=== PATIENT | male | born 1940 | race Caucasian/White ===

== ENCOUNTER 2019-07-13 07:56 | Day surgery (SDC) | payer MEDICARE, OTHER ==
[2019-06-30 12:25] LABS: HEMOGLOBIN 11.8 g/dL (13.5-17.0); MEAN CORPUSCULAR HEMOGLOBIN 27.1 pg (27.0-33.4); MEAN CORPUSCULAR HGB CONC 32.7 g/dL (32.0-36.0); MEAN CORPUSCULAR VOLUME 83 fl (80-97); PLATELET COUNT 240 10^3/uL (150-450); RED BLOOD COUNT 4.35 10^6/uL (4.35-5.55); RED CELL DISTRIBUTION WIDTH 14.9 % (11.5-14.0); WHITE BLOOD COUNT 9.8 10^3/uL (4.0-10.5)
[2019-06-30 12:26] LABS: INTERNATIONAL RATION (INR) 1.08
[2019-06-30 12:27] LABS: PARTIAL THROMBOPLASTIN TIME 29.7 SEC (23.5-35.8)
[2019-06-30 12:50] LABS: ANION GAP 9 (5-19); BLOOD UREA NITROGEN 25 mg/dL (7-20); CALCIUM 9.2 mg/dL (8.4-10.2); CARBON DIOXIDE 23 mmol/L (22-30); CHLORIDE 110 mmol/L (98-107); GLUCOSE 100 mg/dL (75-110); POTASSIUM 4.6 mmol/L (3.6-5.0)
--- NOTE | 2019-06-30 12:59 | EKG REPORT ---
SEVERITY:- ABNORMAL ECG - SINUS RHYTHM ATRIAL PREMATURE COMPLEX PROBABLE LEFT ATRIAL ABNORMALITY RBBB AND LAFB CONSIDER LEFT VENTRICULAR HYPERTROPHY : Confirmed by: Gigi Dyson MD 30-Jun-2019 12:58:16
[~2019-07-13 07:56] MED LIST: CEFAZOLIN SODIUM 1 GM in DEXTROSE 5%-WATER 50 ML IV PRN; LACTATED RINGERS 1000 ML IV PRN; LIDOCAINE 0.5% INJ-PF (5 MG/ML) 50 ML SDV SUBCUT PRN
[2019-07-13] MEDS ORDERED: SODIUM BICARBONATE 4.2% INJ (2.5 MEQ/5 ML) VIAL ONE (08:02)
[2019-07-13] MEDS ORDERED: LIDOCAINE 1%/EPINEPHRINE INJ 20 ML VIAL ONE (08:02)
[2019-07-13] MEDS ORDERED: POVIDONE-IODINE 5% OPH PREP SOLN 30 ML ONE (08:02)
[2019-07-13] MEDS ORDERED: MIDAZOLAM 2 MG/2 ML INJ ONE (10:08)
[2019-07-13] MEDS ORDERED: PROPOFOL INJ 200 MG/20 ML VIAL IV ONE (10:08)
[2019-07-13] MEDS ORDERED: FENTANYL CITRATE INJ/PF 100 MCG/2 ML AMPUL ONE (10:08)
[2019-07-13] MEDS ORDERED: DEXMEDETOMIDINE INJ 80 MCG/20 ML VIAL IV ONE (10:55)
[2019-07-13] MEDS ORDERED: PROMETHAZINE HCL INJ 25 MG/1 ML VIAL IV PRN ×2 (11:25)
[2019-07-13] MEDS ORDERED: MEPERIDINE HCL/PF INJ 25 MG/1 ML DISP.SYRIN IV PRN (11:25)
[2019-07-13] MEDS ORDERED: DIPHENHYDRAMINE HCL 50 MG/ML VIAL IV PRN (11:25)
[2019-07-13] MEDS ORDERED: FENTANYL CITRATE INJ/PF 100 MCG/2 ML AMPUL IV PRN ×3 (11:25)
--- NOTE | 2019-07-13 11:40 | Operative Report ---
Operative Report DATE OF SURGERY: 07/13/19 PREOPERATIVE DIAGNOSIS: Biopsy-proven basal cell carcinoma of the left ear/pret ragal with positive deep margin POSTOPERATIVE DIAGNOSIS: Same OPERATION: Excision of basal cell carcinoma from the left ear pretragal region with frozen section margin control and reconstruction with a cheek sliding advancement flap SURGEON: BONNIE LAUREANO ANESTHESIA: LMAC TISSUE REMOVED OR ALTERED: Basal cell carcinoma COMPLICATIONS: None ESTIMATED BLOOD LOSS: 2 cc PROCEDURE: Patient seen and was marked prior to being brought into the operating room. Patient was brought into the operating room and placed on the operating room table in a supine position. Patient was then prepped with a Betadine scrub and Betadine solution and draped in a sterile and aseptic manner. The area was then marked. 12 O'clock was marked towards the sideburn 3 O'clock was marked towards the helix 6:00 was marked towards the lobule 9:00 was marked towards the cheek The area was then anesthetized with 1% lidocaine with epinephrine and bicarbonate for its anesthetic and hemostatic effects. The area was then excised and marked at 12:00. The specimen was sent for frozen section. The results came back that the deep and lateral margins were free. We had considered a primary closure but this would go against the natural relaxed skin tension lines. A primary closure would be too tight and would have increased chance of dehiscence. This will leave more of a scar so we decided to use a cheek sliding advancement flap reconstruction which would camouflage the scar better and take tension off of the closure so that would be less chances of complications. By using a cheek sliding advancement flap this would allow us to use the facelift plane to develop the flap and advance this into the area of the defect. This would camouflage the scar on the ear and it would also give us the mobility of the flap to cause a tension-free closure. The patient's cheek and skin were very thick and there was no mobility and the only way to close this and get the best results with the least amount of complications was undermining this and developing the facelift flap and creating a cheek sliding advancement flap reconstruction for the defect. Then we went ahead and outlined the flap and anesthetized it. We then incised the flap and developed a flap maintaining the subdermal plexus. Then we undermined 360 to allow for plate like scarring and minimize trap door deformity. Throughout the case hemostasis was achieved with the bipolar. We then sutured the flap into its new position using 4-0 Vicryl for the subcutaneous and deep dermis. Skin was closed with a running subcuticular suture stitch using 4-0 PDS with knots being tied on the outside. And 4-0 PDS suture was used for support and placed in the central area of the incision. We then applied tincture benzoin and Steri-Strips followed by a light pressure dressing. Patient was then reversed from anesthesia and taken to the [facility] for recovery. The patient tolerated well. There were no complications. Lesion size was approximately 1.7 cm please see pathology for actual size. Portions of this note may be dictated using Rukuku voice recognition software. Occasional variations and spelling and vocabulary could be possible and are unintentional. Additionally, there is a chance that some errors may not be caught or corrected. Please notify the author of any discrepancies noted or if any statements are unclear. Subjective: No complaints Objective: Vital signs stable afebrile No bleeding Dressing intact Assessment and plan: Doing well. Elevate the operative site. Resume medications. Take antibiotics for 1 day Follow-up Full instructions were given to the patient and family and they understand Portions of this note may be dictated using Rukuku voice recognition software. Occasional variations and spelling and vocabulary could be possible and are unintentional. Additionally, there is a chance that some errors may not be caught or corrected. Please notify the offer of any discrepancies noted or if any statements are unclear.
--- NOTE | 2019-07-13 11:41 | Discharge Summary ---
Discharge Summary (SDC) - Discharge Final Diagnosis: Basal cell carcinoma of the left ear pretragal area Date of Surgery: 07/13/19 Condition: Good Treatment or Instructions: Leave the top dressing on for 2 days, then removed. Leave the steri-strip tapes on for 5 days, then removal. Then cleaning wound with peroxide and apply Neosporin/bacitracin 3 times per day. Antibiotics for 1 day, then discontinue. Elevate operative area to decrease swelling. Do not strain, or lift heavy objects. Call for excessive bleeding, increased temperature of 101, uncontrolled pain, or excessive nausea or vomiting. You may reach Dr. Pedersen through his office at [phone]. In the event of an emergency after hours, then contact Dr. Pedersen through [facility]. Return to the office for a postop check on . The time will be scheduled by the nursing staff of [facility] prior to discharge. Please give the patient a copy of their labs and EKG so they can bring this to their PMD. Thank you Portions of this note may be dictated using [employer] Dragon voice recognition software. Occasional variations and spelling and vocabulary could be possible and are unintentional. Additionally, there is a chance that some errors may not be caught or corrected. Please notify the offer of any discrepancies noted or if any statements are unclear. Referrals: KENYON ALVARENGA MD [Primary Care Provider] - Discharge Diet: As Tolerated Discharge Activity: No Lifting/Push/Pulling Report the Following to Your Physician Immediately: Unusual Bleeding - Keep head elevated. Do not sleep on the incision.
[2019-07-13 13:48] VITALS: BP 171/70
== END 2019-07-13 13:10 | disposition home or self-care (01) ==
LOC: OROUT 07:56
PROVIDERS: ATTEND Plastic Surgery
DX: C44.219 Basal cell carcinoma of skin of left ear and external auricular canal (principal); L57.0 Actinic keratosis; L57.8 Other skin changes due to chronic exposure to nonionizing radiation; Z79.01 Long term (current) use of anticoagulants; J44.9 Chronic obstructive pulmonary disease, unspecified; I10 Essential (primary) hypertension; R06.02 Shortness of breath
CPT/HCPCS: 93005; 36415 ×2; 84132; 85027; 85610; 85730; 80048; 88305 ×2; 88331 ×2; 93010; 00120; 14060; J2250; J0690; J3010; J3490 ×3; J7060; J2704; 120

== ENCOUNTER 2019-08-01 15:53 | Inpatient (IN) | payer MEDICARE, OTHER ==
[2019-08-01] MEDS ORDERED: ACETAMINOPHEN 325 MG TABLET PO ONE (16:01)
[2019-08-01] MEDS ORDERED: NORMAL SALINE 1000 ML 1,000 ML IV ONE (16:02)
--- NOTE | 2019-08-01 16:06 | ER Document Report ---
ED Medical Screen (RME) - General Chief Complaint: Altered Mental Status Stated Complaint: ALTERED Time Seen by Provider: 08/01/19 15:57 Primary Care Provider: KENYON ALVARENGA MD [Primary Care Provider] - Follow up as needed Mode of Arrival: Wheelchair Information source: Patient, Relative Notes: Patient presents with altered mental status that started sometime last evening. Patient's brother states that patient lives at home with a different brother who states that patient has had slurred speech and confusion off and on since last night. Patient with fever in triage and complains of generalized body aches. Patient speech and gait off per family member. I have greeted and performed a rapid initial assessment of this patient. A comprehensive ED assessment and evaluation of the patient, analysis of test results and completion of the medical decision making process will be conducted by additional ED providers. TRAVEL OUTSIDE OF THE [place] IN LAST 30 DAYS: No - Related Data Allergies/Adverse Reactions: No Known Allergies Allergy (Verified 08/01/19 15:58) Home Medications: list not available Past Medical History - Social History Chew tobacco use (# tins/day): No Frequency of alcohol use: None Drug Abuse: None - Past Medical History Cardiac Medical History: Reports: Hx Congestive Heart Failure, Hx Hypertension Denies: Hx Coronary Artery Disease, Hx Heart Attack Pulmonary Medical History: Reports: Hx Asthma, Hx COPD Denies: Hx Bronchitis, Hx Pneumonia Neurological Medical History: Denies: Hx Cerebrovascular Accident, Hx Seizures Renal/ Medical History: Reports: Hx Benign Prostatic Hyperplasia, Hx Kidney Stones, Hx Renal Insufficiency Musculoskeltal Medical History: Reports Hx Arthritis Psychiatric Medical History: Denies: Hx Depression Past Surgical History: Reports: Hx Cholecystectomy - Immunizations Hx Diphtheria, Pertussis, Tetanus Vaccination: Yes Physical Exam - Neurological Tyner Coma Scale Eye Opening: Spontaneous Rachel Coma Scale Verbal: Confused Rachel Coma Scale Motor: Obeys Commands Tyner Coma Scale Total: 14 Speech: Dysarthria Doctor's Discharge - Discharge Referrals: KENYON ALVARENGA MD [Primary Care Provider] - Follow up as needed
--- NOTE | 2019-08-01 16:34 | RADIOLOGY REPORT (SQ) ---
EXAM DESCRIPTION: CHEST 2 VIEWS COMPLETED DATE/TIME: 08/01/2019 4:23 pm REASON FOR STUDY: fever, AMS COMPARISON: Chest radiographs 07/30/2016 EXAM PARAMETERS: NUMBER OF VIEWS: two views TECHNIQUE: Digital Frontal and Lateral radiographic views of the chest acquired. RADIATION DOSE: NA LIMITATIONS: none FINDINGS: LUNGS AND PLEURA: Hyperexpanded lungs with flattening of the hemidiaphragms. No opacities , masses or pneumothorax. No pleural effusion. MEDIASTINUM AND HILAR STRUCTURES: No masses or contour abnormalities. HEART AND VASCULAR STRUCTURES: Unchanged cardiomediastinal contours. BONES: No acute findings. HARDWARE: None in the chest. OTHER: No other significant finding. IMPRESSION: NO ACUTE RADIOGRAPHIC FINDING IN THE CHEST. TECHNICAL DOCUMENTATION: JOB ID: [id number] [email or web address]- All Rights Reserved Reading location - IP/workstation name: [email or web address]
--- NOTE | 2019-08-01 16:37 | RADIOLOGY REPORT (SQ) ---
EXAM DESCRIPTION: CT HEAD WITHOUT COMPLETED DATE/TIME: 08/01/2019 4:23 pm REASON FOR STUDY: AMS COMPARISON: None. TECHNIQUE: Axial images acquired through the brain without intravenous contrast. Images reviewed wi th bone, brain and subdural windows. Additional sagittal and coronal reconstructions were generated. Images stored on PACS. All CT scanners at this facility use dose modulation, iterative reconstruction, and/or weight based d osing when appropriate to reduce radiation dose to as low as reasonably achievable (ALARA). [facility]: Dose Right [facility]: CareDose [facility]: Dose Right [facility]: Teradose 4D [facility]: [employer] RADIATION DOSE: CT Rad equipment meets quality standard of care and radiation dose reduction techniq ues were employed. CTDIvol: 53.2 mGy. DLP: 1097 mGy-cm. mGy. LIMITATIONS: None. FINDINGS: VENTRICLES: Prominent ventricles secondary to involutional atrophy. CEREBRUM: Diffuse brain parenchymal volume loss. No masses. No hemorrhage. No midline shift. No e vidence for acute infarction. Confluent areas of low density in the white matter most likely chronic small vessel ischemic changes. CEREBELLUM: No masses. No hemorrhage. No alteration of density. No evidence for acute infarction. EXTRAAXIAL SPACES: No fluid collections. No masses. ORBITS AND GLOBE: No intra- or extraconal masses. Normal contour of globe without masses. CALVARIUM: No fracture. PARANASAL SINUSES: No fluid or mucosal thickening. SOFT TISSUES: No mass or hematoma. OTHER: No other significant finding. IMPRESSION: MICROVASCULAR ISCHEMIA AND GENERALIZED ATROPHY. NO ACUTE IMAGING FINDINGS IN THE BRAIN EVIDENCE OF ACUTE STROKE: NO. COMMENT: Quality ID # [id number]: Final reports with documentation of one or more dose reduction techniques (e.g., Automated exposure control, adjustment of the mA and/or kV according to patient size, use of iterative reconstruction technique) TECHNICAL DOCUMENTATION: JOB ID: [id number] [employer]- All Rights Reserved Reading location - IP/workstation name: [email or web address]
[2019-08-01 16:55] LABS: HEMATOCRIT 34.1 % (37.9-51.0); HEMOGLOBIN 11.2 g/dL (13.5-17.0); MEAN CORPUSCULAR HEMOGLOBIN 26.6 pg (27.0-33.4); MEAN CORPUSCULAR HGB CONC 32.8 g/dL (32.0-36.0); MEAN CORPUSCULAR VOLUME 81 fl (80-97); PLATELET COUNT 248 10^3/uL (150-450); RED BLOOD COUNT 4.21 10^6/uL (4.35-5.55); WHITE BLOOD COUNT 23.1 10^3/uL (4.0-10.5)
[2019-08-01 17:01] LABS: VENOUS BLOOD BASE EXCESS -0.9 mmol/L; VENOUS BLOOD HCO3 22.8 mmol/L (20-32); VENOUS BLOOD PCO2 34.7 mmHg (35-63); VENOUS BLOOD PH 7.44 (7.30-7.42)
[2019-08-01 17:03] LABS: INTERNATIONAL RATION (INR) 1.14; PROTHROMBIN TIME 14.7 SEC (11.4-15.4)
[2019-08-01 17:04] LABS: PARTIAL THROMBOPLASTIN TIME 34.9 SEC (23.5-35.8)
[2019-08-01 17:16] LABS: ALBUMIN 3.5 g/dL (3.5-5.0); ALKALINE PHOSPHATASE 77 U/L (38-126); ANION GAP 10 (5-19); ASPARTATE AMINO TRANSFERASE 15 U/L (17-59); BILIRUBIN,TOTAL 1.4 mg/dL (0.2-1.3); BLOOD UREA NITROGEN 25 mg/dL (7-20); CARBON DIOXIDE 23 mmol/L (22-30); CHLORIDE 106 mmol/L (98-107); GLUCOSE 123 mg/dL (75-110); POTASSIUM 3.9 mmol/L (3.6-5.0); TOTAL PROTEIN 6.4 g/dL (6.3-8.2)
[2019-08-01 17:19] LABS: ABSOLUTE LYMPHOCYTES# (MANUAL) 0.9 10^3/uL (0.5-4.7); ABSOLUTE MONOCYTES # (MANUAL) 2.5 10^3/uL (0.1-1.4); BASOPHILS % (MANUAL) 1 % (0-2); EOSINOPHILS % (MANUAL) 0 % (0-6); LYMPHOCYTES % (MANUAL) 3 % (13-45); MONOCYTES % (MANUAL) 11 % (3-13); SEGMENTED NEUTROPHILS % (MAN) 84 % (42-78); TOTAL CELLS COUNTED 100
[2019-08-01 17:20] LABS: ANISOCYTOSIS SLIGHT; PLATELET COMMENT ADEQUATE; POLYCHROMASIA SLIGHT
--- NOTE | 2019-08-01 17:20 | ER Document Report ---
ED General - General Chief Complaint: Altered Mental Status Stated Complaint: ALTERED Time Seen by Provider: 08/01/19 15:57 Primary Care Provider: KENYON ALVARENGA MD [Primary Care Provider] - Follow up as needed Mode of Arrival: Wheelchair Notes: 78-year-old male brought in by EMS for slurred speech, disorientation, urinary incontinence, decreased oral intake and fever all of which started today. Patient was completely normal last evening. Normally walks on his own, is oriented to person place and time. Patient has acted like this in the past when he has had prior urinary tract infection. Patient currently complains of nausea this morning and dry heaving as well as left lower quadrant abdominal pain. TRAVEL OUTSIDE OF THE [place] IN LAST 30 DAYS: No - Related Data Allergies/Adverse Reactions: No Known Allergies Allergy (Verified 08/01/19 15:58) Home Medications: list not available Past Medical History - General Information source: Patient, Relative - Social History Smoking Status: Former Smoker Chew tobacco use (# tins/day): No Frequency of alcohol use: None Drug Abuse: None Family History: Reviewed & Not Pertinent Patient has suicidal ideation: No Patient has homicidal ideation: No - Past Medical History Cardiac Medical History: Reports: Hx Congestive Heart Failure, Hx Hypertension Denies: Hx Coronary Artery Disease, Hx Heart Attack Pulmonary Medical History: Reports: Hx Asthma, Hx COPD Denies: Hx Bronchitis, Hx Pneumonia Neurological Medical History: Denies: Hx Cerebrovascular Accident, Hx Seizures Renal/ Medical History: Reports: Hx Benign Prostatic Hyperplasia, Hx Kidney Stones, Hx Renal Insufficiency Musculoskeletal Medical History: Reports Hx Arthritis Psychiatric Medical History: Denies: Hx Depression Past Surgical History: Reports: Hx Cholecystectomy - Immunizations Hx Diphtheria, Pertussis, Tetanus Vaccination: Yes Hx Pneumococcal Vaccination: 06/01/13 Review of Systems - Review of Systems Constitutional: See HPI, Fever EENT: No symptoms reported Gastrointestinal: See HPI Genitourinary: See HPI, Incontinence Neurological/Psychological: See HPI, Confusion. denies: Dementia -: Yes All other systems reviewed and negative Physical Exam - Vital signs Vitals: Temp Pulse Resp BP Pulse Ox 101.1 F H 95 16 187/75 H 94 08/01/19 16:04 08/01/19 16:04 08/01/19 16:04 08/01/19 16:04 08/01/19 16:04 Interpretation: Hypertensive, Febrile - Notes Notes: GENERAL: Surprisingly alert considering the report received from family and EMS, wheeled back from CT scan sitting straight up in the wheelchair, able to stand and pivot to the bed with minimal assistance, No acute distress. HEAD: Normocephalic, atraumatic EYES: Pupils equal, round and reactive to light, extraocular movements intact. ENT: Oral mucosa moist, tongue midline. NECK: Full range of motion, supple, trachea midline. LUNGS: Clear to auscultation bilaterally, no wheezes, rales or rhonchi, no respiratory distress. HEART: Regular rate and rhythm, no murmurs, gallops, rubs. ABDOMEN: Soft, left lower quadrant abdominal tenderness to palpation, nondistended, bowel sounds present in all 4 quadrants. EXTREMITIES: Moves all 4 extremities spontaneously, no edema, radial and dorsalis pedis pulses 2/4 bilaterally. No cyanosis. NEUROLOGICAL: Alert and oriented x3, able to tell me who the president is and his age, unable to name the exact day of the week,, normal speech, no facial droop, biceps and patellar DTRs 2+ bilaterally. PSYCH: Normal mood, normal affect. SKIN: Warm, Dry, normal turgor, no rashes or lesions noted. Course - Re-evaluation Re-evalutation: 08/01/19 20:00 CBC shows leukocytosis of 23.1, mild anemia with hemoglobin 11.2, platelets normal, INR slightly prolonged, venous blood gas shows slightly elevated pH at 7.44, CMP shows stable renal failure with a BUN of 25 and creatinine 1.66, lactic acid is normal at 1.4, troponin is elevated at 0.138, suspect this is due to a supply and demand mismatch induced by sepsis. proBNP elevated at 7510, patient has peripheral edema but no fluid on the lungs, lungs do not have any crackles, urinalysis shows small blood and large leukocyte esterase with greater than 182 WBCs. This was sent for culture and blood cultures were sent as well. CT scan of head shows no acute process, chest x-ray shows no acute process, CT scan of the abdomen pelvis was ordered given his left lower quadrant abdominal pain, fever and nausea and it also showed no acute process, did show diverticulosis but no evidence of diverticulitis. Patient is being treated with Rocephin. Discussed with this patient who has a history of diastolic CHF and Peripheral edema and noncompliance with his Lasix as well as the elevated proBNP that sepsis guidelines call for a 30 ml/kg fluid bolus, but I am concerned this could put him into pulmonary edema from fluid overload. Discussed with patient that there are guidelines from the surrounding sepsis campaign that state he should receive a 30 mL/kg fluid bolus but we have to balance that with the risk of pulmonary edema. Patient states that he already feels like he has too much fluid, does not want to risk being intubated, refuses the 30 mL/kg fluid bolus. 08/01/19 20:[address] Cha, accepts patient for admission. - Vital Signs Vital signs: Temp Pulse Resp BP Pulse Ox 100.9 F H 72 18 148/55 H 95 08/01/19 19:10 08/01/19 17:20 08/01/19 19:14 08/01/19 19:14 08/01/19 19:14 - Laboratory Result Diagrams: 08/01/19 16:33 08/01/19 16:33 Laboratory results interpreted by me: 08/01/19 08/01/19 08/01/19 16:33 16:33 16:33 WBC 23.1 H RBC 4.21 L Hgb 11.2 L Hct 34.1 L MCH 26.6 L RDW 15.0 H Seg Neuts % (Manual) 84 H Lymphocytes % (Manual) 3 L Abs Neuts (Manual) 19.4 H Abs Monocytes (Manual) 2.5 H VBG pH 7.44 H VBG pCO2 34.7 L BUN 25 H Creatinine 1.66 H Est GFR ( Amer) 49 L Est GFR (MDRD) Non-Af 40 L Glucose 123 H Total Bilirubin 1.4 H AST 15 L NT-Pro-B Natriuret Pep Urine Protein Urine Glucose (UA) Urine Blood Leukocyte Esterase Rfl 08/01/19 08/01/19 16:33 17:31 WBC RBC Hgb Hct MCH RDW Seg Neuts % (Manual) Lymphocytes % (Manual) Abs Neuts (Manual) Abs Monocytes (Manual) VBG pH VBG pCO2 BUN Creatinine Est GFR ( Amer) Est GFR (MDRD) Non-Af Glucose Total Bilirubin AST NT-Pro-B Natriuret Pep 7510 H Urine Protein >=500 H Urine Glucose (UA) 50 H Urine Blood SMALL H Leukocyte Esterase Rfl LARGE H - EKG Interpretation by Me Additional EKG results interpreted by me: 08/01/19 17:18 EKG shows sinus rhythm at a rate of 94, left anterior hemiblock, right bundle branch block, no STEMI, poor R wave progression per my interpretation. Discharge - Discharge Clinical Impression: CKD (chronic kidney disease) stage 3, GFR 30-59 ml/min UTI (urinary tract infection) Qualifiers: Urinary tract infection type: acute cystitis Hematuria presence: with hematuria Qualified Code(s): N30.01 - Acute cystitis with hematuria Diastolic CHF Qualifiers: Heart failure chronicity: chronic Qualified Code(s): I50.32 - Chronic diastolic (congestive) heart failure Sepsis Qualifiers: Sepsis type: sepsis due to unspecified organism Sepsis acute organ dysfunction status: with acute organ dysfunction Severe sepsis acute organ dysfunction type: critical illness myopathy Condition: Fair Disposition: HOME, SELF-CARE Referrals: KENYON ALVARENGA MD [Primary Care Provider] - Follow up as needed
[2019-08-01 17:46] LABS: APPEARANCE,URINE CLOUDY; BILIRUBIN,URINE NEGATIVE (NEGATIVE); COLOR,URINE YELLOW; GLUCOSE, URINE 50 mg/dL (NEGATIVE); KETONES,URINE NEGATIVE (NEGATIVE); PROTEIN,URINE >=500 mg/dL (NEGATIVE); URINE SPECIFIC GRAVITY 1.017; UROBILINOGEN,URINE NEGATIVE mg/dL (<2.0)
--- NOTE | 2019-08-01 19:05 | RADIOLOGY REPORT (SQ) ---
EXAM DESCRIPTION: CT ABD/PELVIS WITH IV ONLY COMPLETED DATE/TIME: 08/01/2019 6:27 pm REASON FOR STUDY: fver, LLQ abd pain COMPARISON: CT abdomen pelvis 05/30/2015 TECHNIQUE: CT scan of the abdomen and pelvis performed using helical scanning technique with dynamic intravenous contrast injection. No oral contrast. Images reviewed with lung, soft tissue, and bone windows. Reconstructed coronal and sagittal MPR images reviewed. Delayed images for evaluation of the urinary system also acquired. All images stored on PACS. All CT scanners at this facility use dose modulation, iterative reconstruction, and/or weight based d osing when appropriate to reduce radiation dose to as low as reasonably achievable (ALARA). [facility]: Dose Right [facility]: CareDose [facility]: Dose Right [facility]: Teradose 4D [facility]: [employer] CONTRAST TYPE AND DOSE: contrast/concentration: Isovue 300.00 mg/ml; Total Contrast Delivered: 100.0 ml; Total Saline Delivered: 71.0 ml 100 mL Isovue 300- low osmolar. RENAL FUNCTION: BUN 25, creatinine 1.66 RADIATION DOSE: CT Rad equipment meets quality standard of care and radiation dose reduction techniq ues were employed. CTDIvol: 20.0 - 20.5 mGy. DLP: 2454 mGy-cm.. LIMITATIONS: None. FINDINGS: LOWER CHEST: No significant findings. Mild bibasilar atelectasis and/or scarring. Conway ry and aortic valvular calcifications. LIVER: Normal size. Stable ill-defined 1.5 cm hypoattenuating lesion within the hepatic tip. No dil ated ducts. SPLEEN: Normal size. No focal lesions. PANCREAS: No masses. No significant calcifications. No adjacent inflammation or peripancreatic fluid collections. Pancreatic duct not dilated. GALLBLADDER: Surgically absent. ADRENAL GLANDS: No significant masses or asymmetry. RIGHT KIDNEY AND URETER: Numerous renal cysts. No significant calcifications. No hydronephrosis o r hydroureter. LEFT KIDNEY AND URETER: Numerous renal cysts. No significant calcifications. No hydronephrosis or hydroureter. AORTA AND VESSELS: No aneurysm. No dissection. Renal arteries, SMA, celiac without stenosis. RETROPERITONEUM: No retroperitoneal adenopathy, hemorrhage or masses. BOWEL AND PERITONEAL CAVITY: Mild descending and sigmoid colon diverticular disease. No masses or in flammatory changes. No free fluid or peritoneal masses. APPENDIX: Normal. PELVIS: Prostatic enlargement. No free fluid. Normal bladder. ABDOMINAL WALL: No masses. No hernias. BONES: No significant or acute findings. OTHER: No other significant finding. IMPRESSION: Descending/sigmoid colon diverticulosis without evidence of acute diverticulitis. No ac tena intra-abdominal findings. TECHNICAL DOCUMENTATION: JOB ID: [id number] Quality ID # [id number]: Final reports with documentation of one or more dose reduction techniques (e.g., Au tomated exposure control, adjustment of the mA and/or kV according to patient size, use of iterative reconstruction technique) 2010 [employer]- All Rights Reserved Reading location - IP/workstation name: [email or web address]
[2019-08-01] MEDS ORDERED: CEFTRIAXONE 1 GM/D5W RTU 1 GM/50 ML RTUPB IV ONE (19:58)
[2019-08-01] MEDS ORDERED: LEVALBUTEROL HCL NEB 0.63 MG/3 ML AMPUL NEB PRN (20:52)
[2019-08-01] MEDS ORDERED: HYDRALAZINE HCL INJ/PF 20 MG/1 ML SDV IV PRN (20:52)
[2019-08-01] MEDS ORDERED: MAGNESIUM HYDROXIDE SUSP 30 ML UDCUP PO PRN (20:52)
[2019-08-01] MEDS ORDERED: MORPHINE SULFATE 10 MG/ML INJ IV PRN ×3 (20:52)
[2019-08-01] MEDS ORDERED: ACETAMINOPHEN 325 MG TABLET PO PRN (20:52)
[2019-08-01] MEDS ORDERED: MAG HYDROX/AL HYDROX/SIMETH SUSP 30 ML UDCUP PO PRN (20:52)
[2019-08-01] MEDS ORDERED: TEMAZEPAM 15 MG CAPSULE PO PRN (21:01)
[2019-08-01] MEDS ORDERED: ONDANSETRON HCL INJ/PF 4 MG/2 ML SDV IV PRN (21:01)
[2019-08-01] MEDS ORDERED: BUMETANIDE INJ/PF 1 MG/4 ML SDV IV ONE (21:30)
[2019-08-01] MEDS: HEPARIN SOD (PORCINE) 5,000 UNIT/ML 1 ML VIAL SUBCUT SCH (23:08)
[2019-08-01] MEDS: MONTELUKAST SODIUM 10 MG TABLET PO SCH (23:08)
[2019-08-01] MEDS ORDERED: INFLUENZA QUAD (6MOS+) 2019-20 VAC 0.5 ML SYR IM ONE (23:20)
--- NOTE | 2019-08-01 23:37 | EKG REPORT ---
SEVERITY:- ABNORMAL ECG - SINUS RHYTHM PROBABLE LEFT ATRIAL ABNORMALITY RBBB AND LAFB LEFT VENTRICULAR HYPERTROPHY : Confirmed by: Maria Luz Cortez 01-Aug-2019 23:34:49
[2019-08-02] MEDS: IPRATROPIUM BROMIDE 0.02% NEB 0.5 MG/2.5 ML AMPUL NEB SCH ×3 (00:08→16:54)
[2019-08-02] MEDS: LEVALBUTEROL HCL NEB 1.25 MG/3 ML AMPUL NEB SCH ×3 (00:08→16:54)
--- NOTE | 2019-08-02 00:28 | PDOC H&P ---
History of Present Illness Admission Date/PCP: 08/01/2019 20:19 KENYON ALVARENGA MD Patient complains of: Altered mental status History of Present Illness: JANEY ORTEGA is a 78 year old male who presented to the emergency room via EMS with a 1 day history of altered mental status. Patient was noted by his family to demonstrate mental confusion with slurring of his speech and an off-balance gait beginning on the evening of 07/31/2019. The patient states that he developed a subjective fever and malaise accompanied by decreased oral intake and urinary incontinence. He also developed the associated symptoms of nausea, dry heaves and moderate constant pressure discomfort in his left lower abdomen. He denies other associated or accompanying signs and symptoms. He admits similar prior episodes when he has experienced urinary tract infections. His altered mental status rapidly resolved when he was given Tylenol for his fever and IV fluids were initiated by EMS. He has not identified any additional aggravating or ameliorating factors for his altered mental status. In the emergency room he was found to have an elevated temperature at 101.1 F with a white blood count of 23,100 and a normal serum lactic acid. A urine specimen revealed marked pyuria. Patient was subsequently treated with IV Rocephin in the emergency room and admitted to the hospital for further evaluation and treatment. Past Medical History Cardiac Medical History: Reports: Congestive Heart Failure, Hypertension Denies: Coronary Artery Disease, Myocardial Infarction Pulmonary Medical History: Reports: Chronic Obstructive Pulmonary Disease (COPD) Denies: Asthma, Bronchitis, Pneumonia EENT Medical History: Denies: Cataracts, Ears - Hearing aids Neurological Medical History: Denies: Hemorrhagic CVA, Ischemic CVA, Seizures Endocrine Medical History: Reports: Obesity Denies: Diabetes Mellitus Type 1, Diabetes Mellitus Type 2, Hyperthyroidism, Hypothyroidism Renal/ Medical History: Reports: Chronic Kidney Disease, Nephrolithiasis, Other - Benign prostatic hyperplasia Malignancy Medical History: Reports: None GI Medical History: Reports: Gastroesophageal Reflux Disease Denies: Cirrhosis, Crohn's Disease, Hepatitis, Peptic Ulcer Disease, Ulcerative Colitis Musculoskeltal Medical History: Reports: Arthritis Denies: Gout Skin Medical History: Denies: Eczema, Psoriasis Psychiatric Medical History: Denies: Alcohol Dependency, Depression, Substance Abuse, Tobacco Dependency Traumatic Medical History: Reports: None Hematology: Denies: Anemia, Bleeding Tendencies Infectious Medical History: Reports: None Past Surgical History Past Surgical History: Reports: Cholecystectomy Social History Information Source: Patient Lives with: Family Smoking Status: Former Smoker Electronic Cigarette use?: No Frequency of Alcohol Use: None Hx Recreational Drug Use: No Drugs: None Hx Prescription Drug Abuse: No - Advance Directive Resuscitation Status: Full Code Surrogate healthcare decision maker:: Aidan Ortega Family History Family History: DM, Hypertension. denies: CAD, Malignancy Parental Family History Reviewed: Yes Children Family History Reviewed: No Sibling(s) Family History Reviewed.: Yes Medication/Allergy Home Medications: Potassium Chloride [Klor-Con 10] 10 meq PO BID #60 tablet.sa 05/11/14 Lisinopril [Prinivil 10 mg Tablet] 40 mg PO DAILY 05/30/15 Albuterol Sulfate [Albuterol Sulfate 2.5mg/3 mL] 1 vial IH Q4 PRN #30 vial Nebulizer [Nebulizer Machine] 1 each MC ASDIR PRN #1 kit 07/30/16 Albuterol Sulfate [Ventolin Hfa 8 gm Mdi (1 Mdi/ER Disp)] 2 puff PO QID PRN 06/30/19 Budesonide/Formoterol Fumarate [Symbicort HFA 160-4.5 mcg Inhaler 6 gm] 1 puff PO DAILY PRN 06/30/19 Furosemide 40 mg PO DAILY 06/30/19 Amlodipine Besylate [Norvasc 5 mg Tablet] 5 mg PO DAILY 07/13/19 Hydralazine HCl [Apresoline 50 mg Tablet] 50 mg PO BID 07/13/19 Montelukast Sodium [Singulair 10 mg Tablet] 10 mg PO QHS 07/13/19 Allergies/Adverse Reactions: No Known Allergies Allergy (Verified 08/01/19 15:58) Review of Systems Constitutional: PRESENT: fever(s), other - Malaise. ABSENT: chills Eyes: ABSENT: visual disturbances, other - Eye pain Ears: ABSENT: hearing changes, other - Ear pain Nose, Mouth, and Throat: ABSENT: headache(s), mouth pain, sore throat Cardiovascular: PRESENT: edema - Chronic edema of the bilateral lower extremities. ABSENT: chest pain, palpitations Respiratory: ABSENT: cough, dyspnea Gastrointestinal: PRESENT: as per HPI, abdominal pain - Left lower abdomen, nausea - With retching. ABSENT: constipation, diarrhea, vomiting Genitourinary: ABSENT: dysuria, hematuria Musculoskeletal: ABSENT: back pain, joint swelling, muscle weakness Integumentary: ABSENT: pruritus, rash Neurological: PRESENT: as per HPI, abnormal gait, abnormal speech, confusion. ABSENT: convulsions, focal weakness, memory loss, syncope Psychiatric: ABSENT: anxiety, depression Endocrine: ABSENT: cold intolerance, heat intolerance Hematologic/Lymphatic: ABSENT: easy bleeding, easy bruising Allergic/Immunologic: ABSENT: seasonal rhinorrhea Physical Exam Vital Signs: Temp Pulse Resp BP Pulse Ox 100.9 F H 72 18 148/55 H 95 08/01/19 19:10 08/01/19 17:20 08/01/19 19:14 08/01/19 19:14 08/01/19 19:14 Intake & Output 07/30/19 07/31/19 08/01/19 23:59 23:59 23:59 Weight 123.7 kg General appearance: PRESENT: no acute distress, cooperative, obese Head exam: PRESENT: atraumatic, normocephalic Eye exam: PRESENT: conjunctiva pink. ABSENT: conjunctival injection, scleral icterus Ear exam: PRESENT: normal external ear exam. ABSENT: bleeding, drainage Mouth exam: PRESENT: dry mucosa, neck supple Neck exam: ABSENT: thyromegaly, tracheal deviation Respiratory exam: PRESENT: decreased breath sounds - Mildly decreased breath sounds throughout all mejia, prolonged expiratory phas - Mildly prolonged expiratory phase noted in all mejia, rales - Fine bibasilar rales noted, symmetrical, unlabored, wheezes - Minimal expiratory wheezing noted in all mejia Cardiovascular exam: PRESENT: RRR. ABSENT: clicks, gallop, rubs Pulses: PRESENT: normal carotid pulses, normal radial pulses Vascular exam: PRESENT: normal capillary refill. ABSENT: pallor GI/Abdominal exam: PRESENT: normal bowel sounds, soft, tenderness - Mild s uprapubic and left lower abdominal tenderness without localization Rectal exam: PRESENT: deferred Extremities exam: PRESENT: pedal edema, +2 edema - 2+ pitting bilateral pretibial edema. ABSENT: joint swelling Musculoskeletal exam: ABSENT: deformity, dislocation Neurological exam: PRESENT: alert, oriented to person, oriented to place, oriented to time, oriented to situation, CN II-XII grossly intact. ABSENT: motor sensory deficit Psychiatric exam: PRESENT: appropriate affect, normal mood Skin exam: PRESENT: dry, intact, warm. ABSENT: jaundice, rash, urticaria Results Laboratory Results: 12/01/19 16:33 08/01/19 16:33 08/01/19 08/01/19 08/01/19 16:33 16:33 16:33 WBC 23.1 H RBC 4.21 L Hgb 11.2 L Hct 34.1 L MCV 81 MCH 26.6 L MCHC 32.8 RDW 15.0 H Plt Count 248 Seg Neutrophils % Not Reportable VBG pH 7.44 H VBG pCO2 34.7 L VBG HCO3 22.8 VBG Base Excess -0.9 Sodium 138.5 Potassium 3.9 Chloride 106 Carbon Dioxide 23 Anion Gap 10 BUN 25 H Creatinine 1.66 H Est GFR ( Amer) 49 L Glucose 123 H Calcium 9.0 Total Bilirubin 1.4 H AST 15 L Alkaline Phosphatase 77 Total Protein 6.4 Albumin 3.5 Urine Color Urine Appearance Urine pH Ur Specific [place] Urine Protein Urine Glucose (UA) Urine Ketones Urine Blood Urine RBC (Auto) 08/01/19 17:31 WBC RBC Hgb Hct MCV MCH MCHC RDW Plt Count Seg Neutrophils % VBG pH VBG pCO2 VBG HCO3 VBG Base Excess Sodium Potassium Chloride Carbon Dioxide Anion Gap BUN Creatinine Est GFR ( Amer) Glucose Calcium Total Bilirubin AST Alkaline Phosphatase Total Protein Albumin Urine Color YELLOW Urine Appearance CLOUDY Urine pH 5.0 Ur Specific [place] 1.017 Urine Protein >=500 H Urine Glucose (UA) 50 H Urine Ketones NEGATIVE Urine Blood SMALL H Urine RBC (Auto) 10 08/01/19 08/01/19 16:33 16:33 Troponin I 0.138 NT-Pro-B Natriuret Pep 7510 H Impressions: Chest X-Ray 08/01/19 16:02 IMPRESSION: NO ACUTE RADIOGRAPHIC FINDING IN THE CHEST. Head CT 08/01/19 16:02 IMPRESSION: MICROVASCULAR ISCHEMIA AND GENERALIZED ATROPHY. NO ACUTE IMAGING FINDINGS IN THE BRAIN EVIDENCE OF ACUTE STROKE: NO. Abdomen/Pelvis CT 08/01/19 16:29 IMPRESSION: Descending/sigmoid colon diverticulosis without evidence of acute diverticulitis. No acute intra-abdominal findings. Assessment and Plan - Diagnosis (1) UTI (urinary tract infection) Qualifiers: Urinary tract infection type: site unspecified Hematuria presence: without hematuria Qualified Code(s): N39.0 - Urinary tract infection, site not specified Is this a current diagnosis for this admission?: Yes (2) Encephalopathy Is this a current diagnosis for this admission?: Yes (3) SIRS (systemic inflammatory response syndrome) Is this a current diagnosis for this admission?: Yes (4) Chronic diastolic congestive heart failure Is this a current diagnosis for this admission?: Yes (5) BPH (benign prostatic hyperplasia) Qualifiers: Lower urinary tract symptom presence: unspecified whether lower urinary tract symptoms present Qualified Code(s): N40.0 - Benign prostatic hyperplasia without lower urinary tract symptoms Is this a current diagnosis for this admission?: Yes (6) CKD (chronic kidney disease) stage 3, GFR 30-59 ml/min Is this a current diagnosis for this admission?: Yes (7) Hypertension Qualifiers: Hypertension type: essential hypertension Qualified Code(s): I10 - Essential (primary) hypertension Is this a current diagnosis for this admission?: Yes (8) Chronic obstructive pulmonary disease Qualifiers: COPD type: unspecified COPD Qualified Code(s): J44.9 - Chronic obstructive pulmonary disease, unspecified Is this a current diagnosis for this admission?: Yes (9) Obesity (BMI 30-39.9) Is this a current diagnosis for this admission?: Yes - Plan Summary Summary: Patient is admitted to the medical service where he will receive the usual supportive and traumatic cares. He will be treated with IV antibiotics utilizing Rocephin initially pending urine and blood culture results. His serum lactic acid will be followed serially and his vital signs will be observed closely as well his mental status as part of the evaluation of possible sepsis. His antihypertensive and congestive heart failure medications will be adjusted to try to improve compliance as he will not take Lasix because it makes him pee too much. He will receive morphine sulfate 2 to 4 mg IV every 2 hours on an as- needed basis for pain utilizing a sliding scale. He will receive Tylenol 650 mg orally every 4 hours as needed for control of fever. He will be continued on his other usual medications as appropriate once his medication list has been victoria ified. Dietary consultation will be obtained for weight loss and appropriate treatment of congestive heart failure. An echocardiogram will be obtained. A CBC, metabolic profile and magnesium level will be followed as part of his ongoing management. - Time Time Spent with patient: 25-34 minutes Medications reviewed and adjusted accordingly: Yes Anticipated discharge: Home with Homehealth - Inpatient Certification Based on my medical assessment, after consideration of the patient's comorbidities, presenting symptoms, or acuity I expect that the services needed warrant INPATIENT care.: Yes I certify that my determination is in accordance with my understanding of Medicare's requirements for reasonable and necessary INPATIENT services [42 CFR 412.3e].: Yes Medical Necessity: Significant Comorbidiites Make Outpatient Treatment Too Risky, Need for Neurological Checks, Need for IV Antibiotics, Risk of Complication if Not Cared For in Hospital, Risk of Diagnosis Which Will Require Inpatient Eval/Care/Monitoring
[2019-08-02] MEDS ORDERED: DOXAZOSIN MESYLATE 1 MG TABLET PO ONE ×2 (00:29→01:00)
[2019-08-02] MEDS ORDERED: DOXAZOSIN MESYLATE 1 MG TABLET ONE (01:40)
[2019-08-02 05:09] LABS: HEMATOCRIT 32.6 % (37.9-51.0); HEMOGLOBIN 10.7 g/dL (13.5-17.0); MEAN CORPUSCULAR HEMOGLOBIN 26.4 pg (27.0-33.4); MEAN CORPUSCULAR HGB CONC 32.7 g/dL (32.0-36.0); MEAN CORPUSCULAR VOLUME 81 fl (80-97); PLATELET COUNT 222 10^3/uL (150-450); RED BLOOD COUNT 4.05 10^6/uL (4.35-5.55); RED CELL DISTRIBUTION WIDTH 14.7 % (11.5-14.0); WHITE BLOOD COUNT 21.3 10^3/uL (4.0-10.5)
[2019-08-02 05:24] LABS: ANION GAP 9 (5-19); BLOOD UREA NITROGEN 30 mg/dL (7-20); CALCIUM 8.6 mg/dL (8.4-10.2); CARBON DIOXIDE 25 mmol/L (22-30); CHLORIDE 103 mmol/L (98-107); CHOLESTEROL 143.74 mg/dL (0-200); GLUCOSE 116 mg/dL (75-110); POTASSIUM 3.6 mmol/L (3.6-5.0); TRIGLYCERIDES 106 mg/dL (<150)
[2019-08-02 05:35] LABS: DIRECT LDL 95 mg/dL (<100)
[2019-08-02] MEDS: HEPARIN SOD (PORCINE) 5,000 UNIT/ML 1 ML VIAL SUBCUT SCH ×4 (05:45→23:38)
[2019-08-02] MEDS: PANTOPRAZOLE SODIUM 40 MG TABLET.DR PO SCH ×2 (05:45→17:21)
[2019-08-02] MEDS: BUDESONIDE NEB 0.5 MG/2 ML AMPUL NEB SCH ×2 (07:55→21:20)
--- NOTE | 2019-08-02 08:53 | PDOC PROGRESS REPORT ---
Subjective Progress Note for:: 08/02/19 Subjective:: 08/02/2019-no complaints Reason For Visit: SIRS, URINARY TRACT INFECTION, CHRONIC KIDNEY Physical Exam Vital Signs: Temp Pulse Resp BP Pulse Ox 98.7 F 80 16 134/56 H 97 08/02/19 07:15 08/02/19 07:55 08/02/19 07:55 08/02/19 07:15 08/02/19 07:55 Intake & Output 08/01/19 08/02/19 08/03/19 06:59 06:59 06:59 Intake Total 50 Balance 50 Weight 120.9 kg General appearance: PRESENT: no acute distress, well-developed, well-nourished Head exam: PRESENT: atraumatic, normocephalic Eye exam: PRESENT: conjunctiva pink, EOMI, PERRLA. ABSENT: scleral icterus Ear exam: PRESENT: normal external ear exam Mouth exam: PRESENT: moist, tongue midline Neck exam: ABSENT: carotid bruit, JVD, lymphadenopathy, thyromegaly Respiratory exam: PRESENT: clear to auscultation eddi. ABSENT: rales, rhonchi, wheezes Cardiovascular exam: PRESENT: RRR. ABSENT: diastolic murmur, rubs, systolic murmur Pulses: PRESENT: normal dorsalis pedis pul Vascular exam: PRESENT: normal capillary refill GI/Abdominal exam: PRESENT: normal bowel sounds, soft. ABSENT: distended, guarding, mass, organolmegaly, rebound, tenderness Rectal exam: PRESENT: deferred Extremities exam: PRESENT: full ROM. ABSENT: calf tenderness, clubbing, pedal e corine Neurological exam: PRESENT: alert, awake, oriented to person, oriented to place, oriented to time, oriented to situation, CN II-XII grossly intact. ABSENT: motor sensory deficit Psychiatric exam: PRESENT: appropriate affect, normal mood. ABSENT: homicidal ideation, suicidal ideation Skin exam: PRESENT: dry, intact, warm. ABSENT: cyanosis, rash Results Laboratory Results: 08/02/19 04:39 08/02/19 04:39 08/01/19 08/01/19 08/01/19 16:33 16:33 16:33 WBC 23.1 H RBC 4.21 L Hgb 11.2 L Hct 34.1 L MCV 81 MCH 26.6 L MCHC 32.8 RDW 15.0 H Plt Count 248 Seg Neutrophils % Not Reportable VBG pH 7.44 H VBG pCO2 34.7 L VBG HCO3 22.8 VBG Base Excess -0.9 Sodium 138.5 Potassium 3.9 Chloride 106 Carbon Dioxide 23 Anion Gap 10 BUN 25 H Creatinine 1.66 H Est GFR ( Amer) 49 L Glucose 123 H Calcium 9.0 Magnesium Total Bilirubin 1.4 H AST 15 L Alkaline Phosphatase 77 Total Protein 6.4 Albumin 3.5 Triglycerides Cholesterol LDL Cholesterol Direct VLDL Cholesterol HDL Cholesterol TSH Urine Color Urine Appearance Urine pH Ur Specific [place] Urine Protein Urine Glucose (UA) Urine Ketones Urine Blood Urine RBC (Auto) 08/01/19 08/02/19 08/02/19 17:31 04:39 04:39 WBC 21.3 H RBC 4.05 L Hgb 10.7 L Hct 32.6 L MCV 81 MCH 26.4 L MCHC 32.7 RDW 14.7 H Plt Count 222 Seg Neutrophils % VBG pH VBG pCO2 VBG HCO3 VBG Base Excess Sodium 136.8 L Potassium 3.6 Chloride 103 Carbon Dioxide 25 Anion Gap 9 BUN 30 H Creatinine 1.78 H Est GFR ( Amer) 45 L Glucose 116 H Calcium 8.6 Magnesium 1.8 Total Bilirubin AST Alkaline Phosphatase Total Protein Albumin Triglycerides 106 Cholesterol 143.74 LDL Cholesterol Direct 95 VLDL Cholesterol 21.0 HDL Cholesterol 29 L TSH Urine Color YELLOW Urine Appearance CLOUDY Urine pH 5.0 Ur Specific [place] 1.017 Urine Protein >=500 H Urine Glucose (UA) 50 H Urine Ketones NEGATIVE Urine Blood SMALL H Urine RBC (Auto) 10 08/02/19 04:39 WBC RBC Hgb Hct MCV MCH MCHC RDW Plt Count Seg Neutrophils % VBG pH VBG pCO2 VBG HCO3 VBG Base Excess Sodium Potassium Chloride Carbon Dioxide Anion Gap BUN Creatinine Est GFR ( Amer) Glucose Calcium Magnesium Total Bilirubin AST Alkaline Phosphatase Total Protein Albumin Triglycerides Cholesterol LDL Cholesterol Direct VLDL Cholesterol HDL Cholesterol TSH 2.91 Urine Color Urine Appearance Urine pH Ur Specific [place] Urine Protein Urine Glucose (UA) Urine Ketones Urine Blood Urine RBC (Auto) 08/01/19 08/01/19 16:33 16:33 Troponin I 0.138 NT-Pro-B Natriuret Pep 7510 H Impressions: Chest X-Ray 08/01/19 16:02 IMPRESSION: NO ACUTE RADIOGRAPHIC FINDING IN THE CHEST. Head CT 08/01/19 16:02 IMPRESSION: MICROVASCULAR ISCHEMIA AND GENERALIZED ATROPHY. NO ACUTE IMAGING FINDINGS IN THE BRAIN EVIDENCE OF ACUTE STROKE: NO. Abdomen/Pelvis CT 08/01/19 16:29 IMPRESSION: Descending/sigmoid colon diverticulosis without evidence of acute diverticulitis. No acute intra-abdominal findings. Assessment and Plan - Diagnosis (1) UTI (urinary tract infection) Qualifiers: Urinary tract infection type: site unspecified Hematuria presence: without hematuria Qualified Code(s): N39.0 - Urinary tract infection, site not specified Is this a current diagnosis for this admission?: Yes Plan: 08/02/2019-continue Rocephin until cultures return. (2) BPH (benign prostatic hyperplasia) Qualifiers: Lower urinary tract symptom presence: unspecified whether lower urinary tract symptoms present Qualified Code(s): N40.0 - Benign prostatic hyperplasia without lower urinary tract symptoms Is this a current diagnosis for this admission?: Yes Plan: 08/02/2019-stable (3) CKD (chronic kidney disease) stage 3, GFR 30-59 ml/min Is this a current diagnosis for this admission?: Yes Plan: 08/02/2019-stable (4) Chronic diastolic congestive heart failure Is this a current diagnosis for this admission?: Yes Plan: 08/02/2019-not in acute exacerbation. Continue to follow (5) Chronic obstructive pulmonary disease Qualifiers: COPD type: unspecified COPD Qualified Code(s): J44.9 - Chronic obstructive pulmonary disease, unspecified Is this a current diagnosis for this admission?: Yes Plan: 08/02/2019-not in acute exacerbation continue to follow (6) Encephalopathy Is this a current diagnosis for this admission?: Yes Plan: 08/02/2019-resolved stable (7) Hypertension Qualifiers: Hypertension type: essential hypertension Qualified Code(s): I10 - Essential (primary) hypertension Is this a current diagnosis for this admission?: Yes Plan: 08/02/2019-stable (8) Obesity (BMI 30-39.9) Is this a current diagnosis for this admission?: Yes Plan: 08/02/2019-continue to educate about dietary modification (9) SIRS (systemic inflammatory response syndrome) Is this a current diagnosis for this admission?: Yes Plan: 08/02/2019-resolved stable - Plan Summary Summary: Patient is admitted to the medical service where he will receive the usual supportive and traumatic cares. He will be treated with IV antibiotics utilizing Rocephin initially pending urine and blood culture results. His serum lactic acid will be followed serially and his vital signs will be observed closely as well his mental status as part of the evaluation of possible sepsis. His antihypertensive and congestive heart failure medications will be adjusted to try to improve compliance as he will not take Lasix because it makes him pee too much. He will receive morphine sulfate 2 to 4 mg IV every 2 hours on an as- needed basis for pain utilizing a sliding scale. He will receive Tylenol 650 mg orally every 4 hours as needed for control of fever. He will be continued on his other usual medications as appropriate once his medication list has been verified. Dietary consultation will be obtained for weight loss and appropriate treatment of congestive heart failure. An echocardiogram will be obtained. A CBC, metabolic profile and magnesium level will be followed as part of his ongoing management. - Time Time Spent with patient: 15-24 minutes - Inpatient Certification Based on my medical assessment, after consideration of the patient's comorbidities, presenting symptoms, or acuity I expect that the services needed warrant INPATIENT care.: Yes I certify that my determination is in accordance with my understanding of Medicare's requirements for reasonable and necessary INPATIENT services [42 CFR 412.3e].: Yes Medical Necessity: Need for IV Antibiotics
[2019-08-02] MEDS ORDERED: LOSARTAN POTASSIUM 50 MG TABLET PO SCH (10:00)
[2019-08-02] MEDS ORDERED: TORSEMIDE 20 MG TABLET PO SCH (10:00)
[2019-08-02] MEDS ORDERED: METOPROLOL SUCCINATE 50 MG TAB.SR.24H PO SCH (10:00)
[2019-08-02] MEDS: LOSARTAN POTASSIUM 50 MG TABLET PO SCH (10:14)
[2019-08-02] MEDS: METOPROLOL SUCCINATE 50 MG TAB.SR.24H PO SCH (10:14)
[2019-08-02] MEDS: DOCUSATE SODIUM 100 MG CAPSULE PO SCH ×2 (10:15→17:22)
[2019-08-02] MEDS: SPIRONOLACTONE 25 MG TABLET PO SCH (10:15)
[2019-08-02] MEDS: TORSEMIDE 20 MG TABLET PO SCH (12:47)
[2019-08-02] MEDS: CEFTRIAXONE 1 GM/D5W RTU 1 GM/50 ML RTUPB IV SCH (12:48)
[2019-08-02 20:02] LABS: C DIFFICILE GDH NEGATIVE (NEGATIVE)
[2019-08-02] MEDS: MONTELUKAST SODIUM 10 MG TABLET PO SCH (23:29)
[2019-08-02] MEDS: DOXAZOSIN MESYLATE 1 MG TABLET PO SCH (23:37)
[2019-08-03] MEDS: IPRATROPIUM BROMIDE 0.02% NEB 0.5 MG/2.5 ML AMPUL NEB SCH ×3 (01:13→17:01)
[2019-08-03] MEDS: LEVALBUTEROL HCL NEB 1.25 MG/3 ML AMPUL NEB SCH ×3 (01:13→17:01)
[2019-08-03] MEDS: PANTOPRAZOLE SODIUM 40 MG TABLET.DR PO SCH ×2 (05:06→18:43)
[2019-08-03] MEDS: HEPARIN SOD (PORCINE) 5,000 UNIT/ML 1 ML VIAL SUBCUT SCH ×3 (05:13→21:51)
[2019-08-03 06:04] LABS: HEMATOCRIT 31.2 % (37.9-51.0); HEMOGLOBIN 10.3 g/dL (13.5-17.0); MEAN CORPUSCULAR HEMOGLOBIN 26.5 pg (27.0-33.4); MEAN CORPUSCULAR VOLUME 80 fl (80-97); PLATELET COUNT 209 10^3/uL (150-450); RED BLOOD COUNT 3.89 10^6/uL (4.35-5.55); RED CELL DISTRIBUTION WIDTH 14.8 % (11.5-14.0); WHITE BLOOD COUNT 12.8 10^3/uL (4.0-10.5)
[2019-08-03] MEDS: BUDESONIDE NEB 0.5 MG/2 ML AMPUL NEB SCH ×2 (07:55→21:39)
[2019-08-03] MEDS: SPIRONOLACTONE 25 MG TABLET PO SCH (09:28)
[2019-08-03] MEDS: METOPROLOL SUCCINATE 50 MG TAB.SR.24H PO SCH (09:29)
[2019-08-03] MEDS: LOSARTAN POTASSIUM 50 MG TABLET PO SCH (09:29)
[2019-08-03] MEDS: TORSEMIDE 20 MG TABLET PO SCH (09:30)
[2019-08-03] MEDS: DOCUSATE SODIUM 100 MG CAPSULE PO SCH ×2 (09:31→18:40)
[2019-08-03 11:27] LABS: ANION GAP 9 (5-19); BLOOD UREA NITROGEN 39 mg/dL (7-20); CALCIUM 8.5 mg/dL (8.4-10.2); CARBON DIOXIDE 24 mmol/L (22-30); CHLORIDE 105 mmol/L (98-107); GLUCOSE 94 mg/dL (75-110); POTASSIUM 3.5 mmol/L (3.6-5.0)
[2019-08-03] MEDS: NORMAL SALINE 1000 ML 1,000 ML IV PRN (12:35)
[2019-08-03] MEDS: CEFTRIAXONE 1 GM/D5W RTU 1 GM/50 ML RTUPB IV SCH (12:36)
--- NOTE | 2019-08-03 12:37 | XCELERA REPORT ---
[address] [address] Transthoracic Echocardiogram Report Name: JANEY WILSON Age: 78 yrs Gender: Male : 1940 Patient Status: Inpatient Patient Location: [address] [place], [place] [address] Study Date: 08/02/2019 05:07 PM Height: 71 in Weight: 272 lb BSA: 2.4 m2 Procedure: A two-dimensional transthoracic echocardiogram with color flow and Doppler was performed. The study was technically difficult with many images being suboptimal in quality. Study Quality: Poor. Reason For Study: CHF History: CHF. Ordering Physician: LIANE SCHWARZ Performed By: Monie Ridley Interpretation Summary The left ventricle is normal in size. There is normal left ventricular wall thickness. LV EF is 60% Left ventricular systolic function is normal. Doppler measurements suggest impaired left ventricular relaxation, which is associated with grade I/IV or mild diastolic dysfunction The left ventricular wall motion is normal. There is no thrombus. Cannot assess ASD ,VSD ,or PFO. The right ventricle is not well visualized secondary to technical limitations The right atrium is normal. The left atrium is moderately dilated. There is no vegetation seen on the mitral valve. There is no mitral valve stenosis. There is a mild amount of mitral regurgitation There is no aortic valvular vegetation. There is moderate aortic stenosis There is a peak gradient of 46 mm of Hg , and mean gradient of 28.4 mm of Hg. There is no tricuspid stenosis. Tricuspid regurgitation jet envelope not well defined to measure RV systolic pressure accurately. There is no pulmonic valvular stenosis. There is a trace amount of pulmonic regurgitation The aortic root is not well visualized but is probably normal size. The inferior vena cava appeared normal and decreased > 50% with respiration (RAP 5-10 mmHg) There is no pericardial effusion. MMode/2D Measurements & Calculations IVSd: 1.1 cm LVIDd: 6.5 cm FS: 33.6 % Ao root diam: 3.2 cm LVIDs: 4.3 cm EDV(Teich): 219.0 ml Ao root area: 8.0 cm2 LVPWd: 1.2 cm ESV(Teich): 85.1 ml EF(Teich): 61.1 % LVOT diam: 1.8 cm LVOT area: 2.4 cm2 Doppler Measurements & Calculations MV E max julian: MV dec slope: Ao V2 max: AI max julian: 92.4 cm/sec 419.3 cm/sec2 339.0 cm/sec 319.6 cm/sec MV A max julian: MV dec time: Ao max PG: AI max P.9 mmHg 122.2 cm/sec 0.22 sec 46.1 mmHg AI dec slope: MV E/A: 0.76 Ao V2 mean: 261.0 cm/sec2 251.9 cm/sec AI P1/2t: 358.6 msec Ao mean P.4 mmHg Ao V2 VTI: 69.4 cm TOMMY(V,D): 0.77 cm2 LV V1 max PG: PA V2 max: 4.6 mmHg 106.2 cm/sec LV V1 max: PA max P.5 mmHg 107.4 cm/sec Left Ventricle The left ventricle is normal in size. There is normal left ventricular wall thickness. LV EF is 60%. Left ventricular systolic function is normal. Doppler measurements suggest impaired left ventricular relaxation, which is associated with grade I/IV or mild diastolic dysfunction. The left ventricular wall motion is normal. There is no thrombus. Cannot assess ASD ,VSD ,or PFO. Right Ventricle The right ventricle is not well visualized secondary to technical limitations. Atria The right atrium is normal. Right atrium not well visualized secondary to technical limitations. The left atrium is moderately dilated. Mitral Valve There is no evidence of mitral valve prolapse. There is no vegetation seen on the mitral valve. There is no mitral valve stenosis. There is a mild amount of mitral regurgitation. Aortic Valve There is no aortic valvular vegetation. There is moderate aortic stenosis. There is a peak gradient of 46 mm of Hg , and mean gradient of 28.4 mm of Hg. There is a trace amount of aortic regurgitation. Tricuspid Valve There is no tricuspid stenosis. There is a trace amount of tricuspid regurgitation. Tricuspid regurgitation jet envelope not well defined to measure RV systolic pressure accurately. Pulmonic Valve There is no pulmonic valvular stenosis. There is a trace amount of pulmonic regurgitation. Great Vessels The aortic root is not well visualized but is probably normal size. The inferior vena cava appeared normal and decreased > 50% with respiration (RAP 5-10 mmHg). Effusions There is no pericardial effusion. : LIANE SCHWARZ Lakshmi
--- NOTE | 2019-08-03 18:49 | PDOC PROGRESS REPORT ---
Subjective Progress Note for:: 08/03/19 Subjective:: This is a 78-year-old male who was admitted for sepsis secondary to urinary tract infection. We will start an IV antibiotics. He did significantly improve. No acute event overnight. Upon encounter this morning, patient reports he feels well. Denies chest pain or shortness of breath. He says that he feels like he is at his baseline. His creatinine however has been trending up since admission. Will start him on IV fluids and repeat BMP tomorrow. Hold Aldactone and torsemide (not home meds-started on this admission) today. Reason For Visit: SIRS, URINARY TRACT INFECTION, CHRONIC KIDNEY Physical Exam Vital Signs: Temp Pulse Resp BP Pulse Ox 98.3 F 72 16 153/88 H 98 08/03/19 13:00 08/03/19 13:00 08/03/19 13:00 08/03/19 13:00 08/03/19 13:00 Intake & Output 08/02/19 08/03/19 08/04/19 06:59 06:59 06:59 Intake Total 50 1230 260 Balance 50 1230 260 Weight 266 lb 8.622 oz 263 lb 14.293 oz General appearance: PRESENT: no acute distress, well-developed, well-nourished Head exam: PRESENT: atraumatic, normocephalic Eye exam: PRESENT: conjunctiva pink, EOMI, PERRLA. ABSENT: scleral icterus Ear exam: PRESENT: normal external ear exam Mouth exam: PRESENT: moist, tongue midline Neck exam: ABSENT: carotid bruit, JVD, lymphadenopathy, thyromegaly Respiratory exam: PRESENT: clear to auscultation eddi. ABSENT: rales, rhonchi, wheezes Cardiovascular exam: PRESENT: RRR. ABSENT: diastolic murmur, rubs, systolic murmur Pulses: PRESENT: normal dorsalis pedis pul GI/Abdominal exam: PRESENT: normal bowel sounds, soft. ABSENT: distended, guarding, mass, organolmegaly, rebound, tenderness Rectal exam: PRESENT: deferred Extremities exam: PRESENT: full ROM. ABSENT: calf tenderness, clubbing, pedal edema Neurological exam: PRESENT: alert, awake, oriented to person, oriented to place, oriented to time, oriented to situation, CN II-XII grossly intact. ABSENT: motor sensory deficit Results Laboratory Results: 08/03/19 05:43 08/03/19 05:43 08/03/19 08/03/19 08/03/19 05:43 05:43 05:43 WBC 12.8 H RBC 3.89 L Hgb 10.3 L Hct 31.2 L MCV 80 MCH 26.5 L MCHC 33.0 RDW 14.8 H Plt Count 209 Sodium 137.6 Potassium 3.5 L Chloride 105 Carbon Dioxide 24 Anion Gap 9 BUN 39 H Creatinine 1.94 H Est GFR ( Amer) 41 L Glucose 94 Calcium 8.5 Magnesium 2.2 08/01/19 17:31 Clean Catch Midstream Urine Culture - Final Proteus Mirabilis 08/01/19 08/01/19 16:33 16:33 Troponin I 0.138 NT-Pro-B Natriuret Pep 7510 H Impressions: Chest X-Ray 08/01/19 16:02 IMPRESSION: NO ACUTE RADIOGRAPHIC FINDING IN THE CHEST. Head CT 08/01/19 16:02 IMPRESSION: MICROVASCULAR ISCHEMIA AND GENERALIZED ATROPHY. NO ACUTE IMAGING FINDINGS IN THE BRAIN EVIDENCE OF ACUTE STROKE: NO. Abdomen/Pelvis CT 08/01/19 16:29 IMPRESSION: Descending/sigmoid colon diverticulosis without evidence of acute diverticulitis. No acute intra-abdominal findings. Assessment and Plan - Diagnosis (1) Acute renal failure Is this a current diagnosis for this admission?: Yes Plan: Start patient on IV fluids. Repeat BMP tomorrow. (2) UTI (urinary tract infection) Qualifiers: Urinary tract infection type: site unspecified Hematuria presence: without hematuria Qualified Code(s): N39.0 - Urinary tract infection, site not spe cified Is this a current diagnosis for this admission?: Yes Plan: urine culture grew Proteus. Continue Rocephin. (3) Elevated troponin Is this a current diagnosis for this admission?: Yes - Time Time Spent with patient: 25-34 minutes
[2019-08-03] MEDS: DOXAZOSIN MESYLATE 1 MG TABLET PO SCH (21:52)
[2019-08-03] MEDS: MONTELUKAST SODIUM 10 MG TABLET PO SCH (21:52)
[2019-08-04] MEDS: IPRATROPIUM BROMIDE 0.02% NEB 0.5 MG/2.5 ML AMPUL NEB SCH ×2 (01:02→08:36)
[2019-08-04] MEDS: LEVALBUTEROL HCL NEB 1.25 MG/3 ML AMPUL NEB SCH ×2 (01:02→08:36)
[2019-08-04] MEDS: NORMAL SALINE 1000 ML 1,000 ML IV PRN (01:30)
[2019-08-04 05:33] LABS: HEMATOCRIT 31.1 % (37.9-51.0); HEMOGLOBIN 10.2 g/dL (13.5-17.0); MEAN CORPUSCULAR HEMOGLOBIN 26.7 pg (27.0-33.4); MEAN CORPUSCULAR VOLUME 81 fl (80-97); PLATELET COUNT 218 10^3/uL (150-450); RED BLOOD COUNT 3.84 10^6/uL (4.35-5.55); RED CELL DISTRIBUTION WIDTH 14.9 % (11.5-14.0); WHITE BLOOD COUNT 8.8 10^3/uL (4.0-10.5)
[2019-08-04] MEDS: HEPARIN SOD (PORCINE) 5,000 UNIT/ML 1 ML VIAL SUBCUT SCH ×2 (05:52→15:20)
[2019-08-04] MEDS: PANTOPRAZOLE SODIUM 40 MG TABLET.DR PO SCH (05:53)
[2019-08-04 05:55] LABS: ANION GAP 10 (5-19); BLOOD UREA NITROGEN 42 mg/dL (7-20); CALCIUM 8.4 mg/dL (8.4-10.2); CARBON DIOXIDE 23 mmol/L (22-30); CHLORIDE 107 mmol/L (98-107); GLUCOSE 103 mg/dL (75-110); POTASSIUM 3.7 mmol/L (3.6-5.0)
[2019-08-04] MEDS: BUDESONIDE NEB 0.5 MG/2 ML AMPUL NEB SCH (08:36)
[2019-08-04] MEDS: LOSARTAN POTASSIUM 50 MG TABLET PO SCH (09:34)
[2019-08-04] MEDS: METOPROLOL SUCCINATE 50 MG TAB.SR.24H PO SCH (09:34)
[2019-08-04] MEDS: DOCUSATE SODIUM 100 MG CAPSULE PO SCH (09:53)
[2019-08-04 13:32] VITALS: BP 145/64
[2019-08-04] MEDS: CEFTRIAXONE 1 GM/D5W RTU 1 GM/50 ML RTUPB IV SCH (15:51)
--- NOTE | 2019-08-07 17:20 | PDOC DISCHARGE SUMMARY ---
Impression - Admit/DC Date/PCP Admission Date/Primary Care Provider: 08/01/19 20:30 KENYON ALVARENGA MD Discharge Date: 08/04/19 - Discharge Diagnosis (1) Acute renal failure Is this a current diagnosis for this admission?: Yes (2) UTI (urinary tract infection) Is this a current diagnosis for this admission?: Yes (3) Elevated troponin Is this a current diagnosis for this admission?: Yes - Additional Information Resuscitation Status: Full Code Referrals: KENYON ALVARENGA MD [Primary Care Provider] - 08/10/19 2:45 pm Prescriptions: Amoxicillin/Potassium Clav [Augmentin 500-125 Tablet] 1 each PO Q12 5 Days #10 tablet Metoprolol Succinate [Toprol Xl 50 mg Tab.sr] 50 mg PO DAILY #30 tab.sr.24h Home Medications: Albuterol Sulfate [Proair HFA Inhalation Aerosol 8.5 gm MDI] 1 puff IH Q4HP PRN 08/02/19 Albuterol Sulfate [Ventolin 0.083% Neb 2.5 mg/3 mL Ampul] 2.5 mg NEB RTBID 08/02/19 Budesonide [Pulmicort Neb 0.5 mg/2 ml Ampul] 0.5 mg NEB RTQ12 08/02/19 Hydralazine HCl [Apresoline 50 mg Tablet] 50 mg PO BID 08/02/19 Lisinopril [Prinivil 40 mg Tablet] 40 mg PO DAILY 08/02/19 Montelukast Sodium [Singulair 10 mg Tablet] 10 mg PO DAILY 08/02/19 Amoxicillin/Potassium Clav [Augmentin 500-125 Tablet] 1 each PO Q12 5 Days #10 tablet 08/03/19 Metoprolol Succinate [Toprol Xl 50 mg Tab.sr] 50 mg PO DAILY #30 tab.sr.24h 08/03/19 History of Present Illiness History of Present Illness: Admitting hospitalist's H&P: JANEY WILSON is a 78 year old male who presented to the emergency room via EMS with a 1 day history of altered mental status. Patient was noted by his family to demonstrate mental confusion with slurring of his speech and an off-balance gait beginning on the evening of 07/31/2019. The patient states that he developed a subjective fever and malaise accompanied by decreased oral intake and urinary incontinence. He also developed the associated symptoms of nausea, dry heaves and moderate constant pressure discomfort in his left lower abdomen. He denies other associated or accompanying signs and symptoms. He admits similar prior episodes when he has experienced urinary tract infections. His altered mental status rapidly resolved when he was given Tylenol for his fever and IV fluids were initiated by EMS. He has not identified any additional aggravating or ameliorating factors for his altered mental status. In the emerg ency room he was found to have an elevated temperature at 101.1 F with a white blood count of 23,100 and a normal serum lactic acid. A urine specimen revealed marked pyuria. Patient was subsequently treated with IV Rocephin in the emergency room and admitted to the hospital for further evaluation and treatment. Hospital Course Hospital Course: This is a 78-year-old male who was admitted for sepsis secondary to urinary tract infection. He was started on IV antibiotics. He did significantly improve. Urine culture grew Proteus. He did also have an BO and was started on IV fluids. His creatinine did trend up and plateaued. Nephrology was consulted. However patient was not able to wait for nephrology evaluation and insisted on going home AGAINST MEDICAL ADVICE. 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 Physical Exam Vital Signs: Temp Pulse Resp BP Pulse Ox 97.5 F 68 14 145/64 H 92 08/04/19 12:00 08/04/19 12:00 08/04/19 12:00 08/04/19 12:00 08/04/19 12:00 Intake & Output 08/03/19 08/04/19 08/05/19 06:59 06:59 06:59 Intake Total 1230 2409 240 Balance 1230 2409 240 Weight 263 lb 14.293 oz 265 lb 6.985 oz General appearance: PRESENT: no acute distress, well-developed, well-nourished Head exam: PRESENT: atraumatic, normocephalic Eye exam: PRESENT: conjunctiva pink, EOMI, PERRLA. ABSENT: scleral icterus Ear exam: PRESENT: normal external ear exam Mouth exam: PRESENT: moist, tongue midline Neck exam: ABSENT: carotid bruit, JVD, lymphadenopathy, thyromegaly Respiratory exam: PRESENT: clear to auscultation eddi. ABSENT: rales, rhonchi, wheezes Cardiovascular exam: PRESENT: RRR. ABSENT: diastolic murmur, rubs, systolic murmur Pulses: PRESENT: normal dorsalis pedis pul GI/Abdominal exam: PRESENT: normal bowel sounds, soft. ABSENT: distended, guarding, mass, organolmegaly, rebound, tenderness Rectal exam: PRESENT: deferred Extremities exam: PRESENT: full ROM. ABSENT: calf tenderness, clubbing, pedal edema Neurological exam: PRESENT: alert, awake, oriented to person, oriented to place, oriented to time, oriented to situation, CN II-XII grossly intact. ABSENT: motor sensory deficit Results Laboratory Results: WBC 8.8 10^3/uL (4.0-10.5) 08/04/19 04:59 RBC 3.84 10^6/uL (4.35-5.55) L 08/04/19 04:59 Hgb 10.2 g/dL (13.5-17.0) L 08/04/19 04:59 Hct 31.1 % (37.9-51.0) L 08/04/19 04:59 MCV 81 fl (80-97) 08/04/19 04:59 MCH 26.7 pg (27.0-33.4) L 08/04/19 04:59 MCHC 33.0 g/dL (32.0-36.0) 08/04/19 04:59 RDW 14.9 % (11.5-14.0) H 08/04/19 04:59 Plt Count 218 10^3/uL (150-450) 08/04/19 04:59 Lymph % (Auto) Not Reportable 08/01/19 16:33 Metcalfe % (Auto) Not Reportable 08/01/19 16:33 Eos % (Auto) Not Reportable 08/01/19 16:33 Baso % (Auto) Not Reportable 08/01/19 16:33 Absolute Neuts (auto) Not Reportable 08/01/19 16:33 Absolute Lymphs (auto) Not Reportable 08/01/19 16:33 Absolute Monos (auto) Not Reportable 08/01/19 16:33 Absolute Eos (auto) Not Reportable 08/01/19 16:33 Absolute Basos (auto) Not Reportable 08/01/19 16:33 Total Counted 100 08/01/19 16:33 Seg Neutrophils % Not Reportable 08/01/19 16:33 Seg Neuts % (Manual) 84 % (42-78) H 08/01/19 16:33 Lymphocytes % (Manual) 3 % (13-45) L 08/01/19 16:33 Atypical Lymphs % 1 % (0) 08/01/19 16:33 Monocytes % (Manual) 11 % (3-13) 08/01/19 16:33 Eosinophils % (Manual) 0 % (0-6) 08/01/19 16:33 Basophils % (Manual) 1 % (0-2) 08/01/19 16:33 Abs Neuts (Manual) 19.4 10^3/uL (1.7-8.2) H 08/01/19 16:33 Abs Lymphs (Manual) 0.9 10^3/uL (0.5-4.7) 08/01/19 16:33 Abs Monocytes (Manual) 2.5 10^3/uL (0.1-1.4) H 08/01/19 16:33 Absolute Eos (Manual) 0.0 10^3/uL (0.0-0.6) 08/01/19 16:33 Abs Basophils (Manual) 0.2 10^3/uL (0.0-0.2) 08/01/19 16:33 Platelet Comment ADEQUATE 08/01/19 16:33 Polychromasia SLIGHT 08/01/19 16:33 Anisocytosis SLIGHT 08/01/19 16:33 PT 14.7 SEC (11.4-15.4) 08/01/19 16:33 INR 1.14 08/01/19 16:33 APTT 34.9 SEC (23.5-35.8) 08/01/19 16:33 VBG pH 7.44 (7.30-7.42) H 08/01/19 16:33 VBG pCO2 34.7 mmHg (35-63) L 08/01/19 16:33 VBG HCO3 22.8 mmol/L (20-32) 08/01/19 16:33 VBG Base Excess -0.9 mmol/L 08/01/19 16:33 Sodium 140.0 mmol/L (137-145) 08/04/19 04:59 Potassium 3.7 mmol/L (3.6-5.0) 08/04/19 04:59 Chloride 107 mmol/L (98-107) 08/04/19 04:59 Carbon Dioxide 23 mmol/L (22-30) 08/04/19 04:59 Anion Gap 10 (5-19) 08/04/19 04:59 BUN 42 mg/dL (7-20) H 08/04/19 04:59 Creatinine 2.00 mg/dL (0.52-1.25) H 08/04/19 04:59 Est GFR ( Amer) 39 (>60) L 08/04/19 04:59 Est GFR (MDRD) Non-Af 32 (>60) L 08/04/19 04:59 Glucose 103 mg/dL (75-110) 08/04/19 04:59 Lactic Acid (Sepsis) 1.4 mmol/L (0.7-2.1) 08/01/19 16:33 Calcium 8.4 mg/dL (8.4-10.2) 08/04/19 04:59 Magnesium 2.3 mg/dL (1.6-2.3) 08/04/19 04:59 Total Bilirubin 1.4 mg/dL (0.2-1.3) H 08/01/19 16:33 Direct Bilirubin 0.0 mg/dL (0.0-0.4) 08/01/19 16:33 Neonat Total Bilirubin Not Reportable 08/01/19 16:33 Neonat Direct Bilirubin Not Reportable 08/01/19 16:33 Neonat Indirect Bili Not Reportable 08/01/19 16:33 AST 15 U/L (17-59) L 08/01/19 16:33 ALT 12 U/L (<50) 08/01/19 16:33 Alkaline Phosphatase 77 U/L (38-126) 08/01/19 16:33 Troponin I 0.138 ng/mL 08/01/19 16:33 NT-Pro-B Natriuret Pep 7510 pg/mL (<450) H 08/01/19 16:33 Total Protein 6.4 g/dL (6.3-8.2) 08/01/19 16:33 Albumin 3.5 g/dL (3.5-5.0) 08/01/19 16:33 Triglycerides 106 mg/dL (<150) 08/02/19 04:39 Cholesterol 143.74 mg/dL (0-200) 08/02/19 04:39 LDL Cholesterol Direct 95 mg/dL (<100) 08/02/19 04:39 VLDL Cholesterol 21.0 mg/dL (10-31) 08/02/19 04:39 HDL Cholesterol 29 mg/dL (>40) L 08/02/19 04:39 TSH 2.91 uIU/mL (0.47-4.68) 08/02/19 04:39 Urine Color YELLOW 08/01/19 17:31 Urine Appearance CLOUDY 08/01/19 17:31 Urine pH 5.0 (5.0-9.0) 08/01/19 17:31 Ur Specific [place] 1.017 08/01/19 17:31 Urine Protein >=500 mg/dL (NEGATIVE) H 08/01/19 17:31 Urine Glucose (UA) 50 mg/dL (NEGATIVE) H 08/01/19 17:31 Urine Ketones NEGATIVE mg/dL (NEGATIVE) 08/01/19 17:31 Urine Blood SMALL (NEGATIVE) H 08/01/19 17:31 Urine Nitrite (Reflex) NEGATIVE (NEGATIVE) 08/01/19 17:31 Urine Bilirubin NEGATIVE (NEGATIVE) 08/01/19 17:31 Urine Urobilinogen NEGATIVE mg/dL (<2.0) 08/01/19 17:31 Leukocyte Esterase Rfl LARGE (NEGATIVE) H 08/01/19 17:31 Urine RBC (Auto) 10 /HPF 08/01/19 17:31 Urine WBC (Reflex) > 182 /HPF 08/01/19 17:31 Squamous Epi Cells Auto 2 /HPF 08/01/19 17:31 Urine Mucus (Auto) RARE /LPF 08/01/19 17:31 Urine Ascorbic Acid NEGATIVE (NEGATIVE) 08/01/19 17:31 Stl C. Difficile GDH Ag NEGATIVE (NEGATIVE) 08/02/19 17:50 Stl C.difficile Tox A&B NEGATIVE (NEGATIVE) 08/02/19 17:50 08/01/19 08/01/19 16:33 16:33 Troponin I 0.138 NT-Pro-B Natriuret Pep 7510 H Impressions: Chest X-Ray 08/01/19 16:02 IMPRESSION: NO ACUTE RADIOGRAPHIC FINDING IN THE CHEST. Head CT 08/01/19 16:02 IMPRESSION: MICROVASCULAR ISCHEMIA AND GENERALIZED ATROPHY. NO ACUTE IMAGING FINDINGS IN THE BRAIN EVIDENCE OF ACUTE STROKE: NO. Abdomen/Pelvis CT 08/01/19 16:29 IMPRESSION: Descending/sigmoid colon diverticulosis without evidence of acute diverticulitis. No acute intra-abdominal findings. Stroke Is this a Stroke Patient?: No Acute Heart Failure - Is this a Heart Failure Patient?: No
== END 2019-08-04 16:05 | disposition left against medical advice (07) | DRG 872 ==
LOC: ER 15:53 → EH 20:30 → 4S 21:29
PROVIDERS: ADMIT Emergency Medicine; ATTEND Emergency Medicine
DX: A41.9 Sepsis, unspecified organism (principal); N39.0 Urinary tract infection, site not specified; N17.9 Acute kidney failure, unspecified; G93.40 Encephalopathy, unspecified; I50.32 Chronic diastolic (congestive) heart failure; I13.0 Hypertensive heart and chronic kidney disease with heart failure and stage 1 through stage 4 chronic kidney disease, or unspecified chronic kidney disease; I11.0 Hypertensive heart disease with heart failure; J44.9 Chronic obstructive pulmonary disease, unspecified; E66.9 Obesity, unspecified; N18.3 Chronic kidney disease, stage 3 (moderate); K21.9 Gastro-esophageal reflux disease without esophagitis; N40.0 Benign prostatic hyperplasia without lower urinary tract symptoms; M19.90 Unspecified osteoarthritis, unspecified site; Z90.49 Acquired absence of other specified parts of digestive tract; Z83.3 Family history of diabetes mellitus; Z82.49 Family history of ischemic heart disease and other diseases of the circulatory system; Z79.899 Other long term (current) drug therapy; Z87.891 Personal history of nicotine dependence; Z68.33 Body mass index [BMI] 33.0-33.9, adult
CPT/HCPCS: 36415; 70450; 71046; 74177; 80048; 80053; 80061; 81001; 82803; 83605; 83735; 83880; 84443; 84484; 85025; 85027; 85610; 85730; 87040; 87086; 87088; 87186; 87324; 87449; 93005; 93010; 93306; 94640; 96365; 99285; J0696; J1644; J3490; J7030

== ENCOUNTER 2020-04-14 18:26 | Inpatient (IN) | payer MEDICARE, OTHER ==
[2020-04-14 19:23] LABS: VENOUS BLOOD BASE EXCESS -3.3 mmol/L; VENOUS BLOOD HCO3 21.5 mmol/L (20-32); VENOUS BLOOD PCO2 37.9 mmHg (35-63); VENOUS BLOOD PH 7.37 (7.30-7.42)
[2020-04-14 19:27] LABS: INTERNATIONAL RATION (INR) 1.21; PROTHROMBIN TIME 15.5 SEC (11.4-15.4)
[2020-04-14 19:30] LABS: ALBUMIN 3.5 g/dL (3.5-5.0); ALKALINE PHOSPHATASE 74 U/L (38-126); ANION GAP 8 (5-19); ASPARTATE AMINO TRANSFERASE 19 U/L (17-59); BILIRUBIN,DIRECT 0.1 mg/dL (0.0-0.4); BILIRUBIN,TOTAL 1.3 mg/dL (0.2-1.3); BLOOD UREA NITROGEN 27 mg/dL (7-20); CALCIUM 8.8 mg/dL (8.4-10.2); CARBON DIOXIDE 20 mmol/L (22-30); CHLORIDE 108 mmol/L (98-107); GLUCOSE 136 mg/dL (75-110); POTASSIUM 4.4 mmol/L (3.6-5.0); TOTAL PROTEIN 6.3 g/dL (6.3-8.2)
[2020-04-14 19:31] LABS: HEMATOCRIT 31.6 % (37.9-51.0); HEMOGLOBIN 10.1 g/dL (13.5-17.0); MEAN CORPUSCULAR HEMOGLOBIN 25.7 pg (27.0-33.4); MEAN CORPUSCULAR HGB CONC 32.1 g/dL (32.0-36.0); MEAN CORPUSCULAR VOLUME 80 fl (80-97); PLATELET COUNT 185 10^3/uL (150-450); RED BLOOD COUNT 3.94 10^6/uL (4.35-5.55); RED CELL DISTRIBUTION WIDTH 17.5 % (11.5-14.0); WHITE BLOOD COUNT 9.8 10^3/uL (4.0-10.5)
[2020-04-14 19:51] LABS: ABSOLUTE LYMPHOCYTES# (MANUAL) 0.3 10^3/uL (0.5-4.7); ABSOLUTE MONOCYTES # (MANUAL) 1.1 10^3/uL (0.1-1.4); BASOPHILS % (MANUAL) 0 % (0-2); EOSINOPHILS % (MANUAL) 2 % (0-6); LYMPHOCYTES % (MANUAL) 3 % (13-45); MONOCYTES % (MANUAL) 11 % (3-13); SEGMENTED NEUTROPHILS % (MAN) 84 % (42-78); TOTAL CELLS COUNTED 100; TOXIC VACUOLATION PRESENT
[2020-04-14 19:52] LABS: ANISOCYTOSIS 2+; PLATELET COMMENT ADEQUATE
[2020-04-14] MEDS ORDERED: ACETAMINOPHEN 325 MG TABLET PO ONE (20:00)
--- NOTE | 2020-04-14 20:00 | ER Document Report ---
ED General - General Chief Complaint: Altered Mental Status Stated Complaint: ALTERED MENTAL STATUS Time Seen by Provider: 04/14/20 19:57 Primary Care Provider: KENYON ALVARENGA MD [Primary Care Provider] - Follow up as needed TRAVEL OUTSIDE OF THE [place] IN LAST 30 DAYS: No - HPI Notes: 79-year-old male presents with altered mental status. Patient is limited historian. He reports he is not feeling well and has no energy. He felt that he had a fever yesterday morning. He has some shortness of breath and relates that he has a history of COPD and wears oxygen at home. He is able to tell me that he recently had stents placed in his heart. He denies abdominal pain, vomiting or diarrhea. We will touch base with son for more information. - Related Data Allergies/Adverse Reactions: No Known Allergies Allergy (Verified 08/01/19 15:58) Past Medical History - Social History Smoking Status: Unknown if Ever Smoked Family History: DM, Hypertension. denies: CAD, Malignancy - Past Medical History Cardiac Medical History: Reports: Hx Congestive Heart Failure, Hx Hypertension Denies: Hx Coronary Artery Disease, Hx Heart Attack Pulmonary Medical History: Reports: Hx COPD Denies: Hx Asthma, Hx Bronchitis, Hx Pneumonia Neurological Medical History: Denies: Hx Cerebrovascular Accident, Hx Seizures Endocrine Medical History: Denies: Hx Diabetes Mellitus Type 1, Hx Diabetes Mellitus Type 2, Hx Hyperthyroidism, Hx Hypothyroidism Renal/ Medical History: Reports: Hx Benign Prostatic Hyperplasia, Hx Kidney Stones, Hx Renal Insufficiency GI Medical History: Reports: Hx Gastroesophageal Reflux Disease. Denies: Hx Cirrhosis, Hx Crohn's Disease, Hx Hepatitis, Hx Ulcerative Colitis Musculoskeletal Medical History: Reports Hx Arthritis, Denies Hx Gout Skin Medical History: Denies Hx Eczema, Denies Hx Psoriasis Psychiatric Medical History: Denies: Hx Depression Infectious Medical History: Denies: Hx Hepatitis Past Surgical History: Reports: Hx Cholecystectomy - Immunizations Hx Diphtheria, Pertussis, Tetanus Vaccination: Yes Hx Pneumococcal Vaccination: 06/01/13 Review of Systems - Review of Systems -: Yes ROS unobtainable due to patient's medical condition Physical Exam - Vital signs Vitals: Temp BP 102.3 F H 96/54 L 04/14/20 18:39 04/14/20 18:39 Interpretation: Febrile - General General appearance: Alert In distress: Mild - HEENT Head: Normocephalic, Atraumatic Extraocular movements intact: Yes Pupils: PERRL - Respiratory Respiratory status: No respiratory distress Breath sounds: Decreased air movement, Rhonchi - Cardiovascular Rhythm: Regular Heart sounds: Normal auscultation Murmur: Yes Normal capillary refill: Yes - Abdominal Inspection: Normal, Obese Distension: No distension Bowel sounds: Normal Tenderness: Nontender - Genitourinary Notes: No erythema or discharge from penis - Back Back: Nontender - Extremities General lower extremity: Edema - Trace - Neurological Neuro grossly intact: Yes Cognition: Confused Notes: Moves all extremities and follows directions - Skin Skin Temperature: Warm Skin irregularity: negative: Rash Course - Re-evaluation Re-evalutation: 7-year-old male here with altered mental status, he is notably febrile. He has some coarse breath sounds, concern for pneumonia. Will obtain chest x-ray. COVID a possibility as well, swab to be collected. Also check urine for urinary tract infection. If no source found then would consider L PE. Will CT head to rule out bleed. 04/14/20 20:15 called son, today after lunch acting like he was "dehydrated", breathing worse when laying down, wouldn't get out of bed. hx UTI, seems similar, incoherent and not orientated. concern for not taking water pill. ankles swollen. 3 stents placed last month. valve replacement surg in may. no known covid exposure 04/14/20 20:53 Chest x-ray with right lower lobe infiltrate, will be covered with Zosyn 04/14/20 21:22 CT head without bleed 04/14/20 21:56 Fever has down trended 04/14/20 22:01 And to check on patient, he is more lucid now and his mental status has improve d. Will give small additional fluid bolus of 500 cc. Using judicious fluid. He received 1 L via EMS. 04/14/20 22:58 04/14/20 23:09 patient has been admitted to hospitalist service. updated son. pt is full code. - Vital Signs Vital signs: Temp Pulse Resp BP Pulse Ox 98.3 F 17 107/53 L 98 04/14/20 21:47 04/14/20 22:01 04/14/20 22:01 04/14/20 22:01 - Laboratory Result Diagrams: 04/14/20 18:40 04/14/20 18:40 Laboratory results interpreted by me: 04/14/20 04/14/20 04/14/20 18:40 18:40 18:40 RBC 3.94 L Hgb 10.1 L Hct 31.6 L MCH 25.7 L RDW 17.5 H Seg Neuts % (Manual) 84 H Lymphocytes % (Manual) 3 L Abs Lymphs (Manual) 0.3 L PT 15.5 H Sodium 135.5 L Chloride 108 H Carbon Dioxide 20 L BUN 27 H Creatinine 1.96 H Est GFR ( Amer) 40 L Est GFR (MDRD) Non-Af 33 L Glucose 136 H - Diagnostic Test Radiology reviewed: Image reviewed, Reports reviewed - EKG Interpretation by Me Additional EKG results interpreted by me: 04/14/20 23:02 EKG as interpreted by me. Sinus rhythm, normal rate. RBBB. Some T wave inversions lateral leads. Discharge - Discharge Clinical Impression: CAP (community acquired pneumonia) Qualifiers: Laterality: right Lung location: lower lobe of lung Qualified Code(s): J18.9 - Pneumonia, unspecified organism Condition: Fair Disposition: ADMITTED INPATIENT Admitting Provider: Fiona (Hospitalist) Unit Admitted: Telemetry Referrals: KENYON ALVARENGA MD [Primary Care Provider] - Follow up as needed
--- NOTE | 2020-04-14 20:46 | RADIOLOGY REPORT (SQ) ---
EXAM DESCRIPTION: XR CHEST 1 VIEW COMPLETED DATE/TME: 04/14/2020 19:59 CLINICAL HISTORY: 79 years, Male, fever COMPARISON: None. NUMBER OF VIEWS: TECHNIQUE: LIMITATIONS: None. FINDINGS: There may be patchy infiltrate at the right lung base, raising the possibility of pneumonia. The lungs are otherwise clear. There is possible emphysema. The heart is top normal to mildly enlarged. Pulmonary vascularity appears normal. There are atherosclerotic changes and tortuosity of the thoracic aorta. There is minimal scarring in the left mid to lower lung. IMPRESSION: Possible right basilar pneumonia. Possible emphysema. copyright 2010 [employer]- All Rights Reserved
--- NOTE | 2020-04-14 20:59 | RADIOLOGY REPORT (SQ) ---
CT HEAD WITHOUT IV CONTRAST HISTORY: Altered mental status. COMPARISON: None. TECHNIQUE: CT scan of the brain was performed without IV contrast. This exam was performed according to our departmental dose-optimization program, which includes automated exposure control, adjustment of the mA and/or kV according to patient size and/or use of iterative reconstruction technique. FINDINGS: There are scattered areas of hypoattenuation within the periventricular white matter, which likely represent chronic microvascular ischemia. No evidence of acute infarction, intracranial hemorrhage, extra-axial fluid collection, or midline shift. No air-fluid levels are seen in the paranasal sinuses to suggest acute sinusitis. No depressed skull fracture. IMPRESSION: 1. No acute intracranial findings. 2. Senescent changes with chronic microvascular ischemia.
[2020-04-14] MEDS ORDERED: PIPERACILLIN/TAZOBACTAM 3.375 GM VIAL IV ONE (21:04)
[2020-04-14] MEDS ORDERED: NORMAL SALINE 500 ML IV ONE (22:02)
[2020-04-14] MEDS ORDERED: AZITHROMYCIN INJ 500 MG VIAL IV ONE (22:44)
[2020-04-14 23:11] LABS: APPEARANCE,URINE SLIGHTLY-CLOUDY; BILIRUBIN,URINE NEGATIVE (NEGATIVE); COLOR,URINE YELLOW; GLUCOSE, URINE NEGATIVE (NEGATIVE); KETONES,URINE NEGATIVE (NEGATIVE); LEUKOCYTE ESTERASE,URINE NEGATIVE (NEGATIVE); NITRITE,URINE NEGATIVE (NEGATIVE); PROTEIN,URINE 100 mg/dL (NEGATIVE); URINE SPECIFIC GRAVITY 1.011; UROBILINOGEN,URINE NEGATIVE mg/dL (<2.0)
[2020-04-14] MEDS ORDERED: ACETAMINOPHEN 325 MG TABLET PO PRN (23:36)
[2020-04-14] MEDS ORDERED: ONDANSETRON HCL INJ/PF 4 MG/2 ML SDV IV PRN (23:36)
--- NOTE | 2020-04-14 23:58 | PDOC H&P ---
History of Present Illness Admission Date/PCP: KENYON ALVARENGA MD History of Present Illness: JANEY WILSON is a 79 year old male with a history of COPD who says he is not on oxygen at home is not a very good historian, he just tells me that he was not feeling very good at home and so his son called EMS and the next thing he knows he is in the hospital. He did have a fever here with a temperature of greater than 102 Fahrenheit. He did not have a leukocytosis but his blood pressure was a little bit low with a systolic in the 90s, but it did respond to fluid. He has chronic kidney disease which is at his baseline. He is not really been having any cough or shortness of breath, but is not very active and so he is not been trying to get up and move around a whole lot. Chest x-ray shows what looks like some baseline pulmonary fibrosis but he also appears to have a right lower lobe pulmonary edema consistent with pneumonia. Past Medical History Cardiac Medical History: Reports: Congestive Heart Failure, Hypertension Denies: Coronary Artery Disease, Myocardial Infarction Pulmonary Medical History: Reports: Chronic Obstructive Pulmonary Disease (COPD) Denies: Asthma, Bronchitis, Pneumonia Neurological Medical History: Denies: Seizures Endocrine Medical History: Denies: Diabetes Mellitus Type 1, Diabetes Mellitus Type 2, Hyperthyroidism, Hypothyroidism GI Medical History: Reports: Gastroesophageal Reflux Disease Denies: Cirrhosis, Crohn's Disease, Hepatitis, Ulcerative Colitis Musculoskeltal Medical History: Reports: Arthritis Denies: Gout Skin Medical History: Denies: Eczema, Psoriasis Psychiatric Medical History: Denies: Depression Hematology: Denies: Anemia, Bleeding Tendencies Past Surgical History Past Surgical History: Reports: Cholecystectomy Social History Smoking Status: Unknown if Ever Smoked Frequency of Alcohol Use: None Hx Recreational Drug Use: No Drugs: None Hx Prescription Drug Abuse: No Family History Family History: DM, Hypertension. denies: CAD, Malignancy Parental Family History Reviewed: Yes Children Family History Reviewed: Yes Sibling(s) Family History Reviewed.: Yes Medication/Allergy Home Medications: Albuterol Sulfate [Proair HFA Inhalation Aerosol 8.5 gm MDI] 1 puff IH Q4HP PRN 08/02/19 Albuterol Sulfate [Ventolin 0.083% Neb 2.5 mg/3 mL Ampul] 2.5 mg NEB RTBID 08/02/19 Budesonide [Pulmicort Neb 0.5 mg/2 ml Ampul] 0.5 mg NEB RTQ12 08/02/19 Hydralazine HCl [Apresoline 50 mg Tablet] 50 mg PO BID 08/02/19 Lisinopril [Prinivil 40 mg Tablet] 40 mg PO DAILY 08/02/19 Montelukast Sodium [Singulair 10 mg Tablet] 10 mg PO DAILY 08/02/19 Amoxicillin/Potassium Clav [Augmentin 500-125 Tablet] 1 each PO Q12 5 Days #10 tablet 08/03/19 Metoprolol Succinate [Toprol Xl 50 mg Tab.sr] 50 mg PO DAILY #30 tab.sr.24h 08/03/19 Allergies/Adverse Reactions: No Known Allergies Allergy (Verified 08/01/19 15:58) Review of Systems All systems: reviewed and no additional remarkable complaints except as stated - All systems were reviewed and were negative except as noted in the HPI Physical Exam Vital Signs: Temp Pulse Resp BP Pulse Ox 98.3 F 64 19 122/56 L 94 04/14/20 21:47 04/14/20 23:19 04/14/20 23:19 04/14/20 23:19 04/14/20 23:19 General appearance: PRESENT: no acute distress, cooperative, disheveled, morbidly obese Head exam: PRESENT: atraumatic, normocephalic, other - Rhinophyma Eye exam: PRESENT: EOMI, PERRLA. ABSENT: conjunctival injection, nystagmus, scleral icterus Ear exam: PRESENT: normal external ear exam Mouth exam: PRESENT: dry mucosa, neck supple Teeth exam: PRESENT: poor dentation Throat exam: ABSENT: post pharyngeal erythema Neck exam: PRESENT: full ROM. ABSENT: carotid bruit, JVD, lymphadenopathy, meningismus, tenderness, thyromegaly Respiratory exam: PRESENT: prolonged expiratory phas, symmetrical, unlabored, wheezes - Very faint bibasilar. ABSENT: accessory muscle use, chest wall tenderness, crackles, rhonchi, tachypnea Cardiovascular exam: PRESENT: RRR, +S1, +S2 Pulses: PRESENT: normal carotid pulses Vascular exam: PRESENT: normal capillary refill GI/Abdominal exam: PRESENT: normal bowel sounds, soft, other - Pendulous abdominal pannus. ABSENT: distended, guarding, rebound, tenderness Extremities exam: PRESENT: pedal edema, +1 edema. ABSENT: clubbing Musculoskeletal exam: PRESENT: normal inspection. ABSENT: deformity Neurological exam: PRESENT: awake, oriented to person, oriented to place, oriented to situation, CN II-XII grossly intact. ABSENT: motor sensory deficit Psychiatric exam: PRESENT: flat affect Skin exam: PRESENT: dry, warm Results Laboratory Results: 04/14/20 18:40 04/14/20 18:40 04/14/20 04/14/20 04/14/20 18:40 18:40 18:40 WBC 9.8 RBC 3.94 L Hgb 10.1 L Hct 31.6 L MCV 80 MCH 25.7 L MCHC 32.1 RDW 17.5 H Plt Count 185 Seg Neutrophils % Not Reportable VBG pH 7.37 VBG pCO2 37.9 VBG HCO3 21.5 VBG Base Excess -3.3 Sodium 135.5 L Potassium 4.4 Chloride 108 H Carbon Dioxide 20 L Anion Gap 8 BUN 27 H Creatinine 1.96 H Est GFR ( Amer) 40 L Glucose 136 H Lactic Acid Calcium 8.8 Total Bilirubin 1.3 AST 19 Alkaline Phosphatase 74 Total Protein 6.3 Albumin 3.5 Urine Color Urine Appearance Urine pH Ur Specific [place] Urine Protein Urine Glucose (UA) Urine Ketones Urine Blood Urine Nitrite Ur Leukocyte Esterase Urine WBC (Auto) Urine RBC (Auto) 04/14/20 04/14/20 04/14/20 18:40 18:50 21:56 WBC RBC Hgb Hct MCV MCH MCHC RDW Plt Count Seg Neutrophils % VBG pH VBG pCO2 VBG HCO3 VBG Base Excess Sodium Potassium Chloride Carbon Dioxide Anion Gap BUN Creatinine Est GFR ( Amer) Glucose Lactic Acid 1.0 0.7 Calcium Total Bilirubin AST Alkaline Phosphatase Total Protein Albumin Urine Color YELLOW Urine Appearance SLIGHTLY-CLOUDY Urine pH 5.0 Ur Specific [place] 1.011 Urine Protein 100 H Urine Glucose (UA) NEGATIVE Urine Ketones NEGATIVE Urine Blood SMALL H Urine Nitrite NEGATIVE Ur Leukocyte Esterase NEGATIVE Urine WBC (Auto) 2 Urine RBC (Auto) 0 Impressions: Chest X-Ray 04/14/20 19:59 IMPRESSION: Possible right basilar pneumonia. Possible emphysema. copyright 2011 [employer]- All Rights Reserved Head CT 04/14/20 20:13 IMPRESSION: 1. No acute intracranial findings. 2. Senescent changes with chronic microvascular ischemia. Assessment and Plan - Diagnosis (1) Sepsis Qualifiers: Sepsis type: sepsis due to unspecified organism Sepsis acute organ dysfunction status: without acute organ dysfunction Qualified Code(s): A41.9 - Sepsis, unspecified organism Is this a current diagnosis for this admission?: Yes Plan: Due to community-acquired pneumonia. He is on IV fluids and empiric antibiotics. Cultures are pending. (2) CAP (community acquired pneumonia) Qualifiers: Laterality: right Lung location: lower lobe of lung Qualified Code(s): J18.9 - Pneumonia, unspecified organism Is this a current diagnosis for this admission?: Yes Plan: empiric antibiotic coverage, cultures pending, I put him on some steroids becau se of his wheezing, they wanted to test him for COVID in the ER (3) CKD (chronic kidney disease) stage 3, GFR 30-59 ml/min Is this a current diagnosis for this admission?: Yes Plan: At baseline (4) Obesity (BMI 30-39.9) Is this a current diagnosis for this admission?: Yes - Time Time Spent with patient: 35 or more minutes Anticipated Discharge Disposition: Home with Home Health Anticipated Discharge Timeframe: within 72 hours - Inpatient Certification Based on my medical assessment, after consideration of the patient's comorbidities, presenting symptoms, or acuity I expect that the services needed warrant INPATIENT care.: Yes I certify that my determination is in accordance with my understanding of Medicare's requirements for reasonable and necessary INPATIENT services [42 CFR 412.3e].: Yes Medical Necessity: Significant Comorbidiites Make Outpatient Treatment Too Risky, Need Close Monitoring Due to Risk of Patient Decompensation, Need For IV Fluids, Need For Continuous Telemetry Monitoring, Need for IV Antibiotics, Risk of Complication if Not Cared For in Hospital
[2020-04-15] MEDS: METHYLPREDNISOLONE INJ 40 MG/1 ML SDV IV SCH ×3 (01:57→17:58)
[2020-04-15] MEDS: NORMAL SALINE 1000 ML 1,000 ML IV PRN ×2 (02:37→21:05)
[2020-04-15] MEDS ORDERED: PIPERACILLIN/TAZOBACTAM 3.375 GM VIAL IV ONE (02:48)
[2020-04-15] MEDS: PIPERACILLIN SODIUM/TAZOBACTAM 3.375 GM in NORMAL SALINE 100 ML IV SCH ×4 (03:30→21:05)
[2020-04-15] MEDS ORDERED: ALBUTEROL SULFATE HFA (90 MCG/PUFF) 8 GM MDI IH PRN (03:37)
[2020-04-15] MEDS ORDERED: ALBUTEROL SULFATE HFA (90 MCG/PUFF) 8 GM MDI IH ONE (04:07)
[2020-04-15] MEDS: HEPARIN SOD (PORCINE) 5,000 UNIT/ML 1 ML VIAL SUBCUT SCH ×4 (05:50→22:05)
[2020-04-15 06:10] LABS: HEMOGLOBIN 10.1 g/dL (13.5-17.0); MEAN CORPUSCULAR HEMOGLOBIN 26.1 pg (27.0-33.4); MEAN CORPUSCULAR HGB CONC 32.4 g/dL (32.0-36.0); MEAN CORPUSCULAR VOLUME 81 fl (80-97); PLATELET COUNT 174 10^3/uL (150-450); RED BLOOD COUNT 3.85 10^6/uL (4.35-5.55); WHITE BLOOD COUNT 10.3 10^3/uL (4.0-10.5)
[2020-04-15 06:33] LABS: ANION GAP 9 (5-19); BLOOD UREA NITROGEN 30 mg/dL (7-20); CALCIUM 8.2 mg/dL (8.4-10.2); CARBON DIOXIDE 19 mmol/L (22-30); CHLORIDE 110 mmol/L (98-107); GLUCOSE 127 mg/dL (75-110)
[2020-04-15] MEDS ORDERED: ALBUTEROL SULFATE HFA (90 MCG/PUFF) 200 PUFF/8.5 GM MDI IH PRN (07:57)
--- NOTE | 2020-04-15 08:20 | EKG REPORT ---
SEVERITY:- ABNORMAL ECG - SINUS RHYTHM PROBABLE LEFT ATRIAL ABNORMALITY RIGHT BUNDLE BRANCH BLOCK LVH WITH SECONDARY REPOLARIZATION ABNORMALITY : Confirmed by: Ramsey Serrato MD 15-Apr-2020 08:18:50
[2020-04-15] MEDS: CHOLECALCIFEROL (D3) 400 UNIT TABLET PO SCH (10:12)
[2020-04-15] MEDS: ZINC SULFATE 220 MG CAPSULE PO SCH (10:12)
[2020-04-15] MEDS: ASCORBIC ACID 500 MG TABLET PO SCH ×2 (10:12→17:59)
[2020-04-15 11:13] LABS: FERRITIN 86.8 ng/mL (17.9-464.0)
--- NOTE | 2020-04-15 18:14 | PDOC PROGRESS REPORT ---
Subjective Progress Note for:: 04/15/20 Subjective:: Patient was seen on morning rounds. He is found sitting up to the edge of the bed, comfortably, on supplemental oxygen. He reports continued dyspnea, though improved from his baseline. He denies chest pain, pleurisy, cough. He does complain of frequent, watery/loose, stools today without associated abdominal discomfort. He then tells a long, convoluted story about his son and [id number] and a grocery shopping trip. He seems to relate this to his current symptoms, but I can not follow (perhaps describing the time of onset of symptoms?). Otherwise, he is very pleasant and social this morning. He denies further fevers (TMax 102 on arrival to ED), chest pain, palpitations, orthopnea, cough, abd pain, nausea and vomiting. Reports good appetite; was pleased w/ breakfast. He has no questions or concerns at this time. No concerns per nursing; per nursing, no known loose stools today. Reason For Visit: SEPSIS,PNEUMONIA Physical Exam Vital Signs: Temp Pulse Resp BP Pulse Ox 97.6 F 71 21 H 143/55 H 98 04/15/20 12:47 04/15/20 12:47 04/15/20 12:47 04/15/20 12:47 04/15/20 12:47 Intake & Output 04/14/20 04/15/20 04/16/20 06:59 06:59 06:59 Intake Total 1023 340 Output Total 100 Balance 923 340 Weight 110.3 kg General appearance: PRESENT: no acute distress, cooperative, well-developed, well-nourished - overweight Head exam: PRESENT: atraumatic, normocephalic Eye exam: PRESENT: conjunctiva pink, EOMI, PERRLA. ABSENT: scleral icterus Mouth exam: PRESENT: moist, tongue midline Respiratory exam: PRESENT: clear to auscultation eddi, decreased breath sounds - bibasilar, symmetrical, unlabored, other - supplemental oxygen. ABSENT: rales, rhonchi, wheezes Cardiovascular exam: PRESENT: RRR. ABSENT: diastolic murmur, rubs, systolic murmur Pulses: PRESENT: normal dorsalis pedis pul Vascular exam: PRESENT: normal capillary refill Extremities exam: PRESENT: full ROM. ABSENT: calf tenderness, clubbing, pedal edema Musculoskeletal exam: PRESENT: ambulatory Neurological exam: PRESENT: alert, awake, oriented to person, oriented to place, oriented to situation, CN II-XII grossly intact, other - confabulates; repetative. ABSENT: motor sensory deficit Psychiatric exam: PRESENT: appropriate affect, normal mood. ABSENT: homicidal ideation, suicidal ideation Skin exam: PRESENT: dry, intact, warm. ABSENT: cyanosis, rash Results Laboratory Results: 04/15/20 05:40 04/15/20 05:40 04/14/20 04/14/20 04/14/20 18:40 18:40 18:40 WBC 9.8 RBC 3.94 L Hgb 10.1 L Hct 31.6 L MCV 80 MCH 25.7 L MCHC 32.1 RDW 17.5 H Plt Count 185 Seg Neutrophils % Not Reportable VBG pH 7.37 VBG pCO2 37.9 VBG HCO3 21.5 VBG Base Excess -3.3 Sodium 135.5 L Potassium 4.4 Chloride 108 H Carbon Dioxide 20 L Anion Gap 8 BUN 27 H Creatinine 1.96 H Est GFR ( Amer) 40 L Glucose 136 H Lactic Acid Calcium 8.8 Ferritin Total Bilirubin 1.3 AST 19 Alkaline Phosphatase 74 C-Reactive Protein Total Protein 6.3 Albumin 3.5 Urine Color Urine Appearance Urine pH Ur Specific [place] Urine Protein Urine Glucose (UA) Urine Ketones Urine Blood Urine Nitrite Ur Leukocyte Esterase Urine WBC (Auto) Urine RBC (Auto) 04/14/20 04/14/20 04/14/20 18:40 18:50 21:56 WBC RBC Hgb Hct MCV MCH MCHC RDW Plt Count Seg Neutrophils % VBG pH VBG pCO2 VBG HCO3 VBG Base Excess Sodium Potassium Chloride Carbon Dioxide Anion Gap BUN Creatinine Est GFR ( Amer) Glucose Lactic Acid 1.0 0.7 Calcium Ferritin Total Bilirubin AST Alkaline Phosphatase C-Reactive Protein Total Protein Albumin Urine Color YELLOW Urine Appearance SLIGHTLY-CLOUDY Urine pH 5.0 Ur Specific [place] 1.011 Urine Protein 100 H Urine Glucose (UA) NEGATIVE Urine Ketones NEGATIVE Urine Blood SMALL H Urine Nitrite NEGATIVE Ur Leukocyte Esterase NEGATIVE Urine WBC (Auto) 2 Urine RBC (Auto) 0 04/15/20 04/15/20 04/15/20 01:07 05:40 05:40 WBC 10.3 RBC 3.85 L Hgb 10.1 L Hct 31.0 L MCV 81 MCH 26.1 L MCHC 32.4 RDW 18.0 H Plt Count 174 Seg Neutrophils % VBG pH VBG pCO2 VBG HCO3 VBG Base Excess Sodium 137.6 Potassium 5.0 Chloride 110 H Carbon Dioxide 19 L Anion Gap 9 BUN 30 H Creatinine 1.89 H Est GFR ( Amer) 42 L Glucose 127 H Lactic Acid 0.9 Calcium 8.2 L Ferritin Total Bilirubin AST Alkaline Phosphatase C-Reactive Protein Total Protein Albumin Urine Color Urine Appearance Urine pH Ur Specific [place] Urine Protein Urine Glucose (UA) Urine Ketones Urine Blood Urine Nitrite Ur Leukocyte Esterase Urine WBC (Auto) Urine RBC (Auto) 04/15/20 09:35 WBC RBC Hgb Hct MCV MCH MCHC RDW Plt Count Seg Neutrophils % VBG pH VBG pCO2 VBG HCO3 VBG Base Excess Sodium Potassium Chloride Carbon Dioxide Anion Gap BUN Creatinine Est GFR ( Amer) Glucose Lactic Acid Calcium Ferritin 86.80 Total Bilirubin AST Alkaline Phosphatase C-Reactive Protein 81.0 H Total Protein Albumin Urine Color Urine Appearance Urine pH Ur Specific [place] Urine Protein Urine Glucose (UA) Urine Ketones Urine Blood Urine Nitrite Ur Leukocyte Esterase Urine WBC (Auto) Urine RBC (Auto) Impressions: Chest X-Ray 04/14/20 19:59 IMPRESSION: Possible right basilar pneumonia. Possible emphysema. copyright 2011 [employer]- All Rights Reserved Head CT 04/14/20 20:13 IMPRESSION: 1. No acute intracranial findings. 2. Senescent changes with chronic microvascular ischemia. Assessment and Plan - Diagnosis (1) CAP (community acquired pneumonia) Qualifiers: Laterality: right Lung location: lower lobe of lung Qualified Code(s): J18.9 - Pneumonia, unspecified organism Is this a current diagnosis for this admission?: Yes Plan: Blood cultures are pending. COVID 19 pending Patient is admitted to the medical floor on continuous cardiac telemetry. He is empirically placed on IV Zosyn. He is provided supplemental oxygen as needed to maintain oxygen saturations greater than 89%. He is provided scheduled and as needed nebulizer treatments. Mucinex twice daily. Pulmonary toilet is encouraged. (2) Sepsis Qualifiers: Sepsis type: sepsis due to unspecified organism Sepsis acute organ dysfunction status: without acute organ dysfunction Qualified Code(s): A41.9 - Sepsis, unspecified organism Is this a current diagnosis for this admission?: Yes Plan: Improved. Due to community-acquired pneumonia. He is on IV fluids and empiric antibiotics. Cultures are pending. (3) CKD (chronic kidney disease) stage 3, GFR 30-59 ml/min Is this a current diagnosis for this admission?: Yes Plan: At baseline Avoid nephrotoxic medications. Followup chemistry. (4) Obesity (BMI 30-39.9) Is this a current diagnosis for this admission?: Yes Plan: Lifestyle and dietary modifications encouraged. Cardiac diet. (5) Suspected COVID-19 virus infection Is this a current diagnosis for this admission?: Yes Plan: COVID pending. Continue daily vitamin C, vitamin D, zinc, melatonin. IV Solu-Medrol. - Time Time Spent with patient: 35 or more minutes Medications reviewed and adjusted accordingly: Yes Anticipated Discharge Disposition: Home with Home Health Anticipated Discharge Timeframe: >72 hrs
[2020-04-15] MEDS: ALBUTEROL SULFATE 0.083% NEB 2.5 MG/3 ML AMPUL NEB SCH (21:35)
[2020-04-15] MEDS: SERTRALINE HCL 50 MG TABLET PO SCH (22:05)
[2020-04-15] MEDS: MELATONIN 3 MG TABLET PO SCH (22:05)
[2020-04-16] MEDS: PIPERACILLIN SODIUM/TAZOBACTAM 3.375 GM in NORMAL SALINE 100 ML IV SCH ×4 (02:01→21:01)
[2020-04-16] MEDS: METHYLPREDNISOLONE INJ 40 MG/1 ML SDV IV SCH ×3 (02:01→16:59)
[2020-04-16] MEDS: HEPARIN SOD (PORCINE) 5,000 UNIT/ML 1 ML VIAL SUBCUT SCH (05:10)
[2020-04-16 05:24] LABS: HEMATOCRIT 29.8 % (37.9-51.0); HEMOGLOBIN 9.6 g/dL (13.5-17.0); MEAN CORPUSCULAR HEMOGLOBIN 25.9 pg (27.0-33.4); MEAN CORPUSCULAR HGB CONC 32.1 g/dL (32.0-36.0); MEAN CORPUSCULAR VOLUME 81 fl (80-97); PLATELET COUNT 160 10^3/uL (150-450); RED BLOOD COUNT 3.69 10^6/uL (4.35-5.55); WHITE BLOOD COUNT 5.7 10^3/uL (4.0-10.5)
[2020-04-16 05:38] LABS: ANION GAP 7 (5-19); BLOOD UREA NITROGEN 47 mg/dL (7-20); CALCIUM 8.5 mg/dL (8.4-10.2); CARBON DIOXIDE 19 mmol/L (22-30); CHLORIDE 110 mmol/L (98-107); GLUCOSE 156 mg/dL (75-110); POTASSIUM 4.5 mmol/L (3.6-5.0)
[2020-04-16] MEDS: FERROUS SULFATE 325 MG TABLET PO SCH ×3 (08:26→16:54)
[2020-04-16] MEDS: ALBUTEROL SULFATE 0.083% NEB 2.5 MG/3 ML AMPUL NEB SCH ×4 (08:31→20:15)
[2020-04-16] MEDS: ENOXAPARIN SODIUM INJ 30 MG/0.3 ML DISP.SYRIN SUBCUT SCH ×2 (10:24→11:57)
[2020-04-16] MEDS: CLOPIDOGREL BISULFATE 75 MG TABLET PO SCH ×2 (10:25→11:57)
[2020-04-16] MEDS: ZINC SULFATE 220 MG CAPSULE PO SCH (10:25)
[2020-04-16] MEDS: CHOLECALCIFEROL (D3) 400 UNIT TABLET PO SCH (10:25)
[2020-04-16] MEDS: ASCORBIC ACID 500 MG TABLET PO SCH ×2 (10:25→16:59)
[2020-04-16] MEDS: NORMAL SALINE 1000 ML 1,000 ML IV PRN ×2 (12:13→21:02)
--- NOTE | 2020-04-16 15:15 | PDOC PROGRESS REPORT ---
Subjective Progress Note for:: 04/16/20 Subjective:: Patient was seen on morning rounds. He is found sitting up to the edge of the bed, comfortably, on supplemental oxygen. He reports continued dyspnea, though improved from his baseline. He denies chest pain, pleurisy, cough. He does complain of frequent, watery/loose, stools today without associated abdominal discomfort. He then tells a long, convoluted story about his son and [id number] and a grocery shopping trip. He seems to relate this to his current symptoms, but I can not follow (perhaps describing the time of onset of symptoms?). Otherwise, he is very pleasant and social this morning. He denies further fevers (TMax 102 on arrival to ED), chest pain, palpitations, orthopnea, cough, abd pain, nausea and vomiting. Reports good appetite; was pleased w/ breakfast. He has no questions or concerns at this time. No concerns per nursing; per nursing, no known loose stools today. Reason For Visit: SEPSIS,PNEUMONIA Physical Exam Vital Signs: Temp Pulse Resp BP Pulse Ox 98.5 F 81 20 120/55 L 96 04/16/20 11:41 04/16/20 14:00 04/16/20 12:24 04/16/20 11:41 04/16/20 12:24 Intake & Output 04/15/20 04/16/20 04/17/20 06:59 06:59 06:59 Intake Total 1023 2783 340 Output Total 100 0 Balance 923 2783 340 Weight 110.3 kg 109 kg General appearance: PRESENT: no acute distress, cooperative, well-developed, well-nourished - overweight Head exam: PRESENT: atraumatic, normocephalic Eye exam: PRESENT: conjunctiva pink, EOMI, PERRLA. ABSENT: scleral icterus Mouth exam: PRESENT: moist, tongue midline Respiratory exam: PRESENT: clear to auscultation eddi, decreased breath sounds - bibasilar, symmetrical, unlabored, other - room air. ABSENT: rales, rhonchi, wheezes Cardiovascular exam: PRESENT: RRR. ABSENT: diastolic murmur, rubs, systolic murmur Pulses: PRESENT: normal dorsalis pedis pul Vascular exam: PRESENT: normal capillary refill Extremities exam: PRESENT: full ROM. ABSENT: calf tenderness, clubbing, pedal edema Musculoskeletal exam: PRESENT: ambulatory Neurological exam: PRESENT: alert, awake, oriented to person, oriented to place, CN II-XII grossly intact, other - pleasantly confused, confabulates, repetative. ABSENT: motor sensory deficit Psychiatric exam: PRESENT: appropriate affect, normal mood. ABSENT: homicidal ideation, suicidal ideation Skin exam: PRESENT: dry, intact, warm. ABSENT: cyanosis, rash Results Laboratory Results: 04/16/20 04:42 04/16/20 04:42 04/16/20 04/16/20 04:42 04:42 WBC 5.7 RBC 3.69 L Hgb 9.6 L Hct 29.8 L MCV 81 MCH 25.9 L MCHC 32.1 RDW 18.0 H Plt Count 160 Sodium 135.9 L Potassium 4.5 Chloride 110 H Carbon Dioxide 19 L Anion Gap 7 BUN 47 H Creatinine 2.11 H Est GFR ( Amer) 37 L Glucose 156 H Calcium 8.5 Impressions: Chest X-Ray 04/14/20 19:59 IMPRESSION: Possible right basilar pneumonia. Possible emphysema. copyright 2011 [employer]- All Rights Reserved Head CT 04/14/20 20:13 IMPRESSION: 1. No acute intracranial findings. 2. Senescent changes with chronic microvascular ischemia. Assessment and Plan - Diagnosis (1) CAP (community acquired pneumonia) Qualifiers: Laterality: right Lung location: lower lobe of lung Qualified Code(s): J18.9 - Pneumonia, unspecified organism Is this a current diagnosis for this admission?: Yes Plan: Blood cultures are negative at 24 hrs COVID 19 pending Patient is admitted to the medical floor on continuous cardiac telemetry. He is empirically placed on IV Zosyn. He is provided supplemental oxygen as needed to maintain oxygen saturations greater than 89%. He is provided scheduled and as needed nebulizer treatments. Mucinex twice daily. Pulmonary toilet is encouraged. (2) Sepsis Qualifiers: Sepsis type: sepsis due to unspecified organism Sepsis acute organ dysfunction status: without acute organ dysfunction Qualified Code(s): A41.9 - Sepsis, unspecified organism Is this a current diagnosis for this admission?: Yes Plan: Resolved; VSS, WBC nml, lactic acid nml Due to community-acquired pneumonia. He is on IV fluids and empiric antibiotics. Cultures as above (3) CKD (chronic kidney disease) stage 3, GFR 30-59 ml/min Is this a current diagnosis for this admission?: Yes Plan: At baseline Avoid nephrotoxic medications. Followup chemistry. (4) Obesity (BMI 30-39.9) Is this a current diagnosis for this admission?: Yes Plan: Lifestyle and dietary modifications encouraged. Cardiac diet. (5) Suspected COVID-19 virus infection Is this a current diagnosis for this admission?: Yes Plan: COVID pending. Continue daily vitamin C, vitamin D, zinc, melatonin. IV Solu-Medrol. (6) Diarrhea Qualifiers: Diarrhea type: unspecified type Qualified Code(s): R19.7 - Diarrhea, unspecified Is this a current diagnosis for this admission?: Yes Plan: Multiple episodes of loose stool. COVID pending Stool Culture and WBC pending. - Time Time Spent with patient: 35 or more minutes Medications reviewed and adjusted accordingly: Yes Anticipated Discharge Disposition: Home with Home Health Anticipated Discharge Timeframe: within 72 hours - pending culture results
[2020-04-16] MEDS: MELATONIN 3 MG TABLET PO SCH (21:29)
[2020-04-16] MEDS: SERTRALINE HCL 50 MG TABLET PO SCH (21:29)
[2020-04-17] MEDS: PIPERACILLIN SODIUM/TAZOBACTAM 3.375 GM in NORMAL SALINE 100 ML IV SCH ×2 (04:47→10:12)
[2020-04-17] MEDS: METHYLPREDNISOLONE INJ 40 MG/1 ML SDV IV SCH (04:47)
[2020-04-17] MEDS: NORMAL SALINE 1000 ML 1,000 ML IV PRN (05:58)
[2020-04-17 06:53] LABS: HEMATOCRIT 27.4 % (37.9-51.0); HEMOGLOBIN 8.8 g/dL (13.5-17.0); MEAN CORPUSCULAR HEMOGLOBIN 25.8 pg (27.0-33.4); MEAN CORPUSCULAR HGB CONC 32.1 g/dL (32.0-36.0); MEAN CORPUSCULAR VOLUME 80 fl (80-97); PLATELET COUNT 159 10^3/uL (150-450); RED BLOOD COUNT 3.41 10^6/uL (4.35-5.55); WHITE BLOOD COUNT 7.9 10^3/uL (4.0-10.5)
[2020-04-17 07:24] LABS: ANION GAP 7 (5-19); BLOOD UREA NITROGEN 51 mg/dL (7-20); CARBON DIOXIDE 18 mmol/L (22-30); CHLORIDE 111 mmol/L (98-107); GLUCOSE 155 mg/dL (75-110); POTASSIUM 4.1 mmol/L (3.6-5.0)
[2020-04-17] MEDS: ALBUTEROL SULFATE 0.083% NEB 2.5 MG/3 ML AMPUL NEB SCH ×2 (08:12→11:11)
[2020-04-17] MEDS: FERROUS SULFATE 325 MG TABLET PO SCH (10:10)
[2020-04-17] MEDS: CLOPIDOGREL BISULFATE 75 MG TABLET PO SCH (10:11)
[2020-04-17] MEDS: ASCORBIC ACID 500 MG TABLET PO SCH (10:12)
--- NOTE | 2020-04-17 11:53 | PDOC DISCHARGE SUMMARY ---
Impression - Admit/DC Date/PCP Admission Date/Primary Care Provider: 04/14/20 23:51 KENYON ALVARENGA MD Discharge Date: 04/17/20 - Discharge Diagnosis (1) CAP (community acquired pneumonia) Is this a current diagnosis for this admission?: Yes (2) Sepsis Is this a current diagnosis for this admission?: Yes (3) CKD (chronic kidney disease) stage 3, GFR 30-59 ml/min Is this a current diagnosis for this admission?: Yes (4) Obesity (BMI 30-39.9) Is this a current diagnosis for this admission?: Yes (5) Suspected COVID-19 virus infection Is this a current diagnosis for this admission?: Yes (6) Diarrhea Is this a current diagnosis for this admission?: Yes - Additional Information Discharge Diet: Cardiac Discharge Activity: Activity As Tolerated, Balance Activity w/Rest, Pelvic Rest Referrals: KENYON ALVRAENGA MD [Primary Care Provider] - Follow up as needed Prescriptions: Amoxicillin/Potassium Clav [Augmentin 875-125 Tablet] 1 tab PO BID #20 tab Prednisone [Deltasone 20 mg Tablet] 60 mg PO DAILY #12 tablet Albuterol Sulfate [Proair HFA Inhalation Aerosol 8.5 gm MDI] 1 puff IH Q4HP PRN #1 hfa.aer.ad PRN Reason: shortness of breath, wheezing Home Medications: Albuterol Sulfate [Ventolin 0.083% Neb 2.5 mg/3 mL Ampul] 2.5 mg NEB QID 04/15/20 Clopidogrel Bisulfate [Plavix 75 mg Tablet] 75 mg PO DAILY 04/15/20 Ferrous Sulfate [Ferosul] 325 mg PO TID 04/15/20 Sertraline HCl 25 mg PO QHS 04/15/20 Torsemide [Demadex 20 mg Tablet] 40 mg PO BID 04/15/20 Acetaminophen [Tylenol 325 mg Tablet] 650 mg PO Q4HP PRN tablet 04/17/20 Albuterol Sulfate [Proair HFA Inhalation Aerosol 8.5 gm MDI] 1 puff IH Q4HP PRN #1 hfa.aer.ad 04/17/20 Amoxicillin/Potassium Clav [Augmentin 875-125 Tablet] 1 tab PO BID #20 tab 04/17/20 Prednisone [Deltasone 20 mg Tablet] 60 mg PO DAILY #12 tablet 04/17/20 History of Present Illiness History of Present Illness: Per H&P by Dr. Jaimes: JANEY WILSON is a 79 year old male with a history of COPD who says he is not on oxygen at home is not a very good historian, he just tells me that he was not feeling very good at home and so his son called EMS and the next thing he knows he is in the hospital. He did have a fever here with a temperature of greater than 102 Fahrenheit. He did not have a leukocytosis but his blood pressure was a little bit low with a systolic in the 90s, but it did respond to fluid. He has chronic kidney disease which is at his baseline. He is not really been having any cough or shortness of breath, but is not very active and so he is not been trying to get up and move around a whole lot. Chest x-ray shows what looks like some baseline pulmonary fibrosis but he also appears to have a right lower lobe pulmonary edema consistent with pneumonia. Hospital Course Hospital Course: (1) CAP (community acquired pneumonia) Blood cultures are negative at 48 hrs COVID 19 negative Patient waas admitted to the medical floor on continuous cardiac telemetry. He is empirically placed on IV Zosyn; transitioned to p.o. Augementin at discharge to complete antibiotic course. He was provided supplemental oxygen, scheduled and as needed nebulizer treatments, and Mucinex twice daily. Pulmonary toilet is encouraged. He is now ambulating on room air and maintaining oxygen saturations in the mid to high 90s. (2) Sepsis Resolved; VSS, WBC nml, lactic acid nml Due to community-acquired pneumonia. Received appropriate fluid resuscitation. Cultures and antibiotics as above. (3) CKD (chronic kidney disease) stage 3, GFR 30-59 ml/min At baseline Avoid nephrotoxic medications. Routine outpatient monitoring. (4) Obesity (BMI 30-39.9) Lifestyle and dietary modifications encouraged. Cardiac diet. (5) Suspected COVID-19 virus infection Negative. Supported with daily vitamin C, vitamin D, zinc, melatonin and IV Solu-Medrol. (6) Diarrhea Resolved. Multiple episodes of loose stool. COVID negative Stool Culture and WBC pending. Physical Exam Vital Signs: Temp Pulse Resp BP Pulse Ox 97.6 F 72 15 135/49 H 97 04/17/20 08:30 04/17/20 11:11 04/17/20 11:11 04/17/20 08:30 04/17/20 11:11 Intake & Output 04/16/20 04/17/20 04/18/20 06:59 06:59 06:59 Intake Total 2783 5510 210 Output Total 0 Balance 2783 5510 210 Weight 109 kg 117.7 kg General appearance: PRESENT: no acute distress, cooperative, well-developed, well-nourished - overweight Head exam: PRESENT: atraumatic, normocephalic Eye exam: PRESENT: conjunctiva pink, EOMI, PERRLA. ABSENT: scleral icterus Ear exam: PRESENT: normal external ear exam Mouth exam: PRESENT: moist, tongue midline Respiratory exam: PRESENT: clear to auscultation eddi, symmetrical, unlabored, other - ambulatory on room air. ABSENT: rales, rhonchi, wheezes Cardiovascular exam: PRESENT: RRR. ABSENT: diastolic murmur, rubs, systolic murmur Pulses: PRESENT: normal dorsalis pedis pul Vascular exam: PRESENT: normal capillary refill Extremities exam: PRESENT: full ROM. ABSENT: calf tenderness, clubbing, pedal edema Musculoskeletal exam: PRESENT: ambulatory Neurological exam: PRESENT: alert, awake, oriented to person, oriented to place, oriented to time, oriented to situation, CN II-XII grossly intact. ABSENT: motor sensory deficit Psychiatric exam: PRESENT: appropriate affect, normal mood. ABSENT: homicidal ideation, suicidal ideation Skin exam: PRESENT: dry, intact, warm. ABSENT: cyanosis, rash Results Laboratory Results: WBC 7.9 10^3/uL (4.0-10.5) 04/17/20 06:26 RBC 3.41 10^6/uL (4.35-5.55) L 04/17/20 06:26 Hgb 8.8 g/dL (13.5-17.0) L 04/17/20 06:26 Hct 27.4 % (37.9-51.0) L 04/17/20 06:26 MCV 80 fl (80-97) 04/17/20 06:26 MCH 25.8 pg (27.0-33.4) L 04/17/20 06:26 MCHC 32.1 g/dL (32.0-36.0) 04/17/20 06:26 RDW 18.0 % (11.5-14.0) H 04/17/20 06:26 Plt Count 159 10^3/uL (150-450) 04/17/20 06:26 Lymph % (Auto) Not Reportable 04/14/20 18:40 [place] % (Auto) Not Reportable 04/14/20 18:40 Eos % (Auto) Not Reportable 04/14/20 18:40 Baso % (Auto) Not Reportable 04/14/20 18:40 Absolute Neuts (auto) Not Reportable 04/14/20 18:40 Absolute Lymphs (auto) Not Reportable 04/14/20 18:40 Absolute Monos (auto) Not Reportable 04/14/20 18:40 Absolute Eos (auto) Not Reportable 04/14/20 18:40 Absolute Basos (auto) Not Reportable 04/14/20 18:40 Total Counted 100 04/14/20 18:40 Seg Neutrophils % Not Reportable 04/14/20 18:40 Seg Neuts % (Manual) 84 % (42-78) H 04/14/20 18:40 Lymphocytes % (Manual) 3 % (13-45) L 04/14/20 18:40 Monocytes % (Manual) 11 % (3-13) 04/14/20 18:40 Eosinophils % (Manual) 2 % (0-6) 04/14/20 18:40 Basophils % (Manual) 0 % (0-2) 04/14/20 18:40 Abs Neuts (Manual) 8.2 10^3/uL (1.7-8.2) 04/14/20 18:40 Abs Lymphs (Manual) 0.3 10^3/uL (0.5-4.7) L 04/14/20 18:40 Abs Monocytes (Manual) 1.1 10^3/uL (0.1-1.4) 04/14/20 18:40 Absolute Eos (Manual) 0.2 10^3/uL (0.0-0.6) 04/14/20 18:40 Abs Basophils (Manual) 0.0 10^3/uL (0.0-0.2) 04/14/20 18:40 Toxic Vacuolation PRESENT 04/14/20 18:40 Platelet Comment ADEQUATE 08/14/20 18:40 Anisocytosis 2+ 04/14/20 18:40 PT 15.5 SEC (11.4-15.4) H 04/14/20 18:40 INR 1.21 04/14/20 18:40 D-Dimer 1.61 ug/mL (0.00-0.50) H 04/15/20 09:35 VBG pH 7.37 (7.30-7.42) 04/14/20 18:40 VBG pCO2 37.9 mmHg (35-63) 04/14/20 18:40 VBG HCO3 21.5 mmol/L (20-32) 04/14/20 18:40 VBG Base Excess -3.3 mmol/L 04/14/20 18:40 Sodium 135.7 mmol/L (137-145) L 04/17/20 06:26 Potassium 4.1 mmol/L (3.6-5.0) 04/17/20 06:26 Chloride 111 mmol/L (98-107) H 04/17/20 06:26 Carbon Dioxide 18 mmol/L (22-30) L 04/17/20 06:26 Anion Gap 7 (5-19) 04/17/20 06:26 BUN 51 mg/dL (7-20) H 04/17/20 06:26 Creatinine 2.03 mg/dL (0.52-1.25) H 04/17/20 06:26 Est GFR ( Amer) 38 (>60) L 04/17/20 06:26 Est GFR (MDRD) Non-Af 32 (>60) L 04/17/20 06:26 Glucose 155 mg/dL (75-110) H 04/17/20 06:26 Lactic Acid 0.9 mmol/L (0.7-2.1) 04/15/20 01:07 Calcium 8.0 mg/dL (8.4-10.2) L 04/17/20 06:26 Ferritin 86.80 ng/mL (17.9-464.0) 04/15/20 09:35 Total Bilirubin 1.3 mg/dL (0.2-1.3) 04/14/20 18:40 Direct Bilirubin 0.1 mg/dL (0.0-0.4) 04/14/20 18:40 Neonat Total Bilirubin Not Reportable 04/14/20 18:40 Neonat Direct Bilirubin Not Reportable 04/14/20 18:40 Neonat Indirect Bili Not Reportable 04/14/20 18:40 AST 19 U/L (17-59) 04/14/20 18:40 ALT 10 U/L (<50) 04/14/20 18:40 Alkaline Phosphatase 74 U/L (38-126) 04/14/20 18:40 Lactate Dehydrogenase 275 U/L (120-246) H 04/15/20 09:35 C-Reactive Protein 81.0 mg/L (<10.0) H 04/15/20 09:35 Total Protein 6.3 g/dL (6.3-8.2) 04/14/20 18:40 Albumin 3.5 g/dL (3.5-5.0) 04/14/20 18:40 Urine Color YELLOW 04/14/20 18:50 Urine Appearance SLIGHTLY-CLOUDY 04/14/20 18:50 Urine pH 5.0 (5.0-9.0) 04/14/20 18:50 Ur Specific [place] 1.011 04/14/20 18:50 Urine Protein 100 mg/dL (NEGATIVE) H 04/14/20 18:50 Urine Glucose (UA) NEGATIVE mg/dL (NEGATIVE) 04/14/20 18:50 Urine Ketones NEGATIVE mg/dL (NEGATIVE) 04/14/20 18:50 Urine Blood SMALL (NEGATIVE) H 04/14/20 18:50 Urine Nitrite NEGATIVE (NEGATIVE) 04/14/20 18:50 Urine Bilirubin NEGATIVE (NEGATIVE) 04/14/20 18:50 Urine Urobilinogen NEGATIVE mg/dL (<2.0) 04/14/20 18:50 Ur Leukocyte Esterase NEGATIVE (NEGATIVE) 04/14/20 18:50 Urine WBC (Auto) 2 /HPF 04/14/20 18:50 Urine RBC (Auto) 0 /HPF 04/14/20 18:50 Squamous Epi Cells Auto 1 /HPF 04/14/20 18:50 Urine Mucus (Auto) RARE /LPF 04/14/20 18:50 Urine Ascorbic Acid NEGATIVE (NEGATIVE) 04/14/20 18:50 Stool for White Cells NO WBCs SEEN 04/16/20 17:10 COVID-19 Source NASOPHARYNGEAL 04/14/20 21:05 COVID-19 (SEBAS) NOT DETECTED 08/14/20 21:05 Impressions: Chest X-Ray 04/14/20 19:59 IMPRESSION: Possible right basilar pneumonia. Possible emphysema. copyright 2010 [employer]- All Rights Reserved Head CT 04/14/20 20:13 IMPRESSION: 1. No acute intracranial findings. 2. Senescent changes with chronic microvascular ischemia. Plan Plan of Treatment: Patient is discharged home, in stable condition, into the care of family members with home health services. He is advised to follow-up with his primary care provider within 1 week. 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 Take medications as prescribed. Complete full course of antibiotic therapy. Return to the emergency department as needed for concerning symptoms. Time Spent: Greater than 30 Minutes Stroke Is this a Stroke Patient?: No Acute Heart Failure - Is this a Heart Failure Patient?: No
[2020-04-17 12:33] VITALS: BP 137/63
[2020-04-18] MEDS ORDERED: PREDNISONE 20 MG TABLET PO SCH (10:00)
== END 2020-04-17 13:21 | disposition home or self-care (01) | DRG 871 ==
LOC: ER 18:26 → EH 23:51 → 3W 04-15 03:00 → 4N 04-16 20:03
PROVIDERS: ADMIT Family Medicine; ATTEND Registered Nurse
DX: A41.9 Sepsis, unspecified organism (principal); J18.9 Pneumonia, unspecified organism; I13.0 Hypertensive heart and chronic kidney disease with heart failure and stage 1 through stage 4 chronic kidney disease, or unspecified chronic kidney disease; J44.0 Chronic obstructive pulmonary disease with (acute) lower respiratory infection; I50.9 Heart failure, unspecified; N18.3 Chronic kidney disease, stage 3 (moderate); M19.90 Unspecified osteoarthritis, unspecified site; J44.9 Chronic obstructive pulmonary disease, unspecified; Z20.828 Contact with and (suspected) exposure to other viral communicable diseases; Z90.49 Acquired absence of other specified parts of digestive tract; Z83.3 Family history of diabetes mellitus; Z82.49 Family history of ischemic heart disease and other diseases of the circulatory system; Z79.51 Long term (current) use of inhaled steroids; Z79.899 Other long term (current) drug therapy; Z68.30 Body mass index [BMI] 30.0-30.9, adult
CPT/HCPCS: 36415; 70450; 71045; 80048; 80053; 81001; 82728; 82803; 83605; 83615; 85025; 85027; 85379; 85610; 86140; 87040; 87045; 87205; 87635; 89055; 93005; 93010; 94640; 96374; 96375; 99285; C9803; J0456; J1644; J1650; J2543; J2920; J3490; J7030; J7040; J7050

== ENCOUNTER 2020-04-29 10:23 | Inpatient (IN) | payer MEDICARE, OTHER ==
[2020-04-29] MEDS ORDERED: IPRATROPIUM/ALBUTEROL 0.5-2.5 MG/3 ML AMPUL NEB ONE ×3 (10:32→11:40)
[2020-04-29] MEDS ORDERED: NITROGLYCERIN/D5W 50 MG/250 ML RTUINJ IV PRN ×2 (10:35→12:12)
[2020-04-29] MEDS ORDERED: FUROSEMIDE INJ/PF 40 MG/4 ML SDV IV ONE (10:51)
[2020-04-29 10:56] LABS: ARTERIAL BLOOD BASE EXCESS -6.3 mmol/L; ARTERIAL BLOOD HCO3 22.3 mmol/L (20-24); ARTERIAL BLOOD O2 SATURATION 99.8 % (94-98); ARTERIAL BLOOD PCO2 59.9 mmHg (35-45); ARTERIAL BLOOD PO2 458.3 mmHg (80-100); ARTERIAL BLOOD TOTAL CO2 24.2 mmol/L (23-27)
[2020-04-29 10:58] LABS: ARTERIAL BLOOD FIO2 100%
[2020-04-29 10:59] LABS: ARTERIAL BLOOD PH 7.19 (7.35-7.45)
--- NOTE | 2020-04-29 11:01 | ER Document Report ---
ED Respiratory Problem - General Chief Complaint: Breathing Difficulty Stated Complaint: DIFFICULTY BREATHING Time Seen by Provider: 04/29/20 10:34 Primary Care Provider: KENYON ALVARENGA MD [Primary Care Provider] - Follow up as needed Notes: HPI: Patient is an 79-year-old male who was called by EMS secondary to shortness of breath. Patient is on home oxygen. History including COPD and congestive heart failure. They state that the patient was satting initially in the 60s/70s. They placed the patient on CPAP. They attempted to provide magnesium but then hold rails so they switched that to nitroglycerin at 10. Patient was satting between 90 and 95% on the CPAP. Supposedly no fevers, vomiting, chest pain, or diarrhea. ROS: See HPI Unable to obtain secondary to patient's condition Reviewed vital signs and nursing note as charted by RN. PHYSICAL EXAM: CONSTITUTIONAL: Alert and oriented and responds appropriately to questions. Obvious tachypnea on the CPAP HEAD: Normocephalic; atraumatic EYES: PERRL; Conjunctivae clear, sclerae non-icteric ENT: Normal nose; no rhinorrhea; moist mucous membranes; pharynx without lesions noted NECK: Supple without meningismus; non-tender; no cervical lymphadenopathy, no masses CARD: Tachycardia and regular; no murmurs; symmetric distal pulses RESP: Patient has obvious tachypnea present with bilateral rails without rhonchi or wheezing on initial auscultation to bilateral bases ABD/GI: Normal bowel sounds; elevated BMI; soft, non-tender; no palpable organomegaly or masses BACK: The back appears normal and is non-tender to palpation EXT: Normal ROM in all joints; non-tender to palpation; extensive 3+ pitting edema to bilateral lower extremities without any obvious erythema SKIN: No acute lesions noted NEURO: CN 2-12 intact; 5/5 bilateral upper and lower extremity strength with sensation intact to light touch TRAVEL OUTSIDE OF THE [place] IN LAST 30 DAYS: No - Related Data Allergies/Adverse Reactions: No Known Allergies Allergy (Verified 08/01/19 15:58) Past Medical History - Social History Smoking Status: Unknown if Ever Smoked Family History: DM, Hypertension. denies: CAD, Malignancy - Past Medical History Cardiac Medical History: Reports: Hx Congestive Heart Failure, Hx Hypertension Denies: Hx Coronary Artery Disease, Hx Heart Attack Pulmonary Medical History: Reports: Hx COPD Denies: Hx Asthma, Hx Bronchitis, Hx Pneumonia Neurological Medical History: Denies: Hx Cerebrovascular Accident, Hx Seizures Endocrine Medical History: Denies: Hx Diabetes Mellitus Type 1, Hx Diabetes Mellitus Type 2, Hx Hyperthyroidism, Hx Hypothyroidism Renal/ Medical History: Reports: Hx Benign Prostatic Hyperplasia, Hx Kidney Stones, Hx Renal Insufficiency GI Medical History: Reports: Hx Gastroesophageal Reflux Disease. Denies: Hx Cirrhosis, Hx Crohn's Disease, Hx Hepatitis, Hx Ulcerative Colitis Musculoskeletal Medical History: Reports Hx Arthritis, Denies Hx Gout Skin Medical History: Denies Hx Eczema, Denies Hx Psoriasis Psychiatric Medical History: Denies: Hx Depression Infectious Medical History: Denies: Hx Hepatitis Past Surgical History: Reports: Hx Cholecystectomy - Immunizations Hx Diphtheria, Pertussis, Tetanus Vaccination: Yes Hx Pneumococcal Vaccination: 06/01/13 Physical Exam - Vital signs Vitals: Resp Pulse Ox 27 H 100 04/29/20 10:28 04/29/20 10:28 Course - Re-evaluation Re-evalutation: Patient was immediately switched to BiPAP. Repeat blood pressure showed 210/100. Nitroglycerin was increased to 40. We have the patient sitting in an upright position to help ease respiration. Continuous nebulizer started and portable x-ray of the chest ordered. Given the patient's constellation of symptoms with 3+ pitting edema to bilateral lower extremities with rales on auscultation, I am worried about flash pulmonary edema and possible COPD e xacerbation. Lesser pretest probability for ACS, PE, or dissection. 04/29/20 11:00 Patient's blood pressure and breathing has improved. Satting 100% currently. EKG shows a heart rate of 96, normal sinus rhythm, right bundle branch block. LVH. PVCs present. Compared to the previous EKG T waves are now upright laterally with new PVCs present. 04/29/20 11:04 I was able to review the patient's past medical chart and it appears the patient was admitted and discharged around mid April secondary to a possible community- acquired pneumonia. He had a temperature of 102 at that time. Patient is on diuretics with a past medical history as recorded on initial HPI. I have added a lactate and will provide a one-time dose of broad-spectrum antibiotics as we await full evaluation. 04/29/20 11:04 ABG as recorded with a PCO2 of around 60. PO2 greater than 400. We will attempt to turn down the oxygen concentration in the COPD patient. 04/29/20 11:19 Patient is looking extremely better. He is speaking with the CPAP on saying "thanks doc". Blood pressure was 132/75. We will titrate down the nitroglycerin drip from 40 to 10 and reassess blood pressure. - Vital Signs Vital signs: Temp Pulse Resp BP Pulse Ox 29 H 133/88 H 100 04/29/20 11:18 04/29/20 11:26 04/29/20 11:26 - Laboratory Result Diagrams: 04/29/20 10:40 04/29/20 10:40 Laboratory results interpreted by me: 04/29/20 04/29/20 04/29/20 10:40 10:40 10:40 WBC 17.7 H RBC 4.11 L Hgb 10.5 L Hct 33.2 L MCH 25.5 L MCHC 31.6 L RDW 17.6 H Absolute Neuts (auto) 13.5 H Carbonic Acid ABG pH ABG pCO2 ABG pO2 ABG O2 Saturation BUN 31 H Creatinine 1.73 H Est GFR ( Amer) 46 L Est GFR (MDRD) Non-Af 38 L Glucose 267 H Direct Bilirubin 0.5 H AST 96 H ALT 67 H NT-Pro-B Natriuret Pep 26450 H Total Protein 5.9 L Albumin 3.4 L 04/29/20 10:40 WBC RBC Hgb Hct MCH MCHC RDW Absolute Neuts (auto) Carbonic Acid 1.80 H ABG pH 7.19 L* ABG pCO2 59.9 H ABG pO2 458.3 H ABG O2 Saturation 99.8 H BUN Creatinine Est GFR ( Amer) Est GFR (MDRD) Non-Af Glucose Direct Bilirubin AST ALT NT-Pro-B Natriuret Pep Total Protein Albumin Critical Care Note - Critical Care Note Total time excluding time spent on procedures (mins): 45 Discharge - Discharge Clinical Impression: Flash pulmonary edema, Respiratory distress, Hypertensive emergency Acute respiratory failure, unspecified whether with hypoxia or hypercapnia Qualifiers: Respiratory failure complication: hypoxia Qualified Code(s): J96.01 - Acute respiratory failure with hypoxia Condition: Fair Disposition: ADMITTED INPATIENT Admitting Provider: Max (Hospitalist) Unit Admitted: IMCU Referrals: KENYON ALVARENGA MD [Primary Care Provider] - Follow up as needed
[2020-04-29 11:03] LABS: ABSOLUTE BASOPHILS # (AUTO) 0.1 10^3/uL (0.0-0.2); ABSOLUTE EOSINOPHILS # (AUTO) 0.1 10^3/uL (0.0-0.6); ABSOLUTE LYMPHOCYTES (AUTO) 2.6 10^3/uL (0.5-4.7); ABSOLUTE MONOCYTES (AUTO) 1.4 10^3/uL (0.1-1.4); ABSOLUTE NEUT (AUTO) 13.5 10^3/uL (1.7-8.2); BASOPHILS % (AUTO) 0.7 % (0-2); EOSINOPHILS % (AUTO) 0.4 % (0-6); HEMATOCRIT 33.2 % (37.9-51.0); HEMOGLOBIN 10.5 g/dL (13.5-17.0); LYMPHOCYTES % (AUTO) 14.6 % (13-45); MEAN CORPUSCULAR HEMOGLOBIN 25.5 pg (27.0-33.4); MEAN CORPUSCULAR HGB CONC 31.6 g/dL (32.0-36.0); MEAN CORPUSCULAR VOLUME 81 fl (80-97); MONOCYTES % (AUTO) 7.9 % (3-13); PLATELET COUNT 283 10^3/uL (150-450); RED BLOOD COUNT 4.11 10^6/uL (4.35-5.55); RED CELL DISTRIBUTION WIDTH 17.6 % (11.5-14.0); SEGMENTED NEUTROPHILS % (AUTO) 76.4 % (42-78); TOTAL CELLS COUNTED % (AUTO) 100 %; WHITE BLOOD COUNT 17.7 10^3/uL (4.0-10.5)
[2020-04-29] MEDS ORDERED: PIPERACILLIN/TAZOBACTAM 3.375 GM VIAL IV ONE (11:03)
[2020-04-29] MEDS ORDERED: CEFTRIAXONE 1 GM/D5W RTU 1 GM/50 ML RTUPB IV ONE (11:03)
--- NOTE | 2020-04-29 11:05 | RADIOLOGY REPORT (SQ) ---
EXAM DESCRIPTION: CHEST SINGLE VIEW IMAGES COMPLETED DATE/TIME: 04/29/2020 10:53 am REASON FOR STUDY: 5; sob COMPARISON: Chest films 04/14/2020, 08/01/2019 EXAM PARAMETERS: NUMBER OF VIEWS: One view. TECHNIQUE: Single frontal radiographic view of the chest acquired. RADIATION DOSE: NA LIMITATIONS: None. FINDINGS: LUNGS AND PLEURA: Alysia lines are present from interstitial edema. Pulmonary vascular co ngestion. Mild perihilar alveolar pulmonary edema. Trace bilateral pleural effusions. No pneumothorax MEDIASTINUM AND HILAR STRUCTURES: No masses. Contour normal. HEART AND VASCULAR STRUCTURES: Mild cardiomegaly BONES: No acute findings. HARDWARE: None in the chest. OTHER: No other significant finding. IMPRESSION: Alveolar and interstitial pulmonary edema with trace pleural effusions TECHNICAL DOCUMENTATION: JOB ID: [id number] 2010 [email or web address]- All Rights Reserved Reading location - IP/workstation name: [email or web address]
[2020-04-29 11:09] LABS: INTERNATIONAL RATION (INR) 1.11; PROTHROMBIN TIME 14.5 SEC (11.4-15.4)
[2020-04-29 11:21] LABS: ALBUMIN 3.4 g/dL (3.5-5.0); ALKALINE PHOSPHATASE 74 U/L (38-126); ANION GAP 9 (5-19); ASPARTATE AMINO TRANSFERASE 96 U/L (17-59); BILIRUBIN,DIRECT 0.5 mg/dL (0.0-0.4); BILIRUBIN,TOTAL 1.2 mg/dL (0.2-1.3); BLOOD UREA NITROGEN 31 mg/dL (7-20); CALCIUM 8.5 mg/dL (8.4-10.2); CARBON DIOXIDE 23 mmol/L (22-30); CHLORIDE 105 mmol/L (98-107); GLUCOSE 267 mg/dL (75-110); POTASSIUM 4.6 mmol/L (3.6-5.0); TOTAL PROTEIN 5.9 g/dL (6.3-8.2)
[2020-04-29 11:34] LABS: TROPONIN I 0.185 ng/mL
[2020-04-29] MEDS ORDERED: ASPIRIN 325 MG TABLET PO ONE (11:51)
[2020-04-29] MEDS ORDERED: ONDANSETRON HCL INJ/PF 4 MG/2 ML SDV IV PRN (11:54)
[2020-04-29] MEDS ORDERED: HYDRALAZINE HCL INJ/PF 20 MG/1 ML SDV IV PRN (11:59)
[2020-04-29] MEDS ORDERED: MORPHINE SULFATE 10 MG/ML INJ IV PRN (12:07)
[2020-04-29] MEDS ORDERED: PIPERACILLIN/TAZOBACTAM 3.375 GM VIAL IV SCH (12:15)
--- NOTE | 2020-04-29 12:56 | PDOC H&P ---
History of Present Illness Admission Date/PCP: KENYON ALVARENGA MD Patient complains of: Patient came in with shortness of breath History of Present Illness: JANEY WILSON is a 79 year old male with history of coronary artery disease stent placements in [place] last week, history of aortic stenosis scheduled for wall replacement in [place] on May 24, hypertension, morbid obesity, sleep apnea, COPD was brought to the emergency room by the EMS with hypoxia. Pulse ox in the 60s when he came in. Patient was placed on BiPAP given Lasix 80 mg IV 1 dose started on nitro drip because of the hypertensive emergency. Blood pressure is improved to 130/80. Patient put out a lot of urine. Pulse ox is improved. Patient still on nitro drip troponin is 0.18 and ABG shows pH of 7.19. ER physician Dr. Costello requested for admission IMCU in his opinion patient can be managed in IMCU. Also discussed case with Dr. Hodge and Dr. Iverson is going to manage cardiac issues during this hospital stay. Patient agreed to stay in the hospital and he is a full code. Past Medical History Cardiac Medical History: Reports: Congestive Heart Failure, Hypertension Denies: Coronary Artery Disease, Myocardial Infarction Pulmonary Medical History: Reports: Chronic Obstructive Pulmonary Disease (COPD) Denies: Asthma, Bronchitis, Pneumonia Neurological Medical History: Denies: Seizures Endocrine Medical History: Denies: Diabetes Mellitus Type 1, Diabetes Mellitus Type 2, Hyperthyroidism, Hypothyroidism GI Medical History: Reports: Gastroesophageal Reflux Disease Denies: Cirrhosis, Crohn's Disease, Hepatitis, Ulcerative Colitis Musculoskeltal Medical History: Reports: Arthritis Denies: Gout Skin Medical History: Denies: Eczema, Psoriasis Psychiatric Medical History: Denies: Depression Hematology: Denies: Anemia, Bleeding Tendencies Past Surgical History Past Surgical History: Reports: Cholecystectomy, Other - Stent placement. Social History Smoking Status: Unknown if Ever Smoked Frequency of Alcohol Use: None Hx Recreational Drug Use: No Drugs: None Hx Prescription Drug Abuse: No - Advance Directive Resuscitation Status: Full Code Family History Family History: DM, Hypertension. denies: CAD, Malignancy Parental Family History Reviewed: Yes - Family history of heart disease Children Family History Reviewed: Yes Sibling(s) Family History Reviewed.: Yes Medication/Allergy Home Medications: Albuterol Sulfate [Ventolin 0.083% Neb 2.5 mg/3 mL Ampul] 2.5 mg NEB QID 04/15/20 Clopidogrel Bisulfate [Plavix 75 mg Tablet] 75 mg PO DAILY 04/15/20 Ferrous Sulfate [Ferosul] 325 mg PO TID 04/15/20 Sertraline HCl 25 mg PO QHS 04/15/20 Torsemide [Demadex 20 mg Tablet] 40 mg PO BID 04/15/20 Acetaminophen [Tylenol 325 mg Tablet] 650 mg PO Q4HP PRN tablet 04/17/20 Albuterol Sulfate [Proair HFA Inhalation Aerosol 8.5 gm MDI] 1 puff IH Q4HP PRN #1 hfa.aer.ad 04/17/20 Amoxicillin/Potassium Clav [Augmentin 875-125 Tablet] 1 tab PO BID #20 tab 04/17/20 Prednisone [Deltasone 20 mg Tablet] 60 mg PO DAILY #12 tablet 04/17/20 Allergies/Adverse Reactions: No Known Allergies Allergy (Verified 08/01/19 15:58) Review of Systems Constitutional: ABSENT: fever(s), headache(s), night sweats, weakness Eyes: ABSENT: visual disturbances Ears: ABSENT: hearing changes Nose, Mouth, and Throat: ABSENT: sore throat Cardiovascular: PRESENT: dyspnea on exertion, edema, orthropnea, palpitations Respiratory: PRESENT: dyspnea Gastrointestinal: ABSENT: abdominal pain, constipation, diarrhea, hematemesis, hematochezia, nausea, vomiting Genitourinary: ABSENT: dysuria, hematuria Musculoskeletal: ABSENT: joint swelling Neurological: ABSENT: abnormal gait, abnormal speech, confusion, dizziness, focal weakness, syncope Psychiatric: PRESENT: anxiety Endocrine: ABSENT: cold intolerance, heat intolerance, polydipsia, polyuria Physical Exam Vital Signs: Temp Pulse Resp BP Pulse Ox 98.2 F 14 139/74 H 100 04/29/20 12:17 04/29/20 12:06 04/29/20 12:06 04/29/20 12:06 Intake & Output 04/28/20 04/29/20 04/30/20 06:59 06:59 06:59 Intake Total 17 Balance 17 Weight 119.7 kg General appearance: PRESENT: no acute distress Head exam: PRESENT: atraumatic Eye exam: PRESENT: PERRLA Ear exam: PRESENT: normal external ear exam Teeth exam: PRESENT: poor dentation Neck exam: ABSENT: carotid bruit, JVD, lymphadenopathy, thyromegaly Respiratory exam: PRESENT: decreased breath sounds Cardiovascular exam: PRESENT: RRR. ABSENT: diastolic murmur, rubs, systolic murmur GI/Abdominal exam: PRESENT: normal bowel sounds, soft. ABSENT: distended, guar ding, mass, organolmegaly, rebound, tenderness Rectal exam: PRESENT: deferred Extremities exam: PRESENT: full ROM. ABSENT: calf tenderness, clubbing, pedal edema Neurological exam: PRESENT: alert, awake, oriented to person, oriented to place, oriented to time, oriented to situation, CN II-XII grossly intact. ABSENT: motor sensory deficit Psychiatric exam: PRESENT: appropriate affect, normal mood. ABSENT: homicidal ideation, suicidal ideation Results Laboratory Results: 04/29/20 10:40 04/29/20 10:40 04/29/20 04/29/20 04/29/20 10:40 10:40 10:40 WBC 17.7 H RBC 4.11 L Hgb 10.5 L Hct 33.2 L MCV 81 MCH 25.5 L MCHC 31.6 L RDW 17.6 H Plt Count 283 Seg Neutrophils % 76.4 Carbonic Acid 1.80 H HCO3/H2CO3 Ratio 12:1 ABG pH 7.19 L* ABG pCO2 59.9 H ABG pO2 458.3 H ABG HCO3 22.3 ABG O2 Saturation 99.8 H ABG Base Excess -6.3 FiO2 100% Sodium 137.2 Potassium 4.6 Chloride 105 Carbon Dioxide 23 Anion Gap 9 BUN 31 H Creatinine 1.73 H Est GFR ( Amer) 46 L Glucose 267 H Lactic Acid Calcium 8.5 Total Bilirubin 1.2 AST 96 H Alkaline Phosphatase 74 Total Protein 5.9 L Albumin 3.4 L 04/29/20 11:15 WBC RBC Hgb Hct MCV MCH MCHC RDW Plt Count Seg Neutrophils % Carbonic Acid HCO3/H2CO3 Ratio ABG pH ABG pCO2 ABG pO2 ABG HCO3 ABG O2 Saturation ABG Base Excess FiO2 Sodium Potassium Chloride Carbon Dioxide Anion Gap BUN Creatinine Est GFR ( Amer) Glucose Lactic Acid 1.5 Calcium Total Bilirubin AST Alkaline Phosphatase Total Protein Albumin 04/29/20 10:40 Troponin I 0.185 NT-Pro-B Natriuret Pep 29949 H Impressions: Chest X-Ray 04/29/20 10:34 IMPRESSION: Alveolar and interstitial pulmonary edema with trace pleural effusions Assessment and Plan - Diagnosis (1) Acute respiratory failure, unspecified whether with hypoxia or hypercapnia Qualifiers: Respiratory failure complication: hypoxia Qualified Code(s): J96.01 - Acute respiratory failure with hypoxia Is this a current diagnosis for this admission?: Yes Plan: 04/29/2020-patient is going to be admitted to [facility] for acute on chronic respiratory failure with hypoxia and hypercapnia. Continue CPAP at night. To continue nebulizer treatments. To continue oxygen supplementations. Most likely secondary to acute on chronic diastolic heart failure. (2) Flash pulmonary edema Is this a current diagnosis for this admission?: Yes Plan: 04/29/2020-came in with severe hypoxia requiring BiPAP, chest x-ray indicated of pulmonary edema and a hypertensive emergency. Patient received 80 mg IV Lasix and he is feeling much better at the time of my examination. Plan is to continue Lasix 40 mg IV every 8 hours. (3) Hypertensive emergency Is this a current diagnosis for this admission?: Yes Plan: 04/29/2020-patient came in with systolic blood pressure of 230 started on nitro drip and received IV Lasix 80 mg 1 dose. Latest blood pressure is 130/88. To continue nitro drip and started on IV hydralazine 10 mg every 4 hours as needed for sutured blood pressure more than 170. Started on lisinopril at this time. Patient taking torsemide at home to be on hold. (4) Chronic diastolic congestive heart failure Is this a current diagnosis for this admission?: Yes Plan: 04/29/2020-recent echocardiogram shows EF of 60% with moderate aortic stenosis and grade 1/grade 4 diastolic heart failure. Started on Lasix 40 mg IV every 8 hours. (5) Aortic stenosis Is this a current diagnosis for this admission?: No Plan: 04/29/2020-patient has history of moderate aortic stenosis as per the patient he is scheduled to go to [place] for valve replacement on May 24. (6) CAD (coronary artery disease) Is this a current diagnosis for this admission?: No Plan: 04/29/2020-patient has history of coronary artery disease status post stent placements in [place] last week. Started on treatment dose of Lovenox, aspirin and atorvastatin. Troponin is will be trended. (7) Obesity (BMI 30-39.9) Is this a current diagnosis for this admission?: No Plan: 04/29/2020-patient BMI is more than 36 diet exercise weight loss lifestyle modifications discussed with the patient. - Time Anticipated Discharge Disposition: Home with Home Health Anticipated Discharge Timeframe: within 72 hours
--- NOTE | 2020-04-29 13:23 | RADIOLOGY REPORT (SQ) ---
EXAM DESCRIPTION: CT CHEST WITHOUT IMAGES COMPLETED DATE/TIME: 04/29/2020 1:06 pm REASON FOR STUDY: chf/dyspnea COMPARISON: Chest films 07/30/2016, 08/01/2019, 04/14/2020 TECHNIQUE: CT scan performed of the chest without intravenous contrast. Images reviewed with lung, soft tissue and bone windows. Reconstructed coronal and sagittal MPR images reviewed. All images st ored on PACS. All CT scanners at this facility use dose modulation, iterative reconstruction, and/or weight based d osing when appropriate to reduce radiation dose to as low as reasonably achievable (ALARA). [facility]: Dose Right [facility]: CareDose [facility]: Dose Right [facility]: Teradose 4D [facility]: [employer] RADIATION DOSE: CT Rad equipment meets quality standard of care and radiation dose reduction techniq ues were employed. CTDIvol: 21.1 mGy. DLP: 828 mGy-cm. mGy. LIMITATIONS: No technical limitations. FINDINGS: LUNGS AND PLEURA: Moderate right, trace left pleural effusions. There is diffuse alveolar and interstitial edema throughout the right lung, with consolidation in the right posterior costophrenic sulcus atelectasis versus pneumonia. Few thickened interlobular septa with minimal alveolar edema left lung. HILAR AND MEDIASTINAL STRUCTURES: Sub- carinal 2.8 x 1.4 cm lymph node axial image 29 HEART AND VASCULAR STRUCTURES: Very densely calcified aortic valve on coronal images 29-34, clinicall y significant aortic stenosis may be present. UPPER ABDOMEN: No significant findings. Limited exam. THYROID AND OTHER SOFT TISSUES: No masses. No adenopathy. BONES: No significant finding. HARDWARE: None in the chest. OTHER: No other significant findings. IMPRESSION: Bilateral alveolar and interstitial pulmonary edema right greater than left Bilateral pleural effusions right greater than left Very heavily calcified aortic valve, suspect clinically significant aortic stenosis TECHNICAL DOCUMENTATION: JOB ID: [id number] Quality ID # [id number]: Final reports with documentation of one or more dose reduction techniques (e.g., Au tomated exposure control, adjustment of the mA and/or kV according to patient size, use of iterative reconstruction technique) 2010 [employer]- All Rights Reserved Reading location - IP/workstation name: [email or web address]
[2020-04-29] MEDS ORDERED: HEPARIN SOD (PORCINE) 5,000 UNIT/ML 1 ML VIAL SUBCUT SCH (14:00)
[2020-04-29 14:29] LABS: ARTERIAL BLOOD BASE EXCESS -3.7 mmol/L; ARTERIAL BLOOD FIO2 30%; ARTERIAL BLOOD H2CO3 1.08 mmol/L (1.05-1.35); ARTERIAL BLOOD HCO3 20.9 mmol/L (20-24); ARTERIAL BLOOD O2 SATURATION 97.8 % (94-98); ARTERIAL BLOOD PCO2 35.9 mmHg (35-45); ARTERIAL BLOOD PH 7.38 (7.35-7.45); ARTERIAL BLOOD PO2 104.9 mmHg (80-100)
[2020-04-29 14:46] LABS: APPEARANCE,URINE CLEAR; BILIRUBIN,URINE NEGATIVE (NEGATIVE); COLOR,URINE STRAW; GLUCOSE, URINE NEGATIVE (NEGATIVE); KETONES,URINE NEGATIVE (NEGATIVE); LEUKOCYTE ESTERASE,URINE NEGATIVE (NEGATIVE); NITRITE,URINE NEGATIVE (NEGATIVE); PROTEIN,URINE 30 mg/dL (NEGATIVE); URINE SPECIFIC GRAVITY 1.006; UROBILINOGEN,URINE NEGATIVE mg/dL (<2.0)
[2020-04-29 14:48] LABS: URINE AMPHETAMINES SCREEN NEGATIVE; URINE BARBITURATES SCREEN NEGATIVE; URINE BENZODIAZEPINES SCREEN NEGATIVE; URINE COCAINE SCREEN NEGATIVE; URINE MARIJUANA (THC) SCREEN NEGATIVE; URINE METHADONE SCREEN NEGATIVE; URINE PHENCYCLIDINE SCREEN NEGATIVE
--- NOTE | 2020-04-29 15:50 | PDOC CONSULTATION ---
Consultation Consult Date: 04/29/20 Attending physician:: KANDACE MOSQUERA Provider Consulted: CHIKIS PRUITT Consult reason:: HF History of Present Illness Admission Date/PCP: 04/29/20 12:20 KENYON ALVARENGA MD History of Present Illness: JANEY WILSON is a 79 year old male with history of coronary artery disease status post implantation of 3 drug-eluting stents in the mid and distal RCA on 03/16/2020, heart failure with preserved ejection fraction, severe aortic stenosis scheduled to undergo TAVR at [facility] on 24 May 2020, morbid obesity, COPD, hypertension who is consulted to our service for evaluation of heart failure. The patient was brought to the emergency room by the EMS with hypoxia. Pulse ox in the 60s when he came in. Patient was placed on BiPAP given Lasix 80 mg IV 1 dose started on nitro drip because of his systolic blood pressure of 100. He was eventually placed on BiPAP. Upon further questioning, the patient states that he had not been taking his Lasix as prescribed in the outpatient setting due to issues with his pharmacy. He is currently on BiPAP and sitting up in his bed feeling much better. Physical exam on 04/29/2020: GENERAL: Sitting up at the edge of the bed tolerating BiPAP. Oriented x3 with normal mood. Disheveled. HEENT: Normocephalic, atraumatic. Pupils equal. Sclerae anicteric. Oropharynx moist. NECK: Mild JVD. No carotid bruits. LUNGS: Decreased breath sounds bilaterally with mild crackles at both bases. CARDIOVASCULAR: Regular rate and rhythm, normal S1 and S2 without murmurs, rubs, or gallops. PMI not displaced. EXTREMITIES: 3+ pitting edema bilaterally, no cyanosis, no clubbing. +2 pulses femoral and pedal pulses bilaterally. SKIN: Erythema with mild weeping bilaterally. MUSCULOSKELETAL: No chest tenderness to palpation. NEUROLOGIC: Nonfocal. No gross sensory or motor deficits bilateral upper or lower extremities. Past Medical History Cardiac Medical History: Reports: Congestive Heart Failure, Hypertension Denies: Coronary Artery Disease, Myocardial Infarction Pulmonary Medical History: Reports: Chronic Obstructive Pulmonary Disease (COPD) Denies: Asthma, Bronchitis, Pneumonia Neurological Medical History: Denies: Seizures Endocrine Medical History: Denies: Diabetes Mellitus Type 1, Diabetes Mellitus Type 2, Hyperthyroidism, Hypothyroidism GI Medical History: Reports: Gastroesophageal Reflux Disease Denies: Cirrhosis, Crohn's Disease, Hepatitis, Ulcerative Colitis Musculoskeltal Medical History: Reports: Arthritis Denies: Gout Skin Medical History: Denies: Eczema, Psoriasis Psychiatric Medical History: Denies: Depression Hematology: Denies: Anemia, Bleeding Tendencies Past Surgical History Past Surgical History: Reports: Cholecystectomy, Other - Stent placement. Social History Smoking Status: Unknown if Ever Smoked Frequency of Alcohol Use: None Hx Recreational Drug Use: No Drugs: None Hx Prescription Drug Abuse: No - Advance Directive Resuscitation Status: Full Code Family History Family History: DM, Hypertension. denies: CAD, Malignancy Parental Family History Reviewed: Yes Children Family History Reviewed: Yes Sibling(s) Family History Reviewed.: Yes Medication/Allergy Home Medications: Albuterol Sulfate [Ventolin 0.083% Neb 2.5 mg/3 mL Ampul] 2.5 mg NEB QID 04/15/20 Clopidogrel Bisulfate [Plavix 75 mg Tablet] 75 mg PO DAILY 04/15/20 Ferrous Sulfate [Ferosul] 325 mg PO TID 04/15/20 Sertraline HCl 25 mg PO QHS 04/15/20 Torsemide [Demadex 20 mg Tablet] 40 mg PO BID 04/15/20 Albuterol Sulfate [Proair HFA Inhalation Aerosol 8.5 gm MDI] 1 puff IH Q4HP PRN #1 [email or web address] 04/17/20 Amoxicillin/Potassium Clav [Augmentin 875-125 Tablet] 1 tab PO BID #20 tab 04/17/20 Prednisone [Deltasone 20 mg Tablet] 60 mg PO DAILY #12 tablet 04/17/20 Acetaminophen [Acetaminophen Extra Strength] 1,000 mg PO DAILYP PRN 04/29/20 Furosemide [Lasix 40 mg Tablet] 40 mg PO BID 04/29/20 Hydralazine HCl [Apresoline 50 mg Tablet] 50 mg PO BID 04/29/20 Montelukast Sodium [Singulair 10 mg Tablet] 10 mg PO DAILY 04/29/20 Nebivolol HCl [Bystolic] 20 mg PO DAILY 04/29/20 Allergies/Adverse Reactions: No Known Allergies Allergy (Verified 08/01/19 15:58) Physical Exam Vital Signs: Temp Pulse Resp BP Pulse Ox 97.5 F 68 20 150/55 H 96 04/29/20 14:52 04/29/20 14:52 04/29/20 14:52 04/29/20 14:52 04/29/20 14:52 Intake & Output 04/28/20 04/29/20 04/30/20 06:59 06:59 06:59 Intake Total 67 Balance 67 Weight 119.5 kg Results Laboratory Results: 04/29/20 10:40 04/29/20 10:40 04/29/20 04/29/20 04/29/20 10:40 10:40 10:40 WBC 17.7 H RBC 4.11 L Hgb 10.5 L Hct 33.2 L MCV 81 MCH 25.5 L MCHC 31.6 L RDW 17.6 H Plt Count 283 Seg Neutrophils % 76.4 Carbonic Acid 1.80 H HCO3/H2CO3 Ratio 12:1 ABG pH 7.19 L* ABG pCO2 59.9 H ABG pO2 458.3 H ABG HCO3 22.3 ABG O2 Saturation 99.8 H ABG Base Excess -6.3 FiO2 100% Sodium 137.2 Potassium 4.6 Chloride 105 Carbon Dioxide 23 Anion Gap 9 BUN 31 H Creatinine 1.73 H Est GFR ( Amer) 46 L Glucose 267 H Lactic Acid Calcium 8.5 Total Bilirubin 1.2 AST 96 H Alkaline Phosphatase 74 Total Protein 5.9 L Albumin 3.4 L Urine Color Urine Appearance Urine pH Ur Specific [place] Urine Protein Urine Glucose (UA) Urine Ketones Urine Blood Urine Nitrite Ur Leukocyte Esterase Urine WBC (Auto) Urine RBC (Auto) 04/29/20 04/29/20 04/29/20 11:15 13:35 14:10 WBC RBC Hgb Hct MCV MCH MCHC RDW Plt Count Seg Neutrophils % Carbonic Acid 1.08 HCO3/H2CO3 Ratio 19:1 ABG pH 7.38 ABG pCO2 35.9 ABG pO2 104.9 H ABG HCO3 20.9 ABG O2 Saturation 97.8 ABG Base Excess -3.7 FiO2 30% Sodium Potassium Chloride Carbon Dioxide Anion Gap BUN Creatinine Est GFR ( Amer) Glucose Lactic Acid 1.5 Calcium Total Bilirubin AST Alkaline Phosphatase Total Protein Albumin Urine Color STRAW Urine Appearance CLEAR Urine pH 5.0 Ur Specific [place] 1.006 Urine Protein 30 H Urine Glucose (UA) NEGATIVE Urine Ketones NEGATIVE Urine Blood SMALL H Urine Nitrite NEGATIVE Ur Leukocyte Esterase NEGATIVE Urine WBC (Auto) 1 Urine RBC (Auto) 1 04/29/20 10:40 Troponin I 0.185 NT-Pro-B Natriuret Pep 25797 H Impressions: Chest CT 04/29/20 00:00 IMPRESSION: Bilateral alveolar and interstitial pulmonary edema right greater than left Bilateral pleural effusions right greater than left Very heavily calcified aortic valve, suspect clinically significant aortic stenosis Chest X-Ray 04/29/20 10:34 IMPRESSION: Alveolar and interstitial pulmonary edema with trace pleural effusions 04/29/20 10:40 04/29/20 10:40 MCV 81 fl (80-97) 04/29/20 10:40 MCH 25.5 pg (27.0-33.4) L 04/29/20 10:40 MCHC 31.6 g/dL (32.0-36.0) L 04/29/20 10:40 RDW 17.6 % (11.5-14.0) H 04/29/20 10:40 Seg Neutrophils % 76.4 % (42-78) 04/29/20 10:40 Carbonic Acid 1.08 mmol/L (1.05-1.35) 04/29/20 13:35 HCO3/H2CO3 Ratio 19:1 04/29/20 13:35 ABG pH 7.38 (7.35-7.45) 04/29/20 13:35 ABG pCO2 35.9 mmHg (35-45) 04/29/20 13:35 ABG pO2 104.9 mmHg (80-100) H 04/29/20 13:35 ABG HCO3 20.9 mmol/L (20-24) 04/29/20 13:35 ABG O2 Saturation 97.8 % (94-98) 04/29/20 13:35 ABG Base Excess -3.7 mmol/L 04/29/20 13:35 FiO2 30% 04/29/20 13:35 Chloride 105 mmol/L (98-107) 04/29/20 10:40 Carbon Dioxide 23 mmol/L (22-30) 04/29/20 10:40 Anion Gap 9 (5-19) 04/29/20 10:40 Est GFR ( Amer) 46 (>60) L 04/29/20 10:40 Glucose 267 mg/dL (75-110) H 04/29/20 10:40 Lactic Acid 1.5 mmol/L (0.7-2.1) 04/29/20 11:15 Calcium 8.5 mg/dL (8.4-10.2) 04/29/20 10:40 Total Bilirubin 1.2 mg/dL (0.2-1.3) 04/29/20 10:40 AST 96 U/L (17-59) H 04/29/20 10:40 Alkaline Phosphatase 74 U/L (38-126) 04/29/20 10:40 Total Protein 5.9 g/dL (6.3-8.2) L 04/29/20 10:40 Albumin 3.4 g/dL (3.5-5.0) L 04/29/20 10:40 Urine Color STRAW 04/29/20 14:10 Urine Appearance CLEAR 04/29/20 14:10 Urine pH 5.0 (5.0-9.0) 04/29/20 14:10 Ur Specific [place] 1.006 04/29/20 14:10 Urine Protein 30 mg/dL (NEGATIVE) H 04/29/20 14:10 Urine Glucose (UA) NEGATIVE mg/dL (NEGATIVE) 04/29/20 14:10 Urine Ketones NEGATIVE mg/dL (NEGATIVE) 04/29/20 14:10 Urine Blood SMALL (NEGATIVE) H 04/29/20 14:10 Urine Nitrite NEGATIVE (NEGATIVE) 04/29/20 14:10 Ur Leukocyte Esterase NEGATIVE (NEGATIVE) 04/29/20 14:10 Urine WBC (Auto) 1 /HPF 04/29/20 14:10 Urine RBC (Auto) 1 /HPF 04/29/20 14:10 04/29/20 10:40 Troponin I 0.185 NT-Pro-B Natriuret Pep 14329 H Current Medication List Generic Name Dose Route Start Last Admin Trade Name Freq PRN Reason Stop Dose Admin Atorvastatin Calcium 20 mg 04/29/20 22:00 Lipitor 20 Mg Tablet PO 05/29/20 21:59 QHS [facility] Enoxaparin Sodium 120 mg 04/29/20 22:00 Lovenox Inj 120 Mg/0.8 Ml Disp.Syrin SUBCUT 05/29/20 21:59 Q12 JANEEN Furosemide 40 mg 04/29/20 22:00 Lasix Inj/Pf 40 Mg/4 Ml Sdv IV 05/29/20 21:59 Q8 JANEEN Hydralazine HCl 10 mg 04/29/20 11:59 Apresoline Inj/Pf 20 Mg/1 Ml Sdv IV 05/29/20 11:58 Q4HP PRN GIVE FOR SBP > 170 Piperacillin Sod/Tazobactam 100 mls @ 200 mls/hr 04/29/20 18:00 Sod 3.375 gm/ Sodium Chloride IV 05/06/20 17:59 Q6 JANEEN Losartan Potassium 25 mg 04/30/20 10:00 Cozaar 25 Mg Tablet PO 05/30/20 09:59 DAILY JANEEN Morphine Sulfate 1 mg 04/29/20 12:07 Morphine 10 Mg/Ml Inj IV 05/06/20 12:06 Q4HP PRN FOR CHEST PAIN Ondansetron HCl 4 mg 04/29/20 11:54 Zofran Inj/Pf 4 Mg/2 Ml Sdv IV 05/29/20 11:53 Q8HP PRN FOR NAUSEA/VOMITING Pantoprazole Sodium 20 mg 04/30/20 06:[address] Tablet PO 05/30/20 05:59 Q6AM [facility] Sodium Chloride 2.5 ml 04/29/20 14:00 Saline Flush 2.5 Ml Monoject Prefil Syrin IV 05/29/20 13:59 Q8 [facility] Discontinued Medications Generic Name Dose Route Start Last Admin Trade Name Freq PRN Reason Stop Dose Admin Albuterol/Ipratropium Confirm 04/29/20 10:32 04/29/20 11:41 Duoneb 3 Ml Ampul Administered 04/29/20 10:33 Not Given Dose 3 ml NEB .STK-MED ONE Albuterol/Ipratropium Confirm 04/29/20 10:33 04/29/20 11:41 Duoneb 3 Ml Ampul Administered 04/29/20 10:34 Not Given Dose 3 ml NEB .STK-MED ONE Albuterol/Ipratropium 6 ml 04/29/20 11:40 04/29/20 10:35 Duoneb 3 Ml Ampul NEB 04/29/20 11:41 6 ml NOW ONE Administration Aspirin 325 mg 04/29/20 11:51 04/29/20 12:40 Aspirin 325 Mg Tablet PO 04/29/20 11:52 325 mg NOW ONE Administration Furosemide 80 mg 04/29/20 10:51 04/29/20 11:54 Lasix Inj/Pf 40 Mg/4 Ml Sdv IV 04/29/20 10:52 80 mg NOW ONE Administration Heparin Sodium (Porcine) 5,000 unit 04/29/20 14:00 Heparin Inj 5,000 Units/Ml 1 Ml Vial SUBCUT 05/29/20 13:59 Q8 [facility] Nitroglycerin/Dextrose 50 mg in 250 mls @ 0 mls/hr 04/29/20 10:35 04/29/20 11:58 Ntg Rtu 50 Mg/D5w 250 Ml Iv Premix Bottle IV 05/29/20 10:34 0 mcg/min CONTINUOUS PRN 0 mls/hr THIS MED IS NOT "PRN" Titration Protocol Titrate Ceftriaxone Sodium/Dextrose 1 gm in 50 mls @ 100 mls/hr 04/29/20 11:03 04/29/20 12:30 Rocephin Rtu 1 Gm/D5w 50 Ml Premix IV 04/29/20 11:32 Infused NOW ONE Infusion Nitroglycerin/Dextrose 50 mg in 250 mls @ 0 mls/hr 04/29/20 12:12 Ntg Rtu 50 Mg/D5w 250 Ml Iv Premix Bottle IV 05/29/20 12:11 CONTINUOUS PRN THIS MED IS NOT "PRN" Protocol Titrate Piperacillin Sod/Tazobactam Sod 3.375 gm 04/29/20 11:03 04/29/20 11:54 Zosyn Inj 3.375 Gm Vial IV 04/29/20 11:04 3.375 gm IVBAG (ED) ONE Administration Piperacillin Sod/Tazobactam Sod 3.375 gm 04/29/20 12:15 04/29/20 12:21 Zosyn Inj 3.375 Gm Vial IV 05/06/20 12:14 Not Given Q6H [facility] Assessment & Plan - Diagnosis (1) Flash pulmonary edema Is this a current diagnosis for this admission?: Yes Plan: Secondary to heart failure. This is at least his third hospitalization for heart failure and is currently secondary to his hypertensive emergency along with noncompliance with Lasix. He received 1 dose of Lasix 80 mg IV in the emergency room and apparently had an excellent urinary output however I cannot find documentation of how much urine he put out. He still has evidence of fluid overload and we will continue to diurese him. Given his severe aortic stenosis which could be contributing to his heart failure exacerbations in the past and the fact that he is scheduled to undergo TAVR at [facility] I believe the best course of action would be to transfer her to [place] for further miriam luation, treatment and expedited TAVR. (2) CAD (coronary artery disease) Qualifiers: Coronary Disease-Associated Artery/Lesion type: bois forte artery Is this a current diagnosis for this admission?: Yes Plan: The patient is status post placement of 3 drug-eluting stents to the mid RCA and distal RCA on 03/16/2020. He denies ischemic symptoms and his mildly elevated troponin is likely multifactorial to include his hypertensive emergency, demand supply mismatch, renal insufficiency among others. We will continue him on his outpatient medical regimen to include DAPT. (3) Aortic stenosis Qualifiers: Cardiac valve disease etiology: nonrheumatic Qualified Code(s): I35.0 - Nonrheumatic aortic (valve) stenosis Is this a current diagnosis for this admission?: Yes Plan: The patient has known severe aortic stenosis and is scheduled to undergo TAVR at [facility] on 05/24/2020. Given his frequent heart failure exacerbations we will attempt to transfer him to [facility] for further management and perhaps expedited TAVR. (4) Hypertensive emergency Is this a current diagnosis for this admission?: Yes Plan: His blood pressure is better controlled. We will continue with current management for now and we will restart his outpatient regimen.
[2020-04-29] MEDS ORDERED: (PENDING PHARMACY ID) (Albuterol Sulfate 1 PUFF) IH PRN (16:17)
[2020-04-29] MEDS ORDERED: (PENDING PHARMACY ID) (Acetaminophen [Acetaminophen Extra Strength] 1,000 MG) PO PRN (16:17)
--- NOTE | 2020-04-29 16:19 | Progress Note ---
Provider Note Provider Note: The patient had been accepted at [facility]. The accepting physician is Dr. Bunn. Unfortunately they don't have an intermediate care bed but I was instructed to call Jane at the Transfer Center at [phone] to check on the be status. In the meantime, we will continue diuresing the patient as tolerated by his BP and renal function. At this point and, given his CAD and aortic stenosis, will tolerate a systolic BP between 130 and 140 mmHg.
[2020-04-29] MEDS ORDERED: ALBUTEROL SULFATE HFA (90 MCG/PUFF) 200 PUFF/8.5 GM MDI IH PRN (16:23)
[2020-04-29] MEDS ORDERED: ACETAMINOPHEN 325 MG TABLET PO PRN (16:25)
--- NOTE | 2020-04-29 16:27 | PDOC TRANSFER SUMMARY ---
General Admission Date/PCP: 04/29/20 12:20 KENYON ALVARENGA MD Resuscitation Status: Full Code - Transfer Diagnosis (1) Acute respiratory failure, unspecified whether with hypoxia or hypercapnia Is this a current diagnosis for this admission?: Yes (2) Flash pulmonary edema Is this a current diagnosis for this admission?: Yes (3) Hypertensive emergency Is this a current diagnosis for this admission?: Yes (4) Chronic diastolic congestive heart failure Is this a current diagnosis for this admission?: Yes (5) Aortic stenosis Is this a current diagnosis for this admission?: Yes (6) CAD (coronary artery disease) Is this a current diagnosis for this admission?: Yes (7) Obesity (BMI 30-39.9) Is this a current diagnosis for this admission?: No - Transfer Medications Home Medications: Albuterol Sulfate [Ventolin 0.083% Neb 2.5 mg/3 mL Ampul] 2.5 mg NEB QID 04/15/20 Clopidogrel Bisulfate [Plavix 75 mg Tablet] 75 mg PO DAILY 04/15/20 Ferrous Sulfate [Ferosul] 325 mg PO TID 04/15/20 Sertraline HCl 25 mg PO QHS 04/15/20 Torsemide [Demadex 20 mg Tablet] 40 mg PO BID 04/15/20 Acetaminophen [Acetaminophen Extra Strength] 1,000 mg PO DAILYP PRN 04/29/20 Furosemide [Lasix 40 mg Tablet] 40 mg PO BID 04/29/20 Hydralazine HCl [Apresoline 50 mg Tablet] 50 mg PO BID 04/29/20 Montelukast Sodium [Singulair 10 mg Tablet] 10 mg PO DAILY 04/29/20 Nebivolol HCl [Bystolic] 20 mg PO DAILY 04/29/20 Transfer Medications: Current Medications Albuterol (Ventolin 0.083% Neb 2.5 Mg/3 Ml Ampul) 2.5 mg NEB RTQID JANEEN Stop: 05/29/20 19:59 Atorvastatin Calcium (Lipitor 20 Mg Tablet) 20 mg PO QHS JANEEN Stop: 05/29/20 21:59 Clopidogrel Bisulfate (Plavix 75 Mg Tablet) 75 mg PO DAILY JANEEN Stop: 05/30/20 09:59 Enoxaparin Sodium (Lovenox Inj 120 Mg/0.8 Ml Disp.Syrin) 120 mg SUBCUT Q12 JANEEN Stop: 05/29/20 21:59 Ferrous Sulfate (Feosol 325 Mg Tablet) 325 mg PO TID [facility] Stop: 05/29/20 17:59 Furosemide (Lasix Inj/Pf 40 Mg/4 Ml Sdv) 40 mg IV Q8 [facility] Stop: 05/29/20 21:59 Hydralazine HCl (Apresoline Inj/Pf 20 Mg/1 Ml Sdv) 10 mg IV Q4HP PRN PRN Reason: GIVE FOR SBP > 170 Stop: 05/29/20 11:58 Piperacillin Sod/Tazobactam (Sod 3.375 gm/ Sodium Chloride) 100 mls @ 200 mls/hr IV Q6 [facility] Stop: 05/06/20 17:59 Losartan Potassium (Cozaar 25 Mg Tablet) 25 mg PO DAILY [facility] Stop: 05/30/20 09:59 Montelukast Sodium (Singulair 10 Mg Tablet) 10 mg PO QHS [facility] Stop: 05/29/20 21:59 Morphine Sulfate (Morphine 10 Mg/Ml Inj) 1 mg IV Q4HP PRN PRN Reason: FOR CHEST PAIN Stop: 05/06/20 12:06 Ondansetron HCl (Zofran Inj/Pf 4 Mg/2 Ml Sdv) 4 mg IV Q8HP PRN PRN Reason: FOR NAUSEA/VOMITING Stop: 05/29/20 11:53 Pantoprazole Sodium (Protonix [address] Tablet) 20 mg PO Q6AM [facility] Stop: 05/30/20 05:59 Patient Own Medication (Albuterol Sulfate) 1 puff IH Q4HP PRN PRN Reason: shortness of breath, wheezing Patient Own Medication (Acetaminophen [Acetaminophen Extra Strength]) 1,000 mg PO DAILYP PRN PRN Reason: FOR PAIN Patient Own Medication (Nebivolol Hcl [Bystolic]) 20 mg PO DAILY [facility] Stop: 05/30/20 09:59 Sertraline HCl (Zoloft 50 Mg Tablet) 25 mg PO QHS [facility] Stop: 05/29/20 21:59 Sodium Chloride (Saline Flush 2.5 Ml Monoject Prefil Syrin) 2.5 ml IV Q8 [facility] Stop: 05/29/20 13:59 - Allergies Allergies/Adverse Reactions: No Known Allergies Allergy (Verified 08/01/19 15:58) Hospital Course Hospital Course: (1) Acute respiratory failure, unspecified whether with hypoxia or hypercapnia Qualifiers: Respiratory failure complication: hypoxia Qualified Code(s): J96.01 - Acute respiratory failure with hypoxia Is this a current diagnosis for this admission?: Yes Plan: 04/29/2020-patient is going to be admitted to [facility] for acute on chronic respiratory failure with hypoxia and hypercapnia. Continue CPAP at night. To continue nebulizer treatments. To continue oxygen supplementations. Most lik aamir secondary to acute on chronic diastolic heart failure. (2) Flash pulmonary edema Is this a current diagnosis for this admission?: Yes Plan: 04/29/2020-came in with severe hypoxia requiring BiPAP, chest x-ray indicated of pulmonary edema and a hypertensive emergency. Patient received 80 mg IV Lasix and he is feeling much better at the time of my examination. Plan is to continue Lasix 40 mg IV every 8 hours. 04/29/2020-consultation with cardiology was done Dr. Hodge thinks recurrent hospitalization for heart failure most likely secondary to noncompliance with Lasix and also the presence of severe aortic stenosis. Patient was scheduled for TAVR in [place] on of next month. Dr. Hodge called [facility] physician . But they do not have any beds available at this time. (3) Hypertensive emergency Is this a current diagnosis for this admission?: Yes Plan: 04/29/2020-patient came in with systolic blood pressure of 230 started on nitro drip and received IV Lasix 80 mg 1 dose. Latest blood pressure is 130/88. To c ontinue nitro drip and started on IV hydralazine 10 mg every 4 hours as needed for sutured blood pressure more than 170. Started on lisinopril at this time. Patient taking torsemide at home to be on hold. 04/29/2020-4:24 PM latest blood pressure is 130/60 patient is taken off the nitro drip. (4) Chronic diastolic congestive heart failure Is this a current diagnosis for this admission?: Yes Plan: 04/29/2020-recent echocardiogram shows EF of 60% with moderate aortic stenosis and grade 1/grade 4 diastolic heart failure. Started on Lasix 40 mg IV every 8 hours. (5) Aortic stenosis Is this a current diagnosis for this admission?: No Plan: 04/29/2020-patient has history of moderate aortic stenosis as per the patient he is scheduled to go to [place] for valve replacement on May 24. 04/29/2020-4:30 PM patient admitted for third time for heart failure most likely secondary to severe aortic stenosis. Patient was accepted to [place] awaiting the bed availability. (6) CAD (coronary artery disease) Is this a current diagnosis for this admission?: No Plan: 04/29/2020-patient has history of coronary artery disease status post stent placements in [place] last week. Started on treatment dose of Lovenox, aspirin and atorvastatin. Troponin is will be trended. (7) Obesity (BMI 30-39.9) Is this a current diagnosis for this admission?: No Plan: 04/29/2020-patient BMI is more than 36 diet exercise weight loss lifestyle modifications discussed with the patient. - Time Anticipated Discharge Disposition: Home with Home Health Anticipated Discharge Timeframe: within 72 hours Physical Exam Vital Signs: Temp Pulse Resp BP Pulse Ox 97.5 F 68 20 150/55 H 96 04/29/20 14:52 04/29/20 14:52 04/29/20 14:52 04/29/20 14:52 04/29/20 14:52 Intake & Output 04/28/20 04/29/20 04/30/20 06:59 06:59 06:59 Intake Total 67 Balance 67 Weight 119.5 kg General appearance: PRESENT: mild distress, morbidly obese Head exam: PRESENT: atraumatic Eye exam: PRESENT: PERRLA Ear exam: PRESENT: normal external ear exam Mouth exam: PRESENT: neck supple Neck exam: PRESENT: JVD Respiratory exam: PRESENT: crackles, decreased breath sounds Cardiovascular exam: PRESENT: tachycardia GI/Abdominal exam: PRESENT: normal bowel sounds, soft. ABSENT: distended, guarding, mass, organolmegaly, rebound, tenderness Rectal exam: PRESENT: deferred Extremities exam: PRESENT: +2 edema Neurological exam: PRESENT: alert, awake, oriented to person, oriented to place, oriented to time, oriented to situation, CN II-XII grossly intact. ABSENT: motor sensory deficit Results Laboratory Results: 04/29/20 10:40 04/29/20 10:40 04/29/20 04/29/20 04/29/20 10:40 10:40 10:40 WBC 17.7 H RBC 4.11 L Hgb 10.5 L Hct 33.2 L MCV 81 MCH 25.5 L MCHC 31.6 L RDW 17.6 H Plt Count 283 Seg Neutrophils % 76.4 Carbonic Acid 1.80 H HCO3/H2CO3 Ratio 12:1 ABG pH 7.19 L* ABG pCO2 59.9 H ABG pO2 458.3 H ABG HCO3 22.3 ABG O2 Saturation 99.8 H ABG Base Excess -6.3 FiO2 100% Sodium 137.2 Potassium 4.6 Chloride 105 Carbon Dioxide 23 Anion Gap 9 BUN 31 H Creatinine 1.73 H Est GFR ( Amer) 46 L Glucose 267 H Lactic Acid Calcium 8.5 Total Bilirubin 1.2 AST 96 H Alkaline Phosphatase 74 Total Protein 5.9 L Albumin 3.4 L Urine Color Urine Appearance Urine pH Ur Specific [place] Urine Protein Urine Glucose (UA) Urine Ketones Urine Blood Urine Nitrite Ur Leukocyte Esterase Urine WBC (Auto) Urine RBC (Auto) 04/29/20 04/29/20 04/29/20 11:15 13:35 14:10 WBC RBC Hgb Hct MCV MCH MCHC RDW Plt Count Seg Neutrophils % Carbonic Acid 1.08 HCO3/H2CO3 Ratio 19:1 ABG pH 7.38 ABG pCO2 35.9 ABG pO2 104.9 H ABG HCO3 20.9 ABG O2 Saturation 97.8 ABG Base Excess -3.7 FiO2 30% Sodium Potassium Chloride Carbon Dioxide Anion Gap BUN Creatinine Est GFR ( Amer) Glucose Lactic Acid 1.5 Calcium Total Bilirubin AST Alkaline Phosphatase Total Protein Albumin Urine Color STRAW Urine Appearance CLEAR Urine pH 5.0 Ur Specific [place] 1.006 Urine Protein 30 H Urine Glucose (UA) NEGATIVE Urine Ketones NEGATIVE Urine Blood SMALL H Urine Nitrite NEGATIVE Ur Leukocyte Esterase NEGATIVE Urine WBC (Auto) 1 Urine RBC (Auto) 1 04/29/20 04/29/20 10:40 15:45 Creatine Kinase 33 L Troponin I 0.185 NT-Pro-B Natriuret Pep 70762 H Impressions: Chest CT 04/29/20 00:00 IMPRESSION: Bilateral alveolar and interstitial pulmonary edema right greater than left Bilateral pleural effusions right greater than left Very heavily calcified aortic valve, suspect clinically significant aortic stenosis Chest X-Ray 04/29/20 10:34 IMPRESSION: Alveolar and interstitial pulmonary edema with trace pleural effusions
[2020-04-29] MEDS: FERROUS SULFATE 325 MG TABLET PO SCH ×2 (17:31→17:42)
[2020-04-29] MEDS: PIPERACILLIN SODIUM/TAZOBACTAM 3.375 GM in NORMAL SALINE 100 ML IV SCH (17:31)
--- NOTE | 2020-04-29 19:00 | EKG REPORT ---
SEVERITY:- ABNORMAL ECG - SINUS RHYTHM VENTRICULAR TRIGEMINY RIGHT BUNDLE BRANCH BLOCK LVH WITH IVCD AND SECONDARY REPOL ABNRM : Confirmed by: Cira Neil MD 29-Apr-2020 18:59:45
[2020-04-29] MEDS: ENOXAPARIN SODIUM INJ 120 MG/0.8 ML DISP.SYRIN SUBCUT SCH ×2 (21:32→21:40)
[2020-04-29] MEDS: FUROSEMIDE INJ/PF 40 MG/4 ML SDV IV SCH (21:32)
[2020-04-29] MEDS: ALBUTEROL SULFATE 0.083% NEB 2.5 MG/3 ML AMPUL NEB SCH (21:35)
[2020-04-29] MEDS ORDERED: MONTELUKAST SODIUM 10 MG TABLET PO SCH (22:00)
[2020-04-29] MEDS ORDERED: (PENDING PHARMACY ID) (Sertraline Hcl [Sertraline Hcl] 25 MG) PO SCH (22:00)
[2020-04-29] MEDS ORDERED: SERTRALINE HCL 50 MG TABLET PO SCH (22:00)
[2020-04-29] MEDS ORDERED: ATORVASTATIN CALCIUM 20 MG TABLET PO SCH (22:00)
[2020-04-30] MEDS: PIPERACILLIN SODIUM/TAZOBACTAM 3.375 GM in NORMAL SALINE 100 ML IV SCH ×2 (00:13→05:57)
[2020-04-30] MEDS: FUROSEMIDE INJ/PF 40 MG/4 ML SDV IV SCH (05:57)
[2020-04-30] MEDS ORDERED: PANTOPRAZOLE SODIUM 20 MG TABLET.DR PO SCH (06:00)
[2020-04-30 06:28] LABS: ABSOLUTE LYMPHOCYTES (AUTO) 0.6 10^3/uL (0.5-4.7); ABSOLUTE MONOCYTES (AUTO) 0.8 10^3/uL (0.1-1.4); ABSOLUTE NEUT (AUTO) 8.4 10^3/uL (1.7-8.2); HEMOGLOBIN 9.3 g/dL (13.5-17.0); LYMPHOCYTES % (AUTO) 6.1 % (13-45); MEAN CORPUSCULAR HEMOGLOBIN 25.8 pg (27.0-33.4); MEAN CORPUSCULAR HGB CONC 33.1 g/dL (32.0-36.0); MEAN CORPUSCULAR VOLUME 78 fl (80-97); MONOCYTES % (AUTO) 8.3 % (3-13); PLATELET COUNT 166 10^3/uL (150-450); RED BLOOD COUNT 3.59 10^6/uL (4.35-5.55); RED CELL DISTRIBUTION WIDTH 18.2 % (11.5-14.0); SEGMENTED NEUTROPHILS % (AUTO) 85.6 % (42-78); TOTAL CELLS COUNTED % (AUTO) 100 %; WHITE BLOOD COUNT 9.9 10^3/uL (4.0-10.5)
[2020-04-30 07:00] LABS: ALBUMIN 3.2 g/dL (3.5-5.0); ALKALINE PHOSPHATASE 57 U/L (38-126); ANION GAP 9 (5-19); ASPARTATE AMINO TRANSFERASE 29 U/L (17-59); BILIRUBIN,DIRECT 0.4 mg/dL (0.0-0.4); BILIRUBIN,TOTAL 0.8 mg/dL (0.2-1.3); BLOOD UREA NITROGEN 41 mg/dL (7-20); CALCIUM 8.5 mg/dL (8.4-10.2); CARBON DIOXIDE 25 mmol/L (22-30); CHLORIDE 105 mmol/L (98-107); CHOLESTEROL 146.44 mg/dL (0-200); CREATINE KINASE MB 2.56 ng/mL (<4.55); DIRECT LDL 91 mg/dL (<100); GLUCOSE 121 mg/dL (75-110); POTASSIUM 4.2 mmol/L (3.6-5.0); TOTAL PROTEIN 5.5 g/dL (6.3-8.2); TRIGLYCERIDES 72 mg/dL (<150)
--- NOTE | 2020-04-30 08:11 | PDOC PROGRESS REPORT ---
Subjective Progress Note for:: 04/30/20 Subjective:: The patient had an uneventful night and feels 100% better. He diuresed 2.8 L since admission and has not required BiPAP since yesterday evening. He is found sitting at the edge of the bed eating breakfast without any cardiovascular complaints. He states that his shortness of breath is almost completely resolved. Physical exam on 04/30/2020: GENERAL: Pleasant and conversational. Oriented x3 with normal mood. Not in acute distress. Well groomed and well developed. HEENT: Normocephalic, atraumatic. Pupils equal. Sclerae anicteric. Oropharynx moist. NECK: JVD difficult to assess due to his body habitus. No carotid bruits. LUNGS: Very faint crackles at the bases, significantly improved since admission. Normal respiratory effort without the use of accessory muscles or intercostal retractions. CARDIOVASCULAR: Regular rate and rhythm, normal S1 and S2 without murmurs, rubs, or gallops. PMI not displaced. EXTREMITIES: 3+ pitting edema bilaterally, no cyanosis. SKIN: No lesions or rashes. MUSCULOSKELETAL: No chest tenderness to palpation. NEUROLOGIC: Nonfocal. No gross sensory or motor deficits bilateral upper or lower extremities. Reason For Visit: CHF Physical Exam Vital Signs: Temp Pulse Resp BP Pulse Ox 98.5 F 80 19 147/67 H 100 04/30/20 03:36 04/30/20 03:36 04/30/20 03:36 04/30/20 03:36 04/30/20 03:36 Intake & Output 04/29/20 04/30/20 05/01/20 06:59 06:59 06:59 Intake Total 267 Output Total 3075 Balance -2808 Weight 118.6 kg Results Laboratory Results: 04/30/20 05:46 04/30/20 05:46 04/29/20 04/29/20 04/29/20 10:40 10:40 10:40 WBC 17.7 H RBC 4.11 L Hgb 10.5 L Hct 33.2 L MCV 81 MCH 25.5 L MCHC 31.6 L RDW 17.6 H Plt Count 283 Seg Neutrophils % 76.4 Carbonic Acid 1.80 H HCO3/H2CO3 Ratio 12:1 ABG pH 7.19 L* ABG pCO2 59.9 H ABG pO2 458.3 H ABG HCO3 22.3 ABG O2 Saturation 99.8 H ABG Base Excess -6.3 FiO2 100% Sodium 137.2 Potassium 4.6 Chloride 105 Carbon Dioxide 23 Anion Gap 9 BUN 31 H Creatinine 1.73 H Est GFR ( Amer) 46 L Glucose 267 H Lactic Acid Calcium 8.5 Magnesium Total Bilirubin 1.2 AST 96 H Alkaline Phosphatase 74 Total Protein 5.9 L Albumin 3.4 L Triglycerides Cholesterol LDL Cholesterol Direct VLDL Cholesterol HDL Cholesterol Lipase Urine Color Urine Appearance Urine pH Ur Specific [place] Urine Protein Urine Glucose (UA) Urine Ketones Urine Blood Urine Nitrite Ur Leukocyte Esterase Urine WBC (Auto) Urine RBC (Auto) 04/29/20 04/29/20 04/29/20 11:15 13:35 14:10 WBC RBC Hgb Hct MCV MCH MCHC RDW Plt Count Seg Neutrophils % Carbonic Acid 1.08 HCO3/H2CO3 Ratio 19:1 ABG pH 7.38 ABG pCO2 35.9 ABG pO2 104.9 H ABG HCO3 20.9 ABG O2 Saturation 97.8 ABG Base Excess -3.7 FiO2 30% Sodium Potassium Chloride Carbon Dioxide Anion Gap BUN Creatinine Est GFR ( Amer) Glucose Lactic Acid 1.5 Calcium Magnesium Total Bilirubin AST Alkaline Phosphatase Total Protein Albumin Triglycerides Cholesterol LDL Cholesterol Direct VLDL Cholesterol HDL Cholesterol Lipase Urine Color STRAW Urine Appearance CLEAR Urine pH 5.0 Ur Specific [place] 1.006 Urine Protein 30 H Urine Glucose (UA) NEGATIVE Urine Ketones NEGATIVE Urine Blood SMALL H Urine Nitrite NEGATIVE Ur Leukocyte Esterase NEGATIVE Urine WBC (Auto) 1 Urine RBC (Auto) 1 04/30/20 04/30/20 05:46 05:46 WBC 9.9 RBC 3.59 L Hgb 9.3 L Hct 28.0 L MCV 78 L MCH 25.8 L MCHC 33.1 RDW 18.2 H Plt Count 166 Seg Neutrophils % 85.6 H Carbonic Acid HCO3/H2CO3 Ratio ABG pH ABG pCO2 ABG pO2 ABG HCO3 ABG O2 Saturation ABG Base Excess FiO2 Sodium 138.9 Potassium 4.2 Chloride 105 Carbon Dioxide 25 Anion Gap 9 BUN 41 H Creatinine 1.93 H Est GFR ( Amer) 41 L Glucose 121 H Lactic Acid Calcium 8.5 Magnesium 2.1 Total Bilirubin 0.8 AST 29 Alkaline Phosphatase 57 Total Protein 5.5 L Albumin 3.2 L Triglycerides 72 Cholesterol 146.44 LDL Cholesterol Direct 91 VLDL Cholesterol 14.0 HDL Cholesterol 40 Lipase 66.4 Urine Color Urine Appearance Urine pH Ur Specific [place] Urine Protein Urine Glucose (UA) Urine Ketones Urine Blood Urine Nitrite Ur Leukocyte Esterase Urine WBC (Auto) Urine RBC (Auto) 04/29/20 04/29/20 04/29/20 10:40 15:45 15:45 Creatine Kinase 33 L CK-MB (CK-2) Troponin I 0.185 0.273 NT-Pro-B Natriuret Pep [id number] H 04/29/20 04/30/20 20:20 05:46 Creatine Kinase CK-MB (CK-2) 2.78 2.56 Troponin I NT-Pro-B Natriuret Pep [id number] H Impressions: Chest CT 04/29/20 00:00 IMPRESSION: Bilateral alveolar and interstitial pulmonary edema right greater than left Bilateral pleural effusions right greater than left Very heavily calcified aortic valve, suspect clinically significant aortic stenosis Chest X-Ray 04/29/20 10:34 IMPRESSION: Alveolar and interstitial pulmonary edema with trace pleural effusions 04/30/20 05:46 04/30/20 05:46 MCV 78 fl (80-97) L 04/30/20 05:46 MCH 25.8 pg (27.0-33.4) L 04/30/20 05:46 MCHC 33.1 g/dL (32.0-36.0) 04/30/20 05:46 RDW 18.2 % (11.5-14.0) H 04/30/20 05:46 Seg Neutrophils % 85.6 % (42-78) H 04/30/20 05:46 Carbonic Acid 1.08 mmol/L (1.05-1.35) 04/29/20 13:35 HCO3/H2CO3 Ratio 19:1 04/29/20 13:35 ABG pH 7.38 (7.35-7.45) 04/29/20 13:35 ABG pCO2 35.9 mmHg (35-45) 04/29/20 13:35 ABG pO2 104.9 mmHg (80-100) H 04/29/20 13:35 ABG HCO3 20.9 mmol/L (20-24) 04/29/20 13:35 ABG O2 Saturation 97.8 % (94-98) 04/29/20 13:35 ABG Base Excess -3.7 mmol/L 04/29/20 13:35 FiO2 30% 04/29/20 13:35 Chloride 105 mmol/L (98-107) 04/30/20 05:46 Carbon Dioxide 25 mmol/L (22-30) 04/30/20 05:46 Anion Gap 9 (5-19) 04/30/20 05:46 Est GFR ( Amer) 41 (>60) L 04/30/20 05:46 Glucose 121 mg/dL (75-110) H 04/30/20 05:46 Lactic Acid 1.5 mmol/L (0.7-2.1) 04/29/20 11:15 Calcium 8.5 mg/dL (8.4-10.2) 04/30/20 05:46 Magnesium 2.1 mg/dL (1.6-2.3) 04/30/20 05:46 Total Bilirubin 0.8 mg/dL (0.2-1.3) 04/30/20 05:46 AST 29 U/L (17-59) 04/30/20 05:46 Alkaline Phosphatase 57 U/L (38-126) 04/30/20 05:46 Total Protein 5.5 g/dL (6.3-8.2) L 04/30/20 05:46 Albumin 3.2 g/dL (3.5-5.0) L 04/30/20 05:46 Triglycerides 72 mg/dL (<150) 04/30/20 05:46 Cholesterol 146.44 mg/dL (0-200) 04/30/20 05:46 LDL Cholesterol Direct 91 mg/dL (<100) 04/30/20 05:46 VLDL Cholesterol 14.0 mg/dL (10-31) 04/30/20 05:46 HDL Cholesterol 40 mg/dL (>40) 04/30/20 05:46 Lipase 66.4 U/L (23-300) 04/30/20 05:46 TSH 1.03 uIU/mL (0.47-4.68) 04/30/20 05:46 Urine Color STRAW 04/29/20 14:10 Urine Appearance CLEAR 04/29/20 14:10 Urine pH 5.0 (5.0-9.0) 04/29/20 14:10 Ur Specific [place] 1.006 04/29/20 14:10 Urine Protein 30 mg/dL (NEGATIVE) H 04/29/20 14:10 Urine Glucose (UA) NEGATIVE mg/dL (NEGATIVE) 04/29/20 14:10 Urine Ketones NEGATIVE mg/dL (NEGATIVE) 04/29/20 14:10 Urine Blood SMALL (NEGATIVE) H 04/29/20 14:10 Urine Nitrite NEGATIVE (NEGATIVE) 04/29/20 14:10 Ur Leukocyte Esterase NEGATIVE (NEGATIVE) 04/29/20 14:10 Urine WBC (Auto) 1 /HPF 04/29/20 14:10 Urine RBC (Auto) 1 /HPF 04/29/20 14:10 04/29/20 04/29/20 04/29/20 10:40 15:45 15:45 Creatine Kinase 33 L CK-MB (CK-2) Troponin I 0.185 0.273 NT-Pro-B Natriuret Pep [id number] H 04/29/20 04/30/20 20:20 05:46 Creatine Kinase CK-MB (CK-2) 2.78 2.56 Troponin I NT-Pro-B Natriuret Pep [id number] H Current Medication List Generic Name Dose Route Start Last Admin Trade Name Freq PRN Reason Stop Dose Admin Acetaminophen 975 mg 04/29/20 16:25 Tylenol 325 Mg Tablet PO 05/29/20 16:24 DAILYP PRN FOR PAIN Albuterol 2.5 mg 04/29/20 20:00 04/29/20 21:35 Ventolin 0.083% Neb 2.5 Mg/3 Ml Ampul NEB 05/29/20 19:59 2.5 mg RTQID JANEEN Administration Albuterol 1 puff 04/29/20 16:23 Proair Hfa Inhalation Aerosol 8.5 Gm Mdi IH 05/29/20 16:22 Q4HP PRN SHORTNESS OF BREATH Atorvastatin Calcium 20 mg 04/29/20 22:00 04/29/20 21:30 Lipitor 20 Mg Tablet PO 05/29/20 21:59 20 mg QHS JANEEN Administration Clopidogrel Bisulfate 75 mg 04/30/20 10:00 Plavix 75 Mg Tablet PO 05/30/20 09:59 DAILY JANEEN Enoxaparin Sodium 120 mg 04/29/20 22:00 04/29/20 21:40 Lovenox Inj 120 Mg/0.8 Ml Disp.Syrin SUBCUT 05/29/20 21:59 Not Given Q12 JANEEN Ferrous Sulfate 325 mg 04/29/20 18:00 04/29/20 17:42 Feosol 325 Mg Tablet PO 05/29/20 17:59 Not Given TID JANEEN Furosemide 40 mg 04/29/20 22:00 04/30/20 05:57 Lasix Inj/Pf 40 Mg/4 Ml Sdv IV 05/29/20 21:59 40 mg Q8 JANEEN Administration Hydralazine HCl 10 mg 04/29/20 11:59 Apresoline Inj/Pf 20 Mg/1 Ml Sdv IV 05/29/20 11:58 Q4HP PRN GIVE FOR SBP > 170 Piperacillin Sod/Tazobactam 100 mls @ 200 mls/hr 04/29/20 18:00 04/30/20 05 :57 Sod 3.375 gm/ Sodium Chloride IV 05/06/20 17:59 100 mls/hr Q6 JANEEN 100 mls/hr Administration Losartan Potassium 25 mg 04/30/20 10:00 Cozaar 25 Mg Tablet PO 05/30/20 09:59 DAILY [facility] Montelukast Sodium 10 mg 04/29/20 22:00 04/29/20 21:31 Singulair 10 Mg Tablet PO 05/29/20 21:59 10 mg QHS JANEEN Administration Morphine Sulfate 1 mg 04/29/20 12:07 Morphine 10 Mg/Ml Inj IV 05/06/20 12:06 Q4HP PRN FOR CHEST PAIN Nebivolol 20 mg 04/30/20 10:00 Bystolic 10 Mg Tablet PO 05/30/20 09:59 DAILY [facility] Ondansetron HCl 4 mg 04/29/20 11:54 Zofran Inj/Pf 4 Mg/2 Ml Sdv IV 05/29/20 11:53 Q8HP PRN FOR NAUSEA/VOMITING Pantoprazole Sodium 20 mg 04/30/20 06:00 04/30/20 05:[address] Tablet PO 05/30/20 05:59 20 mg Q6AM JANEEN Administration Sertraline HCl 25 mg 04/29/20 22:00 04/29/20 21:31 Zoloft 50 Mg Tablet PO 05/29/20 21:59 25 mg QHS JANEEN Administration Sodium Chloride 2.5 ml 04/29/20 14:00 04/30/20 05:57 Saline Flush 2.5 Ml Monoject Prefil Syrin IV 05/29/20 13:59 2.5 ml Q8 JANEEN Administration Discontinued Medications Generic Name Dose Route Start Last Admin Trade Name Odalys PRN Reason Stop Dose Admin Albuterol/Ipratropium Confirm 04/29/20 10:32 04/29/20 11:41 Duoneb 3 Ml Ampul Administered 04/29/20 10:33 Not Given Dose 3 ml NEB .STK-MED ONE Albuterol/Ipratropium Confirm 04/29/20 10:33 04/29/20 11:41 Duoneb 3 Ml Ampul Administered 04/29/20 10:34 Not Given Dose 3 ml NEB .STK-MED ONE Albuterol/Ipratropium 6 ml 04/29/20 11:40 04/29/20 10:35 Duoneb 3 Ml Ampul NEB 04/29/20 11:41 6 ml NOW ONE Administration Aspirin 325 mg 04/29/20 11:51 04/29/20 12:40 Aspirin 325 Mg Tablet PO 04/29/20 11:52 325 mg NOW ONE Administration Furosemide 80 mg 04/29/20 10:51 04/29/20 11:54 Lasix Inj/Pf 40 Mg/4 Ml Sdv IV 04/29/20 10:52 80 mg NOW ONE Administration Heparin Sodium (Porcine) 5,000 unit 04/29/20 14:00 Heparin Inj 5,000 Units/Ml 1 Ml Vial SUBCUT 05/29/20 13:59 Q8 JANEEN Nitroglycerin/Dextrose 50 mg in 250 mls @ 0 mls/hr 04/29/20 10:35 04/29/20 11:58 Ntg Rtu 50 Mg/D5w 250 Ml Iv Premix Bottle IV 05/29/20 10:34 0 mcg/min CONTINUOUS PRN 0 mls/hr THIS MED IS NOT "PRN" Titration Protocol Titrate Ceftriaxone Sodium/Dextrose 1 gm in 50 mls @ 100 mls/hr 04/29/20 11:03 04/29/20 12:30 Rocephin Rtu 1 Gm/D5w 50 Ml Premix IV 04/29/20 11:32 Infused NOW ONE Infusion Nitroglycerin/Dextrose 50 mg in 250 mls @ 0 mls/hr 04/29/20 12:12 Ntg Rtu 50 Mg/D5w 250 Ml Iv Premix Bottle IV 05/29/20 12:11 CONTINUOUS PRN THIS MED IS NOT "PRN" Protocol Titrate Piperacillin Sod/Tazobactam Sod 3.375 gm 04/29/20 11:03 04/29/20 11:54 Zosyn Inj 3.375 Gm Vial IV 04/29/20 11:04 3.375 gm IVBAG (ED) ONE Administration Piperacillin Sod/Tazobactam Sod 3.375 gm 04/29/20 12:15 04/29/20 12:21 Zosyn Inj 3.375 Gm Vial IV 05/06/20 12:14 Not Given Q6H [facility] Assessment & Plan - Diagnosis (1) Flash pulmonary edema Is this a current diagnosis for this admission?: Yes Plan: The patient is 100% improved after diuresing 2.8 L. His creatinine did bump a little bit. He is due to get transferred to [facility]. We will continue with the current management until he is transferred. (2) CAD (coronary artery disease) Qualifiers: Coronary Disease-Associated Artery/Lesion type: [place] artery Is this a current diagnosis for this admission?: Yes Plan: The patient is status post placement of 3 drug-eluting stents to the mid RCA and distal RCA on 03/16/2020. He denies ischemic symptoms and his mildly elevated troponin is likely multifactorial to include his hypertensive emergency, demand supply mismatch, renal insufficiency among others. For unclear reasons to me he was fully anticoagulated on admission. I will discontinue his therapeutic Lovenox and will continue him on his outpatient medical regimen to include DAPT. (3) Aortic stenosis Qualifiers: Cardiac valve disease etiology: nonrheumatic Qualified Code(s): I35.0 - Nonrheumatic aortic (valve) stenosis Is this a current diagnosis for this admission?: Yes Plan: The patient has known severe aortic stenosis and is scheduled to undergo TAVR at [facility] on 05/24/2020. The patient had been accepted at [facility] since yesterday however no stepdown unit beds were available. The patient is currently on just nasal cannula and doing 100% better, I do not believe he needs stepdown care at this point. I already contacted [facility] this morning and am awaiting a call back. He should be able to be transferred today. In the meantime, we will continue his current medical management except therapeutic anticoagulation with Lovenox. (4) Hypertensive emergency Is this a current diagnosis for this admission?: Yes Plan: Now resolved. His blood pressure has been 100% improved and around 140 mmHg systolic. We will continue with current management.
[2020-04-30] MEDS: ALBUTEROL SULFATE 0.083% NEB 2.5 MG/3 ML AMPUL NEB SCH (09:02)
[2020-04-30] MEDS: FERROUS SULFATE 325 MG TABLET PO SCH (09:53)
[2020-04-30] MEDS ORDERED: NEBIVOLOL HCL 10 MG TABLET PO SCH (10:00)
[2020-04-30] MEDS ORDERED: LOSARTAN POTASSIUM 25 MG TABLET PO SCH (10:00)
[2020-04-30] MEDS ORDERED: ASPIRIN 81 MG TABLET, ENT COATED PO SCH (10:00)
[2020-04-30] MEDS ORDERED: CLOPIDOGREL BISULFATE 75 MG TABLET PO SCH (10:00)
[2020-04-30] MEDS ORDERED: (PENDING PHARMACY ID) (Nebivolol Hcl [Bystolic] 20 MG) PO SCH (10:00)
[2020-04-30 12:35] VITALS: BP 142/72
--- NOTE | 2020-04-30 13:06 | PDOC TRANSFER SUMMARY ---
General Admission Date/PCP: 04/29/20 12:20 KENYON ALVARENGA MD Resuscitation Status: Full Code - Transfer Diagnosis (1) Acute respiratory failure, unspecified whether with hypoxia or hypercapnia Is this a current diagnosis for this admission?: Yes (2) Flash pulmonary edema Is this a current diagnosis for this admission?: Yes (3) Hypertensive emergency Is this a current diagnosis for this admission?: Yes (4) Chronic diastolic congestive heart failure Is this a current diagnosis for this admission?: Yes (5) Aortic stenosis Is this a current diagnosis for this admission?: Yes (6) CAD (coronary artery disease) Is this a current diagnosis for this admission?: Yes (7) Obesity (BMI 30-39.9) Is this a current diagnosis for this admission?: No - Transfer Medications Home Medications: Albuterol Sulfate [Ventolin 0.083% Neb 2.5 mg/3 mL Ampul] 2.5 mg NEB QID 04/15/20 Clopidogrel Bisulfate [Plavix 75 mg Tablet] 75 mg PO DAILY 04/15/20 Ferrous Sulfate [Ferosul] 325 mg PO TID 04/15/20 Sertraline HCl 25 mg PO QHS 04/15/20 Torsemide [Demadex 20 mg Tablet] 40 mg PO BID 04/15/20 Acetaminophen [Acetaminophen Extra Strength] 1,000 mg PO DAILYP PRN 04/29/20 Furosemide [Lasix 40 mg Tablet] 40 mg PO BID 04/29/20 Hydralazine HCl [Apresoline 50 mg Tablet] 50 mg PO BID 04/29/20 Montelukast Sodium [Singulair 10 mg Tablet] 10 mg PO DAILY 04/29/20 Nebivolol HCl [Bystolic] 20 mg PO DAILY 04/29/20 - Allergies Allergies/Adverse Reactions: No Known Allergies Allergy (Verified 08/01/19 15:58) Hospital Course Hospital Course: (1) Acute respiratory failure, unspecified whether with hypoxia or hypercapnia Qualifiers: Respiratory failure complication: hypoxia Qualified Code(s): J96.01 - Acute respiratory failure with hypoxia Is this a current diagnosis for this admission?: Yes Plan: 04/29/2020-patient is going to be admitted to [facility] for acute on chronic respiratory failure with hypoxia and hypercapnia. Continue CPAP at night. To continue nebulizer treatments. To continue oxygen supplementations. Most likely secondary to acute on chronic diastolic heart failure. 04/30/2020-patient is off the BiPAP sitting comfortably in the chair on oxygen supplementation. Pulse oxes 100% on 3 L. Acute on chronic respiratory failure with hypoxia and hypercapnia resolving. Patient got a bed in [place] going today. (2) Flash pulmonary edema Is this a current diagnosis for this admission?: Yes Plan: 04/29/2020-came in with severe hypoxia requiring BiPAP, chest x-ray indicated of pulmonary edema and a hypertensive emergency. Patient received 80 mg IV Lasix and he is feeling much better at the time of my examination. Plan is to continue Lasix 40 mg IV every 8 hours. 04/29/2020-consultation with cardiology was done Dr. Hodge thinks recurrent hospitalization for heart failure most likely secondary to noncompliance with Lasix and also the presence of severe aortic stenosis. Patient was scheduled for TAVR in [place] on of next month. Dr. Hodge called [facility] got accepting physician . But they do not have any beds available at this time. 04/30/20-patient was accepted to [place] there is a bed waiting for him p atient put out 2.8 L negative balance in the last 24 hours. Pulse oxes are improved and lower extremity edema improving. (3) Hypertensive emergency Is this a current diagnosis for this admission?: Yes Plan: 04/29/2020-patient came in with systolic blood pressure of 230 started on nitro drip and received IV Lasix 80 mg 1 dose. Latest blood pressure is 130/88. To continue nitro drip and started on IV hydralazine 10 mg every 4 hours as needed for sutured blood pressure more than 170. Started on lisinopril at this time. Patient taking torsemide at home to be on hold. 04/29/2020-4:24 PM latest blood pressure is 130/60 patient is taken off the nitro drip. 04/30/2020-latest blood pressure is 144/67. Stable. Plan is to continue the present management at this time. (4) Chronic diastolic congestive heart failure Is this a current diagnosis for this admission?: Yes Plan: 04/29/2020-recent echocardiogram shows EF of 60% with moderate aortic stenosis and grade 1/grade 4 diastolic heart failure. Started on Lasix 40 mg IV every 8 hours. 04/30/2020-patient is on IV diuretics with negative output of 2.8 L in the last 24 hours. (5) Aortic stenosis Is this a current diagnosis for this admission?: No Plan: 04/29/2020-patient has history of moderate aortic stenosis as per the patient he is scheduled to go to [place] for valve replacement on May 24. 04/29/2020-4:30 PM patient admitted for third time for heart failure most likely secondary to severe aortic stenosis. Patient was accepted to [place] awaiting the bed availability. 3020-patient is accepted to [place] most likely he will get TAVR at [place]. (6) CAD (coronary artery disease) Is this a current diagnosis for this admission?: No Plan: 04/29/2020-patient has history of coronary artery disease status post stent placements in [place] last week. Started on treatment dose of Lovenox, aspirin and atorvastatin. Troponin is will be trended. (7) Obesity (BMI 30-39.9) Is this a current diagnosis for this admission?: No Plan: 04/29/2020-patient BMI is more than 36 diet exercise weight loss lifestyle modifications discussed with the patient. Physical Exam Vital Signs: Temp Pulse Resp BP Pulse Ox 97.6 F 71 18 142/72 H 100 04/30/20 11:32 04/30/20 11:32 04/30/20 11:32 04/30/20 11:32 04/30/20 11:32 Intake & Output 04/29/20 04/30/20 05/01/20 06:59 06:59 06:59 Intake Total 267 320 Output Total 3075 700 Balance -2808 -380 Weight 118.6 kg General appearance: PRESENT: no acute distress, morbidly obese Head exam: PRESENT: atraumatic Eye exam: PRESENT: PERRLA Ear exam: PRESENT: normal external ear exam Mouth exam: PRESENT: neck supple Teeth exam: PRESENT: poor dentation Neck exam: ABSENT: carotid bruit, JVD, lymphadenopathy, thyromegaly Respiratory exam: PRESENT: decreased breath sounds Cardiovascular exam: PRESENT: tachycardia GI/Abdominal exam: PRESENT: normal bowel sounds, soft. ABSENT: distended, guarding, mass, organolmegaly, rebound, tenderness Rectal exam: PRESENT: deferred Extremities exam: PRESENT: +2 edema Neurological exam: PRESENT: alert, awake, oriented to person, oriented to place, oriented to time, oriented to situation, CN II-XII grossly intact. ABSENT: motor sensory deficit Psychiatric exam: PRESENT: appropriate affect, normal mood. ABSENT: homicidal ideation, suicidal ideation Results Laboratory Results: 04/30/20 05:46 04/30/20 05:46 04/29/20 04/29/20 04/30/20 13:35 14:10 05:46 WBC 9.9 RBC 3.59 L Hgb 9.3 L Hct 28.0 L MCV 78 L MCH 25.8 L MCHC 33.1 RDW 18.2 H Plt Count 166 Seg Neutrophils % 85.6 H Carbonic Acid 1.08 HCO3/H2CO3 Ratio 19:1 ABG pH 7.38 ABG pCO2 35.9 ABG pO2 104.9 H ABG HCO3 20.9 ABG O2 Saturation 97.8 ABG Base Excess -3.7 FiO2 30% Sodium Potassium Chloride Carbon Dioxide Anion Gap BUN Creatinine Est GFR ( Amer) Glucose Calcium Magnesium Total Bilirubin AST Alkaline Phosphatase Total Protein Albumin Triglycerides Cholesterol LDL Cholesterol Direct VLDL Cholesterol HDL Cholesterol Lipase TSH Urine Color STRAW Urine Appearance CLEAR Urine pH 5.0 Ur Specific [place] 1.006 Urine Protein 30 H Urine Glucose (UA) NEGATIVE Urine Ketones NEGATIVE Urine Blood SMALL H Urine Nitrite NEGATIVE Ur Leukocyte Esterase NEGATIVE Urine WBC (Auto) 1 Urine RBC (Auto) 1 04/30/20 04/30/20 05:46 05:46 WBC RBC Hgb Hct MCV MCH MCHC RDW Plt Count Seg Neutrophils % Carbonic Acid HCO3/H2CO3 Ratio ABG pH ABG pCO2 ABG pO2 ABG HCO3 ABG O2 Saturation ABG Base Excess FiO2 Sodium 138.9 Potassium 4.2 Chloride 105 Carbon Dioxide 25 Anion Gap 9 BUN 41 H Creatinine 1.93 H Est GFR ( Amer) 41 L Glucose 121 H Calcium 8.5 Magnesium 2.1 Total Bilirubin 0.8 AST 29 Alkaline Phosphatase 57 Total Protein 5.5 L Albumin 3.2 L Triglycerides 72 Cholesterol 146.44 LDL Cholesterol Direct 91 VLDL Cholesterol 14.0 HDL Cholesterol 40 Lipase 66.4 TSH 1.03 Urine Color Urine Appearance Urine pH Ur Specific [place] Urine Protein Urine Glucose (UA) Urine Ketones Urine Blood Urine Nitrite Ur Leukocyte Esterase Urine WBC (Auto) Urine RBC (Auto) 04/29/20 04/29/20 04/29/20 10:40 15:45 15:45 Creatine Kinase 33 L CK-MB (CK-2) Troponin I 0.185 0.273 NT-Pro-B Natriuret Pep [id number] H 04/29/20 04/30/20 20:20 05:46 Creatine Kinase CK-MB (CK-2) 2.78 2.56 Troponin I NT-Pro-B Natriuret Pep [id number] H Impressions: Chest CT 04/29/20 00:00 IMPRESSION: Bilateral alveolar and interstitial pulmonary edema right greater than left Bilateral pleural effusions right greater than left Very heavily calcified aortic valve, suspect clinically significant aortic stenosis Chest X-Ray 04/29/20 10:34 IMPRESSION: Alveolar and interstitial pulmonary edema with trace pleural effusions Plan Discharge Plan: Patient is going to [place] today. Time Spent: Greater than 30 Minutes
[2020-04-30] MEDS ORDERED: HEPARIN SOD (PORCINE) 5,000 UNIT/ML 1 ML VIAL SUBCUT SCH (14:00)
== END 2020-04-30 12:39 | disposition short-term general hospital (02) | DRG 304 ==
LOC: ER 10:23 → EH 12:20 → 3W 14:32
PROVIDERS: ADMIT Internal Medicine; ATTEND Internal Medicine
PROC: 5A09357 Assistance with Respiratory Ventilation, Less than 24 Consecutive Hours, Continuous Positive Airway Pressure (ICD-10-PCS; principal; 2020-04-29)
DX: I16.1 Hypertensive emergency (principal); J96.21 Acute and chronic respiratory failure with hypoxia; J96.22 Acute and chronic respiratory failure with hypercapnia; I50.1 Left ventricular failure, unspecified; I50.32 Chronic diastolic (congestive) heart failure; I11.0 Hypertensive heart disease with heart failure; E66.9 Obesity, unspecified; I25.10 Atherosclerotic heart disease of native coronary artery without angina pectoris; I35.0 Nonrheumatic aortic (valve) stenosis; K21.9 Gastro-esophageal reflux disease without esophagitis; J44.9 Chronic obstructive pulmonary disease, unspecified; N40.0 Benign prostatic hyperplasia without lower urinary tract symptoms; Z68.36 Body mass index [BMI] 36.0-36.9, adult; I25.2 Old myocardial infarction; Z79.02 Long term (current) use of antithrombotics/antiplatelets; Z79.899 Other long term (current) drug therapy; Z95.5 Presence of coronary angioplasty implant and graft; Z91.14 Patient's other noncompliance with medication regimen; Z79.51 Long term (current) use of inhaled steroids; Z79.52 Long term (current) use of systemic steroids; Z11.59 Encounter for screening for other viral diseases; Z83.3 Family history of diabetes mellitus; Z82.49 Family history of ischemic heart disease and other diseases of the circulatory system
CPT/HCPCS: 36415; 36600; 71045; 71250; 80053; 80061; 80307; 81001; 82550; 82553; 82803; 83605; 83690; 83735; 83880; 84443; 84484; 85025; 85610; 87040; 87635; 93005; 93010; 94640; 96365; 96368; 99285; C9803; J0696; J1650; J1940; J2543; J3490; J7050; J7613

== ENCOUNTER 2020-08-13 12:21 | Inpatient (IN) | payer MEDICARE, OTHER ==
[2020-08-13] MEDS: PROPOFOL 1,000 MG/100 ML INFUS..BTL IV PRN ×5 (12:39→23:00)
[2020-08-13] MEDS ORDERED: FUROSEMIDE INJ/PF 40 MG/4 ML SDV IV ONE (12:42)
[2020-08-13 13:19] LABS: ABSOLUTE BASOPHILS # (AUTO) 0.1 10^3/uL (0.0-0.2); ABSOLUTE EOSINOPHILS # (AUTO) 0.2 10^3/uL (0.0-0.6); ABSOLUTE LYMPHOCYTES (AUTO) 0.6 10^3/uL (0.5-4.7); ABSOLUTE MONOCYTES (AUTO) 0.8 10^3/uL (0.1-1.4); ABSOLUTE NEUT (AUTO) 9.4 10^3/uL (1.7-8.2); BASOPHILS % (AUTO) 0.7 % (0-2); EOSINOPHILS % (AUTO) 1.4 % (0-6); HEMATOCRIT 28.6 % (37.9-51.0); HEMOGLOBIN 9.1 g/dL (13.5-17.0); LYMPHOCYTES % (AUTO) 5.8 % (13-45); MEAN CORPUSCULAR HEMOGLOBIN 25.5 pg (27.0-33.4); MEAN CORPUSCULAR HGB CONC 31.7 g/dL (32.0-36.0); MEAN CORPUSCULAR VOLUME 80 fl (80-97); MONOCYTES % (AUTO) 6.8 % (3-13); PLATELET COUNT 177 10^3/uL (150-450); RED BLOOD COUNT 3.56 10^6/uL (4.35-5.55); RED CELL DISTRIBUTION WIDTH 16.2 % (11.5-14.0); SEGMENTED NEUTROPHILS % (AUTO) 85.3 % (42-78); TOTAL CELLS COUNTED % (AUTO) 100 %
[2020-08-13 13:23] LABS: INTERNATIONAL RATION (INR) 1.16
[2020-08-13 13:25] LABS: D-DIMER 1.95 ug/mL (0.00-0.50)
[2020-08-13 13:35] LABS: ALBUMIN 3.4 g/dL (3.5-5.0); ALKALINE PHOSPHATASE 86 U/L (38-126); ANION GAP 10 (5-19); ASPARTATE AMINO TRANSFERASE 20 U/L (17-59); BILIRUBIN,DIRECT 0.2 mg/dL (0.0-0.4); BILIRUBIN,TOTAL 0.9 mg/dL (0.2-1.3); BLOOD UREA NITROGEN 27 mg/dL (7-20); CALCIUM 8.6 mg/dL (8.4-10.2); CARBON DIOXIDE 22 mmol/L (22-30); CHLORIDE 109 mmol/L (98-107); CREATINE KINASE 41 U/L (55-170); GLUCOSE 167 mg/dL (75-110); TOTAL PROTEIN 6.1 g/dL (6.3-8.2)
[2020-08-13 13:48] LABS: TROPONIN I 0.068 ng/mL
--- NOTE | 2020-08-13 14:30 | RADIOLOGY REPORT (SQ) ---
EXAM DESCRIPTION: CHEST SINGLE VIEW IMAGES COMPLETED DATE/TIME: 08/13/2020 2:18 pm REASON FOR STUDY: SOB COMPARISON: Chest radiographs 04/29/2020. EXAM PARAMETERS: NUMBER OF VIEWS: Two views TECHNIQUE: 2 frontal radiographic views of the chest acquired. RADIATION DOSE: NA LIMITATIONS: Right costophrenic angle not visualized. FINDINGS: LUNGS AND PLEURA: Small left pleural effusion. MEDIASTINUM AND HILAR STRUCTURES: Unchanged contour. HEART AND VASCULAR STRUCTURES: TAVR. Cardiomegaly. Pulmonary vascular congestion. Calcified athero sclerotic changes and tortuosity of the thoracic aorta BONES: No acute findings. HARDWARE: Endotracheal tube tip terminating 3.9 cm above the ivelisse. Subdiaphragmatic enteric tube w ith tip terminating over the right upper quadrant. OTHER: Right upper quadrant surgical clips IMPRESSION: Lines and tubes as above. Pulmonary edema and small left pleural effusion. Cardiomegaly. TECHNICAL DOCUMENTATION: JOB ID: [id number] 2010 [employer]- All Rights Reserved Reading location - IP/workstation name: [email or web address]
[2020-08-13 14:41] LABS: APPEARANCE,URINE CLEAR; BILIRUBIN,URINE NEGATIVE (NEGATIVE); COLOR,URINE STRAW; GLUCOSE, URINE NEGATIVE (NEGATIVE); KETONES,URINE NEGATIVE (NEGATIVE); LEUKOCYTE ESTERASE,URINE NEGATIVE (NEGATIVE); NITRITE,URINE NEGATIVE (NEGATIVE); PROTEIN,URINE 100 mg/dL (NEGATIVE); URINE SPECIFIC GRAVITY 1.009; UROBILINOGEN,URINE NEGATIVE mg/dL (<2.0)
--- NOTE | 2020-08-13 14:57 | ER Document Report ---
Entered by RHIANNA GAYLE SCRIBE 08/13/20 1233 Acting as scribe for:CHANNING KOHLER MD ED General - General Stated Complaint: DIFFICULTY BREATHING Time Seen by Provider: 08/13/20 12:28 Mode of Arrival: Medic Information source: Emergency Med Personnel Cannot obtain history due to: Intubated Notes: This 79 year old male patient with COPD and CHF presents to the emergency department today for concerns of respiratory distress. Patient informed EMS that he had been short of breath for four days. When they arrived on scene the patient was saturating 76% on room air, he was put on C-pap and he quickly deteriorated, his eyes rolled back in his head and he became unresponsive so he was intubated. He was given 1 A&A treatment, 125 mg Solu-Medrol, 2 g of magnesium, 3 dosages of 165 mg of ketamine, and rocuronium for sedation for intubation. TRAVEL OUTSIDE OF THE [place] IN LAST 30 DAYS: No - Related Data Allergies/Adverse Reactions: No Known Allergies Allergy (Verified 08/01/19 15:58) Past Medical History - General Information source: Emergency Med Personnel, [facility] Records Cannot obtain history due to: Intubated - Social History Smoking Status: Former Smoker Family History: DM, Hypertension - Past Medical History Cardiac Medical History: Reports: Hx Congestive Heart Failure, Hx Hypertension Pulmonary Medical History: Reports: Hx COPD Renal/ Medical History: Reports: Hx Benign Prostatic Hyperplasia, Hx Kidney Stones, Hx Renal Insufficiency GI Medical History: Reports: Hx Gastroesophageal Reflux Disease Musculoskeletal Medical History: Reports Hx Arthritis Past Surgical History: Reports: Hx Cholecystectomy, Hx Coronary Stent - Immunizations Hx Diphtheria, Pertussis, Tetanus Vaccination: Yes Hx Pneumococcal Vaccination: 06/01/13 Review of Systems - Review of Systems -: Yes ROS unobtainable due to patient's medical condition - sedated, intubated. Physical Exam - Vital signs Vitals: Resp 15 08/13/20 12:23 - General General appearance: Unresponsive - sedated, intubated. - HEENT Head: Normocephalic, Atraumatic - Respiratory Respiratory status: Other - Intubated Breath sounds: Other - Intubated, good air movement with coarse breath sounds bilaterally - Cardiovascular Rhythm: Regular Heart sounds: Normal auscultation Murmur: No - Abdominal Inspection: Obese Distension: No distension Bowel sounds: Normal - Extremities General upper extremity: Normal inspection. No: Edema General lower extremity: Edema - 2+ pitting edema bilaterally - Neurological Neuro grossly intact: No - intubated, sedated [place] Coma Scale Eye Opening: None Rachel Coma Scale Verbal: None Rachel Coma Scale Motor: None [place] Coma Scale Total: 3 - Skin Skin Temperature: Warm Skin Moisture: Dry Skin Color: Normal Course - Re-evaluation Re-evalutation: 08/13/20 16:43 The patient was evaluated during the global COVID-19 pandemic and that diagnosis was suspected/considered upon their initial presentation. Their evaluation, treatment and testing was consistent with current guidelines for patients who present with complaints or symptoms that may be related to COVID-19. - Vital Signs Vital signs: Temp Pulse Resp BP Pulse Ox 96.4 F L 62 14 103/40 L 99 08/13/20 19:59 08/13/20 18:10 08/13/20 18:00 08/13/20 18:00 08/13/20 20:10 - Laboratory Results Result Diagrams: 08/13/20 12:29 08/13/20 12:29 Laboratory Results Interpreted: 08/13/20 08/13/20 08/13/20 12:29 12:29 12:29 WBC 11.0 H RBC 3.56 L Hgb 9.1 L Hct 28.6 L MCH 25.5 L MCHC 31.7 L RDW 16.2 H Lymph % (Auto) 5.8 L Absolute Neuts (auto) 9.4 H Seg Neutrophils % 85.3 H D-Dimer 1.95 H Carbonic Acid ABG pH ABG pCO2 ABG pO2 Chloride 109 H BUN 27 H Creatinine 1.63 H Est GFR ( Amer) 50 L Est GFR (MDRD) Non-Af 41 L Glucose 167 H Creatine Kinase 41 L NT-Pro-B Natriuret Pep Total Protein 6.1 L Albumin 3.4 L Urine Protein Urine Blood 08/13/20 08/13/20 08/13/20 12:29 14:25 14:49 WBC RBC Hgb Hct MCH MCHC RDW Lymph % (Auto) Absolute Neuts (auto) Seg Neutrophils % D-Dimer Carbonic Acid 1.47 H ABG pH 7.29 L ABG pCO2 48.7 H ABG pO2 110.0 H Chloride BUN Creatinine Est GFR ( Amer) Est GFR (MDRD) Non-Af Glucose Creatine Kinase NT-Pro-B Natriuret Pep 89637 H Total Protein Albumin Urine Protein 100 H Urine Blood SMALL H Critical Laboratory Results Reviewed: Yes Attending or Supervising Physician who Reviewed Labs: CHANNING KOHLER - Elevated D-dimer and BNP - Radiology Results Critical Radiology Results Reviewed: Yes Attending or Supervising Physician who Reviewed Radiology: CHANNING KOHLER - Cardiomegaly, pulmonary edema, small left pleural effusion - EKG Interpretation by Me EKG shows normal: Sinus rhythm, [place], Intervals, QRS Complexes, ST-T Waves Rate: Normal - 75 Rhythm: NSR [place]/QRS: RBBB Voltage: Consistent with LVH - Consults Dr. Murray Time consulted: 15:00 Consulted provider: will come to ER Critical Care Note - Critical Care Note Total time excluding time spent on procedures (mins): 35 Comments: At least 35 minutes spent evaluating patient, getting history from EMS, reviewing current and previous labs, history, x-rays and EKGs. Reviewing curren t x-rays for endotracheal tube placement and evaluating blood gas parameters to assess adequacy of ventilation settings. Time spent discussing the case with the stores clerk to get the patient admitted to the intensive care unit. Discharge - Discharge Clinical Impression: COPD with exacerbation, Hypoxia, Endotracheally intubated, Obesity (BMI 30- 39.9) High blood pressure Qualifiers: Hypertension type: essential hypertension Qualified Code(s): I10 - Essential (primary) hypertension Congestive heart failure (CHF) Qualifiers: Heart failure type: diastolic Heart failure chronicity: acute Qualified Code(s): I50.31 - Acute diastolic (congestive) heart failure Respiratory failure Qualifiers: Chronicity: acute Respiratory failure complication: hypoxia Qualified Code(s): J96.01 - Acute respiratory failure with hypoxia Chronic obstructive pulmonary disease Qualifiers: COPD type: unspecified COPD Qualified Code(s): J44.9 - Chronic obstructive pulmonary disease, unspecified Condition: Fair Disposition: ADMITTED INPATIENT Admitting Provider: Trevor ([facility]) Unit Admitted: ICU I personally performed the services described in the documentation, reviewed and edited the documentation which was dictated to the scribe in my presence, and it accurately records my words and actions.
[2020-08-13 15:14] LABS: ARTERIAL BLOOD BASE EXCESS -3.8 mmol/L; ARTERIAL BLOOD H2CO3 1.47 mmol/L (1.05-1.35); ARTERIAL BLOOD HCO3 22.8 mmol/L (20-24); ARTERIAL BLOOD O2 SATURATION 97.5 % (94-98); ARTERIAL BLOOD PCO2 48.7 mmHg (35-45); ARTERIAL BLOOD PH 7.29 (7.35-7.45); ARTERIAL BLOOD TOTAL CO2 24.3 mmol/L (23-27)
[2020-08-13 15:15] LABS: ARTERIAL BLOOD FIO2 50%
[2020-08-13] MEDS ORDERED: DEXTROSE 50%-WATER 25 GM/50 ML DISP.SYRIN IV PRN ×2 (15:57)
[2020-08-13] MEDS ORDERED: DEXTROSE 40% GEL 15 GM TUBE PO PRN ×2 (15:57)
[2020-08-13] MEDS ORDERED: GLUCAGON,HUMAN RECOMB 1 MG INJ SUBCUT PRN (15:57)
[2020-08-13] MEDS ORDERED: ONDANSETRON HCL INJ/PF 4 MG/2 ML SDV IV PRN (15:57)
--- NOTE | 2020-08-13 15:57 | CRITICAL CARE ADMISSION REPORT ---
HPI Date:: 08/13/20 Time:: 15:00 Reason for ICU Reason:: Intubated with CHF Admission Date/Time & PCP: Admission Date/Time: 08/13/20 15:36 Primary Care Provider: KENYON ALVARENGA MD HPI: This patient is an 79 yo man found in respiratory distress by EMS. Patient's O2 saturations were noted to be in the 70s. How accurate is not known but the pt then became unresponsive and was intubated in the field. He is on the ventilator sedated on diprivan. His BNP is 17K. 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 His of HTN, non-compliance, COPD, CHF by old records. No family currently available. History obtained from:: Old records - Diagnosis/Plan (1) Congestive heart failure (CHF) Qualifiers: Heart failure type: diastolic Heart failure chronicity: acute Qualified Code(s): I50.31 - Acute diastolic (congestive) heart failure Is this a current diagnosis for this admission?: Yes Plan: This is likely the most important diagnosis. Given his recent TAVR, his severe should be at least partially resolved. Need an echo Friday to asses. He also needs lasix and afterload reduction. Control of BP as well. (2) COPD with exacerbation Is this a current diagnosis for this admission?: Yes Plan: Not wheezing currently. His med list contains 60mg of prednisone. He will need this and duonebs. (3) Endotracheally intubated Is this a current diagnosis for this admission?: Yes Plan: Hope to extubate soon. Perhaps Friday. (4) Hypertension Qualifiers: Hypertension type: essential hypertension Qualified Code(s): I10 - Esse ntial (primary) hypertension Is this a current diagnosis for this admission?: Yes Plan: Certainly needs to be controlled as his CHF will be worsened by this. (5) Aortic stenosis Qualifiers: Is this a current diagnosis for this admission?: Yes Plan: Again, recent TAVR and need echo to asses function and degree of stenosis. Plan Summary: Treat with diuretics and bqgh1ngr meds. Hope to wean soon. Past Medical History Cardiac Medical History: Reports: Congestive Heart Failure, Hypertension Denies: Coronary Artery Disease, Myocardial Infarction Pulmonary Medical History: Reports: Chronic Obstructive Pulmonary Disease (COPD) Denies: Asthma, Bronchitis, Pneumonia Neurological Medical History: Denies: Seizures Endocrine Medical History: Denies: Diabetes Mellitus Type 1, Diabetes Mellitus Type 2, Hyperthyroidism, Hypothyroidism GI Medical History: Reports: Gastroesophageal Reflux Disease Denies: Cirrhosis, Crohn's Disease, Hepatitis, Ulcerative Colitis Musculoskeltal Medical History: Reports: Arthritis Denies: Gout Skin Medical History: Denies: Eczema, Psoriasis Psychiatric Medical History: Denies: Depression Hematology: Denies: Anemia, Bleeding Tendencies Past Surgical History Past Surgical History: Reports: Cholecystectomy, Coronary Stent, Other - Stent placement. TAVR May 2020. Social/Family History - Social History Smoking Status: Former Smoker Frequency of Alcohol Use: None Hx Recreational Drug Use: No Drugs: None Hx Prescription Drug Abuse: No - Medication/Allergies Home Medications: Albuterol Sulfate [Ventolin 0.083% Neb 2.5 mg/3 mL Ampul] 2.5 mg NEB QID 04/15/20 Clopidogrel Bisulfate [Plavix 75 mg Tablet] 75 mg PO DAILY 04/15/20 Ferrous Sulfate [Ferosul] 325 mg PO TID 04/15/20 Sertraline HCl 25 mg PO QHS 04/15/20 Torsemide [Demadex 20 mg Tablet] 40 mg PO BID 04/15/20 Albuterol Sulfate [Proair HFA Inhalation Aerosol 8.5 gm MDI] 1 puff IH Q4HP PRN #1 [email or web address] 04/17/20 Amoxicillin/Potassium Clav [Augmentin 875-125 Tablet] 1 tab PO BID #20 tab 04/17/20 Prednisone [Deltasone 20 mg Tablet] 60 mg PO DAILY #12 tablet 04/17/20 Acetaminophen [Acetaminophen Extra Strength] 1,000 mg PO DAILYP PRN 04/29/20 Furosemide [Lasix 40 mg Tablet] 40 mg PO BID 04/29/20 Hydralazine HCl [Apresoline 50 mg Tablet] 50 mg PO BID 04/29/20 Montelukast Sodium [Singulair 10 mg Tablet] 10 mg PO DAILY 04/29/20 Nebivolol HCl [Bystolic] 20 mg PO DAILY 04/29/20 Allergies/Adverse Reactions: No Known Allergies Allergy (Verified 08/01/19 15:58) Review of Systems ROS unobtainable: Due to endotracheal tube, Due to mental status Physical Exam Vital Signs: Temp Pulse Resp BP Pulse Ox 96.5 F L 16 196/65 H 99 12/13/20 15:31 08/13/20 15:31 08/13/20 15:31 08/13/20 15:31 Intake & Output 08/12/20 08/13/20 08/14/20 06:59 06:59 06:59 Intake Total 40 Balance 40 Weight 110 kg Weight/Height Weight 110 kg General appearance: PRESENT: no acute distress, obese Head exam: PRESENT: atraumatic, normocephalic Eye exam: PRESENT: conjunctiva pink, EOMI, PERRLA. ABSENT: scleral icterus Ear exam: PRESENT: normal external ear exam Mouth exam: PRESENT: moist, tongue midline Respiratory exam: PRESENT: clear to auscultation eddi, crackles. ABSENT: rales, rhonchi, wheezes Cardiovascular exam: PRESENT: RRR. ABSENT: diastolic murmur, rubs, systolic murmur GI/Abdominal exam: PRESENT: normal bowel sounds, soft. ABSENT: distended, guarding, mass, organolmegaly, rebound, tenderness Rectal exam: PRESENT: deferred Gentrourinary exam: PRESENT: indwelling catheter Extremities exam: PRESENT: full ROM, +2 edema. ABSENT: calf tenderness, clubbing, pedal edema Musculoskeletal exam: PRESENT: normal inspection Neurological exam: PRESENT: other - Sedated on diprivan. Tubes/Lines: PRESENT: Endotracheal Tube, Nasogastic Tube Laboratory/Radiographs Laboratory Results: 08/13/20 12:29 08/13/20 12:29 08/13/20 08/13/20 08/13/20 12:29 12:29 14:25 WBC 11.0 H RBC 3.56 L Hgb 9.1 L Hct 28.6 L MCV 80 MCH 25.5 L MCHC 31.7 L RDW 16.2 H Plt Count 177 Seg Neutrophils % 85.3 H Carbonic Acid HCO3/H2CO3 Ratio ABG pH ABG pCO2 ABG pO2 ABG HCO3 ABG O2 Saturation ABG Base Excess FiO2 Sodium 141.1 Potassium 4.0 Chloride 109 H Carbon Dioxide 22 Anion Gap 10 BUN 27 H Creatinine 1.63 H Est GFR ( Amer) 50 L Glucose 167 H Calcium 8.6 Total Bilirubin 0.9 AST 20 Alkaline Phosphatase 86 Total Protein 6.1 L Albumin 3.4 L Urine Color STRAW Urine Appearance CLEAR Urine pH 5.0 Ur Specific [place] 1.009 Urine Protein 100 H Urine Glucose (UA) NEGATIVE Urine Ketones NEGATIVE Urine Blood SMALL H Urine Nitrite NEGATIVE Ur Leukocyte Esterase NEGATIVE Urine WBC (Auto) 1 Urine RBC (Auto) 3 08/13/20 14:49 WBC RBC Hgb Hct MCV MCH MCHC RDW Plt Count Seg Neutrophils % Carbonic Acid 1.47 H HCO3/H2CO3 Ratio 15:1 ABG pH 7.29 L ABG pCO2 48.7 H ABG pO2 110.0 H ABG HCO3 22.8 ABG O2 Saturation 97.5 ABG Base Excess -3.8 FiO2 50% Sodium Potassium Chloride Carbon Dioxide Anion Gap BUN Creatinine Est GFR ( Amer) Glucose Calcium Total Bilirubin AST Alkaline Phosphatase Total Protein Albumin Urine Color Urine Appearance Urine pH Ur Specific [place] Urine Protein Urine Glucose (UA) Urine Ketones Urine Blood Urine Nitrite Ur Leukocyte Esterase Urine WBC (Auto) Urine RBC (Auto) 08/13/20 08/13/20 12:29 12:29 Creatine Kinase 41 L Troponin I 0.068 NT-Pro-B Natriuret Pep 43867 H Impressions: Chest X-Ray 08/13/20 12:27 IMPRESSION: Lines and tubes as above. Pulmonary edema and small left pleural effusion. Cardiomegaly. EKG: Sinus rhytym, RBBB, LVH All labs, radiographs, diagnostic studies and EKGs were personally reviewed: Yes In addition, reports of radiographic and diagnostic studies were read: Yes Critical Time Critical Time (minutes): 40 -: The care of a critically ill patient is dynamic. This note represents a static moment in the admission process. Orders and treatments may be given simultaneously and urgently, and time is not customer account representative of the treatment process. This patient requires Critical Care secondary to life threatening organ or limb dysfunction. Without Critical Care services, the patient is at risk for increased mortality and morbidity.
[2020-08-13] MEDS ORDERED: FENTANYL CITRATE INJ/PF 100 MCG/2 ML AMPUL IV ONE (16:01)
[2020-08-13] MEDS ORDERED: METOPROLOL TARTRATE PF/INJ 5 MG/5 ML SDV IV PRN (16:07)
[2020-08-13] MEDS ORDERED: FENTANYL CITRATE INJ/PF 100 MCG/2 ML AMPUL IV PRN (16:10)
[2020-08-13] MEDS ORDERED: DEXMEDETOMIDINE IN 0.9 % NACL 400 MCG/100 ML RTUPB IV PRN (16:10)
[2020-08-13] MEDS ORDERED: IPRATROPIUM/ALBUTEROL 0.5-2.5 MG/3 ML AMPUL NEB ONE (17:43)
[2020-08-13] MEDS: IPRATROPIUM/ALBUTEROL 0.5-2.5 MG/3 ML AMPUL NEB SCH (17:50)
[2020-08-13] MEDS ORDERED: TORSEMIDE 20 MG TABLET ONE (18:10)
[2020-08-13] MEDS: TORSEMIDE 20 MG TABLET NG SCH (18:32)
[2020-08-13] MEDS: NEBIVOLOL HCL 5 MG TABLET NG SCH ×2 (18:33→18:44)
[2020-08-13] MEDS: CLOPIDOGREL BISULFATE 75 MG TABLET NG SCH (18:39)
[2020-08-13] MEDS: FAMOTIDINE INJ/PF 20 MG/2 ML SDV IV SCH ×2 (18:39→21:56)
[2020-08-13] MEDS: MONTELUKAST SODIUM 10 MG TABLET NG SCH (21:37)
[2020-08-13] MEDS: HYDRALAZINE HCL 50 MG TABLET NG SCH (21:38)
[2020-08-13] MEDS: HEPARIN SOD (PORCINE) 5,000 UNIT/ML 1 ML VIAL SUBCUT SCH (21:38)
[2020-08-13] MEDS: FUROSEMIDE INJ/PF 40 MG/4 ML SDV IV SCH (21:45)
--- NOTE | 2020-08-14 00:23 | EKG REPORT ---
SEVERITY:- ABNORMAL ECG - SINUS RHYTHM RIGHT BUNDLE BRANCH BLOCK LEFT VENTRICULAR HYPERTROPHY : Confirmed by: Maria Luz Cortez 14-Aug-2020 00:22:41
[2020-08-14] MEDS: IPRATROPIUM/ALBUTEROL 0.5-2.5 MG/3 ML AMPUL NEB SCH ×2 (02:14→07:50)
[2020-08-14] MEDS: PROPOFOL 1,000 MG/100 ML INFUS..BTL IV PRN ×2 (02:15→05:04)
[2020-08-14 04:23] LABS: ABSOLUTE EOSINOPHILS # (AUTO) 0.1 10^3/uL (0.0-0.6); ABSOLUTE NEUT (AUTO) 6.2 10^3/uL (1.7-8.2); BASOPHILS % (AUTO) 0.6 % (0-2); EOSINOPHILS % (AUTO) 0.9 % (0-6); HEMATOCRIT 26.3 % (37.9-51.0); HEMOGLOBIN 8.4 g/dL (13.5-17.0); LYMPHOCYTES % (AUTO) 12.2 % (13-45); MEAN CORPUSCULAR HEMOGLOBIN 25.1 pg (27.0-33.4); MEAN CORPUSCULAR HGB CONC 31.9 g/dL (32.0-36.0); MEAN CORPUSCULAR VOLUME 79 fl (80-97); MONOCYTES % (AUTO) 12.5 % (3-13); PLATELET COUNT 158 10^3/uL (150-450); RED BLOOD COUNT 3.34 10^6/uL (4.35-5.55); RED CELL DISTRIBUTION WIDTH 15.9 % (11.5-14.0); SEGMENTED NEUTROPHILS % (AUTO) 73.8 % (42-78); TOTAL CELLS COUNTED % (AUTO) 100 %; WHITE BLOOD COUNT 8.4 10^3/uL (4.0-10.5)
[2020-08-14 04:29] LABS: INTERNATIONAL RATION (INR) 1.19; PARTIAL THROMBOPLASTIN TIME 35.4 SEC (23.5-35.8); PROTHROMBIN TIME 15.3 SEC (11.4-15.4)
[2020-08-14 04:40] LABS: ALBUMIN 2.8 g/dL (3.5-5.0); ALKALINE PHOSPHATASE 73 U/L (38-126); ANION GAP 8 (5-19); ASPARTATE AMINO TRANSFERASE 17 U/L (17-59); BILIRUBIN,DIRECT 0.2 mg/dL (0.0-0.4); BILIRUBIN,TOTAL 0.7 mg/dL (0.2-1.3); BLOOD UREA NITROGEN 32 mg/dL (7-20); CALCIUM 8.5 mg/dL (8.4-10.2); CARBON DIOXIDE 24 mmol/L (22-30); CHLORIDE 109 mmol/L (98-107); GLUCOSE 90 mg/dL (75-110); POTASSIUM 4.2 mmol/L (3.6-5.0); TOTAL PROTEIN 5.3 g/dL (6.3-8.2)
[2020-08-14] MEDS: HEPARIN SOD (PORCINE) 5,000 UNIT/ML 1 ML VIAL SUBCUT SCH ×3 (07:15→21:13)
[2020-08-14] MEDS: HYDRALAZINE HCL 50 MG TABLET NG SCH ×2 (07:19→14:13)
--- NOTE | 2020-08-14 09:24 | RADIOLOGY REPORT (SQ) ---
EXAM DESCRIPTION: CHEST SINGLE VIEW IMAGES COMPLETED DATE/TIME: 08/14/2020 5:49 am REASON FOR STUDY: Need better quality CXR COMPARISON: AP view of the chest from 08/13/2020. EXAM PARAMETERS: NUMBER OF VIEWS: One view. TECHNIQUE: An AP view of the chest was obtained. RADIATION DOSE: NA LIMITATIONS: None. FINDINGS: LUNGS AND PLEURA: Unchanged diffuse basal predominant hazy parenchymal opacities. The den se opacity in the inferior aspect of the left lung that obscures the contour of the hemidiaphragm and blunts the left lateral costophrenic sulcus is also unchanged. There is no pleural effusion. MEDIASTINUM AND HILAR STRUCTURES: Stable mediastinal and hilar contours. HEART AND VASCULAR STRUCTURES: TAVR prosthesis. BONES: No acute findings. HARDWARE: The tip of the endotracheal tube projects 3.3 cm above the ivelisse. The tip of the enteric tube projects past the gastroesophageal junction and outside the field of view of the radiograph. OTHER: No other finding. IMPRESSION: Tubes and lines as above. Otherwise unchanged radiographic appearance of the chest. TECHNICAL DOCUMENTATION: JOB ID: [id number] [employer]- All Rights Reserved Reading location - IP/workstation name: [email or web address]
[2020-08-14] MEDS: TAMSULOSIN HCL 0.4 MG CAP.SR.24H PO SCH (10:58)
[2020-08-14] MEDS: FUROSEMIDE INJ/PF 40 MG/4 ML SDV IV SCH ×2 (10:58→21:13)
[2020-08-14] MEDS: PREDNISONE 20 MG TABLET PO SCH (10:58)
[2020-08-14] MEDS: NEBIVOLOL HCL 5 MG TABLET NG SCH (10:58)
[2020-08-14] MEDS: FAMOTIDINE INJ/PF 20 MG/2 ML SDV IV SCH (10:58)
[2020-08-14] MEDS: CLOPIDOGREL BISULFATE 75 MG TABLET NG SCH (10:59)
[2020-08-14] MEDS: ASPIRIN 81 MG TABLET, ENT COATED PO SCH (10:59)
[2020-08-14] MEDS: TORSEMIDE 20 MG TABLET NG SCH (10:59)
[2020-08-14] MEDS: ALBUTEROL SULFATE 0.083% NEB 2.5 MG/3 ML AMPUL NEB SCH ×3 (12:23→20:32)
[2020-08-14] MEDS: NITROGLYCERIN 2% OINTMENT 1 GM PACKET TP SCH ×2 (12:40→18:22)
[2020-08-14] MEDS ORDERED: LABETALOL HCL INJ 20 MG/4 ML DISP.SYRIN IV ONE (15:44)
[2020-08-14] MEDS ORDERED: CARVEDILOL 6.25 MG TABLET ONE (16:00)
[2020-08-14] MEDS: LABETALOL HCL INJ 20 MG/4 ML DISP.SYRIN IV PRN ×2 (16:00→21:13)
[2020-08-14] MEDS: CARVEDILOL 6.25 MG TABLET PO SCH ×2 (16:00→18:18)
--- NOTE | 2020-08-14 19:25 | PDOC CRITICAL CARE PROG REPORT ---
General Date:: 08/14/20 ICU Day:: 2 Hospital Day:: 2 Resuscitation Status: Full Code Events in the past 12 to 24 Hours:: This obese 79-year-old male was admitted to [facility] on 08/13/2020 after presenting to the emergency department via EMS with respiratory distress. Initially, his SPO2 was found to be in the 70s. He was unresponsive and intubated in the field. He was admitted to the ICU with a working diagnosis of acute compensated CHF and COPD exacerbation. 08/14: The patient self extubated prior to morning rounds. He is a little groggy, but awake and answers appropriately. Follows commands. He is currently on a nonrebreather mask, SPO2 100%. Review of systems relevant to events:: Respiratory: Respiratory distress, COPD exacerbation Cardiovascular: Congestive heart failure Neurologic: Altered mental status/unresponsive Reason for ICU Addmission:: Intubated with CHF - Medications: Medications reviewed and adjusted accordingly: Yes Vasopressors:: None Sedation:: Propofol/fentanyl Physical Exam Vital Signs: Temp Pulse Resp BP Pulse Ox 98.6 F 62 18 127/46 H 98 08/14/20 05:30 08/14/20 07:50 08/14/20 07:50 08/14/20 07:15 08/14/20 07:50 Intake & Output 08/13/20 08/14/20 08/15/20 06:59 06:59 06:59 Intake Total 413 Output Total 1900 Balance -1487 Weight 117.6 kg Weight/Height Weight 117.6 kg Height 1.88 m General appearance: PRESENT: no acute distress, well-developed, well-nourished Head exam: PRESENT: atraumatic, normocephalic Eye exam: PRESENT: conjunctiva pink, EOMI, PERRLA. ABSENT: scleral icterus Mouth exam: PRESENT: moist, tongue midline Neck exam: ABSENT: carotid bruit, JVD, lymphadenopathy, thyromegaly Respiratory exam: PRESENT: crackles - Left lung. ABSENT: rales, rhonchi, wheezes Cardiovascular exam: PRESENT: RRR. ABSENT: diastolic murmur, rubs, systolic murmur Pulses: PRESENT: normal dorsalis pedis pul Vascular exam: PRESENT: normal capillary refill GI/Abdominal exam: PRESENT: normal bowel sounds, soft. ABSENT: distended, guarding, mass, organolmegaly, rebound, tenderness Extremities exam: PRESENT: full ROM, pedal edema, +1 edema. ABSENT: calf tenderness, clubbing Musculoskeletal exam: PRESENT: normal inspection. ABSENT: deformity Neurological exam: PRESENT: alert, awake, reflexes normal, CN II-XII grossly intact. ABSENT: motor sensory deficit Psychiatric exam: ABSENT: agitated, anxious Skin exam: PRESENT: dry, intact, warm. ABSENT: cyanosis, rash Laboratory/Radiographs Laboratory Results: 08/14/20 04:14 08/14/20 04:14 08/13/20 08/13/20 08/13/20 12:29 12:29 14:25 WBC 11.0 H RBC 3.56 L Hgb 9.1 L Hct 28.6 L MCV 80 MCH 25.5 L MCHC 31.7 L RDW 16.2 H Plt Count 177 Seg Neutrophils % 85.3 H Carbonic Acid HCO3/H2CO3 Ratio ABG pH ABG pCO2 ABG pO2 ABG HCO3 ABG O2 Saturation ABG Base Excess FiO2 Sodium 141.1 Potassium 4.0 Chloride 109 H Carbon Dioxide 22 Anion Gap 10 BUN 27 H Creatinine 1.63 H Est GFR ( Amer) 50 L Glucose 167 H Calcium 8.6 Total Bilirubin 0.9 AST 20 Alkaline Phosphatase 86 Total Protein 6.1 L Albumin 3.4 L Urine Color STRAW Urine Appearance CLEAR Urine pH 5.0 Ur Specific [place] 1.009 Urine Protein 100 H Urine Glucose (UA) NEGATIVE Urine Ketones NEGATIVE Urine Blood SMALL H Urine Nitrite NEGATIVE Ur Leukocyte Esterase NEGATIVE Urine WBC (Auto) 1 Urine RBC (Auto) 3 08/13/20 08/14/20 08/14/20 14:49 04:14 04:14 WBC 8.4 RBC 3.34 L Hgb 8.4 L Hct 26.3 L MCV 79 L MCH 25.1 L MCHC 31.9 L RDW 15.9 H Plt Count 158 Seg Neutrophils % 73.8 Carbonic Acid 1.47 H HCO3/H2CO3 Ratio 15:1 ABG pH 7.29 L ABG pCO2 48.7 H ABG pO2 110.0 H ABG HCO3 22.8 ABG O2 Saturation 97.5 ABG Base Excess -3.8 FiO2 50% Sodium 140.6 Potassium 4.2 Chloride 109 H Carbon Dioxide 24 Anion Gap 8 BUN 32 H Creatinine 2.15 H Est GFR ( Amer) 36 L Glucose 90 Calcium 8.5 Total Bilirubin 0.7 AST 17 Alkaline Phosphatase 73 Total Protein 5.3 L Albumin 2.8 L Urine Color Urine Appearance Urine pH Ur Specific [place] Urine Protein Urine Glucose (UA) Urine Ketones Urine Blood Urine Nitrite Ur Leukocyte Esterase Urine WBC (Auto) Urine RBC (Auto) 08/13/20 08/13/20 12:29 12:29 Creatine Kinase 41 L Troponin I 0.068 NT-Pro-B Natriuret Pep [id number] H All labs, radiographs, diagnostic studies and EKGs were personally reviewed: Yes In addition, reports of radiographic and diagnostic studies were read: Yes Assessment and Plan - Diagnosis (1) Acute hypoxemic respiratory failure Is this a current diagnosis for this admission?: Yes Plan: * Supplemental oxygen to maintain SPO2 93+%. (2) Acute decompensated heart failure Is this a current diagnosis for this admission?: Yes Plan: * Continue diuresis. (4) COPD with exacerbation Is this a current diagnosis for this admission?: Yes (5) Hypertension Qualifiers: Hypertension type: essential hypertension Qualified Code(s): I10 - Essential (primary) hypertension Is this a current diagnosis for this admission?: Yes (6) Acute renal failure Is this a current diagnosis for this admission?: Yes Plan: * Monitor urine output. * Avoid nephrotoxic drugs. * Renal dosing of medications. (7) Obesity (BMI 30-39.9) Is this a current diagnosis for this admission?: Yes (8) Aortic stenosis Qualifiers: Cardiac valve disease etiology: etiology unspecified Qualified Code(s): I35.0 - Nonrheumatic aortic (valve) stenosis Is this a current diagnosis for this admission?: Yes Plan: * s/p TAVR 05/2020. Critical Time Critical Time (minutes): 45 Level of Care: ICU -: 1. The care of a critical patient is a dynamic process. This note is a ambulatory service representative synopsis but static in nature. The timeframe for treatments given in order is not necessarily the actual time these treatments may have been done. 2. This patient requires critical care secondary to ongoing requirements for therapy not offered or safe outside the critical care environment. Transfer to a lower level of care will result in altered life or limb morbidity and mortality. 3. Multidisciplinary rounds completed. 4. ABCDE bundle addressed.
[2020-08-14] MEDS: MONTELUKAST SODIUM 10 MG TABLET NG SCH (21:14)
[2020-08-14] MEDS: ATORVASTATIN CALCIUM 10 MG TABLET PO SCH (21:14)
--- NOTE | 2020-08-14 23:56 | XCELERA REPORT ---
[address] [address] Transthoracic Echocardiogram Report Name: JANEY WILSON Age: 79 yrs Gender: Male : 1940 Patient Status: Inpatient Patient Location: ICU^606^A Study Date: 08/14/2020 09:26 AM Height: 74 in Weight: 242 lb BSA: 2.4 m2 Procedure: A two-dimensional transthoracic echocardiogram with color flow and Doppler was performed. The study was technically difficult with many images being suboptimal in quality. Reason For Study: CHF, History: CHF, . Ordering Physician: RUTHIE SORENSEN Performed By: Jenny Groves Interpretation Summary plueral effusion noted The study was technically difficult with many images being suboptimal in quality. The left ventricle is normal in size. There is mild concentric left ventricular hypertrophy. Left ventricular systolic function is low normal. LV EF is 55% Doppler measurements suggest normal left ventricular diastolic function Probably no defenite wall motion abnormality, but cannot entirely exclude the possibility of apical hypoknesis. There is no thrombus. No ASD,VSD,or PFO seen. The right ventricle is grossly normal size. The right ventricle is not well visualized secondary to technical limitations The right atrium is normal. The left atrium is moderately dilated. There is no evidence of mitral valve prolapse. There is no mitral valve stenosis. Eccentric posteriorly direced Mid to moderate MR. There is no aortic valvular vegetation. There is mild aortic stenosis No aortic regurgitation is present. There is no tricuspid stenosis. There is a mild amount of tricuspid regurgitation There is moderate pulmonary hypertension by echo RVSP is 52 to 57 mmof HG , with RA mean of 5 to 10. There is no pulmonic valvular stenosis. There is a trace amount of pulmonic regurgitation The aortic root is not well visualized but is probably normal size. The inferior vena cava appeared normal and decreased > 50% with respiration (RAP 5-10 mmHg) There is no pericardial effusion. MMode/2D Measurements & Calculations RVDd: 2.8 cm LVIDd: 5.9 cm FS: 29.1 % Ao root diam: 2.4 cm IVSd: 1.6 cm LVIDs: 4.2 cm EDV(Teich): LVPWd: 1.2 cm 171.7 ml Ao root area: ESV(Teich): 4.6 cm2 77.2 ml EF(Teich): 55.0 % EDV(MOD-sp4): SV(MOD-sp4): 290.7 ml 161.5 ml ESV(MOD-sp4): 129.2 ml EF(MOD-sp4): 55.6 % Doppler Measurements & Calculations MV E max julian: MV dec slope: Ao V2 max: LV V1 max P.8 cm/sec 273.1 cm/sec 9.5 mmHg MV A max julian: 962.9 cm/sec2 Ao max PG: LV V1 mean P.4 cm/sec MV dec time: 29.8 mmHg 5.0 mmHg MV E/A: 1.1 0.15 sec Ao V2 mean: LV V1 max: 177.2 cm/sec 154.1 cm/sec Ao mean PG: LV V1 mean: 15.2 mmHg 103.8 cm/sec Ao V2 VTI: 55.3 cm LV V1 VTI: 32.8 cm MR max julian: PA V2 max: PI end-d julian: TR max julian: 733.4 cm/sec 124.4 cm/sec 178.3 cm/sec 344.5 cm/sec MR max PG: PA max P.2 mmHg TR max P.1 mmHg 47.5 mmHg Left Ventricle The left ventricle is normal in size. There is mild concentric left ventricular hypertrophy. Left ventricular systolic function is low normal. LV EF is 55%. Doppler measurements suggest normal left ventricular diastolic function. Probably no defenite wall motion abnormality, but cannot entirely exclude the possibility of apical hypoknesis. There is no thrombus. No ASD,VSD,or PFO seen. Right Ventricle The right ventricle is grossly normal size. The right ventricle is not well visualized secondary to technical limitations. Atria The right atrium is normal. The left atrium is moderately dilated. Mitral Valve There is no evidence of mitral valve prolapse. There is no mitral valve stenosis. Eccentric posteriorly direced Mid to moderate MR. Aortic Valve There is no aortic valvular vegetation. There is mild aortic stenosis. No aortic regurgitation is present. Tricuspid Valve There is no tricuspid stenosis. There is a mild amount of tricuspid regurgitation. There is moderate pulmonary hypertension by echo. RVSP is 52 to 57 mmof HG , with RA mean of 5 to 10. Pulmonic Valve There is no pulmonic valvular stenosis. There is a trace amount of pulmonic regurgitation. Great Vessels The aortic root is not well visualized but is probably normal size. The inferior vena cava appeared normal and decreased > 50% with respiration (RAP 5-10 mmHg). Effusions There is no pericardial effusion. : RUTHIE SORENSEN Lakshmi
[2020-08-15] MEDS: NITROGLYCERIN 2% OINTMENT 1 GM PACKET TP SCH ×5 (00:15→23:15)
[2020-08-15] MEDS: LABETALOL HCL INJ 20 MG/4 ML DISP.SYRIN IV PRN ×2 (02:00→15:49)
[2020-08-15 05:24] LABS: ANION GAP 12 (5-19); BLOOD UREA NITROGEN 43 mg/dL (7-20); CALCIUM 8.8 mg/dL (8.4-10.2); CARBON DIOXIDE 25 mmol/L (22-30); CHLORIDE 107 mmol/L (98-107); GLUCOSE 111 mg/dL (75-110); PHOSPHORUS 5.3 mg/dL (2.5-4.5); POTASSIUM 3.7 mmol/L (3.6-5.0)
[2020-08-15 05:28] LABS: ABSOLUTE LYMPHOCYTES (AUTO) 0.7 10^3/uL (0.5-4.7); ABSOLUTE MONOCYTES (AUTO) 0.8 10^3/uL (0.1-1.4); ABSOLUTE NEUT (AUTO) 5.8 10^3/uL (1.7-8.2); BASOPHILS % (AUTO) 0.4 % (0-2); HEMATOCRIT 28.1 % (37.9-51.0); HEMOGLOBIN 9.1 g/dL (13.5-17.0); LYMPHOCYTES % (AUTO) 9.5 % (13-45); MEAN CORPUSCULAR HEMOGLOBIN 25.5 pg (27.0-33.4); MEAN CORPUSCULAR HGB CONC 32.4 g/dL (32.0-36.0); MEAN CORPUSCULAR VOLUME 79 fl (80-97); PLATELET COUNT 178 10^3/uL (150-450); RED BLOOD COUNT 3.58 10^6/uL (4.35-5.55); RED CELL DISTRIBUTION WIDTH 16.3 % (11.5-14.0); SEGMENTED NEUTROPHILS % (AUTO) 79.1 % (42-78); TOTAL CELLS COUNTED % (AUTO) 100 %; WHITE BLOOD COUNT 7.4 10^3/uL (4.0-10.5)
[2020-08-15] MEDS: CARVEDILOL 6.25 MG TABLET PO SCH ×2 (06:36→18:19)
[2020-08-15] MEDS: HEPARIN SOD (PORCINE) 5,000 UNIT/ML 1 ML VIAL SUBCUT SCH ×3 (06:37→22:41)
[2020-08-15] MEDS: ALBUTEROL SULFATE 0.083% NEB 2.5 MG/3 ML AMPUL NEB SCH ×4 (08:55→20:15)
[2020-08-15] MEDS: TORSEMIDE 20 MG TABLET NG SCH (09:23)
[2020-08-15] MEDS: FUROSEMIDE INJ/PF 40 MG/4 ML SDV IV SCH ×2 (09:24→22:41)
[2020-08-15] MEDS: ASPIRIN 81 MG TABLET, ENT COATED PO SCH (09:24)
[2020-08-15] MEDS: TAMSULOSIN HCL 0.4 MG CAP.SR.24H PO SCH (09:24)
[2020-08-15] MEDS: FAMOTIDINE INJ/PF 20 MG/2 ML SDV IV SCH (09:24)
[2020-08-15] MEDS: CLOPIDOGREL BISULFATE 75 MG TABLET NG SCH (09:24)
[2020-08-15] MEDS: PREDNISONE 20 MG TABLET PO SCH (09:24)
[2020-08-15] MEDS ORDERED: CLOPIDOGREL BISULFATE 75 MG TABLET PO SCH (10:00)
--- NOTE | 2020-08-15 15:45 | PDOC CRITICAL CARE PROG REPORT ---
General Date:: 08/15/20 ICU Day:: 3 Hospital Day:: 3 Resuscitation Status: Full Code Events in the past 12 to 24 Hours:: This obese 79-year-old male was admitted to [facility] on 08/13/2020 after presenting to the emergency department via EMS with respiratory distress. Initially, his SPO2 was found to be in the 70s. He was unresponsive and intubated in the field. He was admitted to the ICU with a working diagnosis of acute compensated CHF and COPD exacerbation. 08/14: The patient self extubated prior to morning rounds. He is a little groggy, but awake and answers appropriately. Follows commands. He is currently on a nonrebreather mask, SPO2 100%. 08/15: The patient was noncompliant with CPAP. Could not tolerate wearing the mask. Mentating well. On 3 LPM via nasal cannula. Daughter at bedside; [facility] ed. Creatinine 2.4 this a.m. On Demadex 20 mg p.o. daily in addition to furosemide 40 mg IV every 12 hours. Review of systems relevant to events:: Respiratory: Respiratory distress, COPD exacerbation Cardiovascular: Congestive heart failure Neurologic: Altered mental status/unresponsive Reason for ICU Addmission:: Intubated with CHF - Medications: Medications reviewed and adjusted accordingly: Yes Vasopressors:: None Sedation:: Propofol/fentanyl Physical Exam Vital Signs: Temp Pulse Resp BP Pulse Ox 98.1 F 69 15 149/96 H 97 08/14/20 23:34 08/14/20 22:31 08/15/20 07:00 08/15/20 07:00 08/15/20 07:00 Intake & Output 08/14/20 08/15/20 08/16/20 06:59 06:59 06:59 Intake Total 413 580 Output Total 8384 5089 150 Balance -1487 -3165 -150 Weight 117.6 kg 108.3 kg Weight/Height Weight 108.3 kg Height 1.88 m General appearance: PRESENT: no acute distress, well-developed, well-nourished Head exam: PRESENT: atraumatic, normocephalic Eye exam: PRESENT: conjunctiva pink, EOMI, PERRLA. ABSENT: scleral icterus Neck exam: ABSENT: carotid bruit, JVD, lymphadenopathy, thyromegaly Respiratory exam: PRESENT: crackles - In the bases. ABSENT: rales, rhonchi, wheezes Cardiovascular exam: PRESENT: RRR. ABSENT: diastolic murmur, rubs, systolic murmur Pulses: PRESENT: normal dorsalis pedis pul GI/Abdominal exam: PRESENT: normal bowel sounds, soft. ABSENT: distended, guarding, mass, organolmegaly, rebound, tenderness Extremities exam: PRESENT: full ROM, pedal edema, +2 edema. ABSENT: calf tenderness, clubbing Musculoskeletal exam: PRESENT: normal inspection. ABSENT: deformity Neurological exam: PRESENT: alert, awake, oriented to person, oriented to place, oriented to time, oriented to situation, CN II-XII grossly intact. ABSENT: motor sensory deficit Psychiatric exam: ABSENT: agitated, anxious Skin exam: PRESENT: dry, intact, warm. ABSENT: cyanosis, rash Laboratory/Radiographs Laboratory Results: 08/15/20 04:16 08/15/20 04:16 08/15/20 08/15/20 04:16 04:16 WBC 7.4 RBC 3.58 L Hgb 9.1 L Hct 28.1 L MCV 79 L MCH 25.5 L MCHC 32.4 RDW 16.3 H Plt Count 178 Seg Neutrophils % 79.1 H Sodium 143.5 Potassium 3.7 Chloride 107 Carbon Dioxide 25 Anion Gap 12 BUN 43 H Creatinine 2.36 H Est GFR ( Amer) 32 L Glucose 111 H Calcium 8.8 Phosphorus 5.3 H Magnesium 2.6 H 08/13/20 08/13/20 12:29 12:29 Creatine Kinase 41 L Troponin I 0.068 NT-Pro-B Natriuret Pep 86686 H Impressions: Chest X-Ray 08/14/20 06:00 IMPRESSION: Tubes and lines as above. Otherwise unchanged radiographic appearance of the chest. All labs, radiographs, diagnostic studies and EKGs were personally reviewed: Yes In addition, reports of radiographic and diagnostic studies were read: Yes Assessment and Plan - Diagnosis (1) Acute hypoxemic respiratory failure Is this a current diagnosis for this admission?: Yes Plan: * Supplemental oxygen to maintain SPO2 93+%. * Wean to room air as tolerated. (2) Acute decompensated heart failure Is this a current diagnosis for this admission?: Yes Plan: * Continue diuresis. Remove Rose catheter. Should be able to resume home diuretic regimen tomorrow. * Of note, his home diuretic regimen includes: Zaroxolyn 2.5 mg p.o. q. Friday: Demadex 40 mg p.o. twice daily; Lasix 40 mg p.o. twice daily. * 2D echo (08/14): Pleural effusion was noted. LVEF 55% with normal diastolic function. No definite wall motion abnormality. LA was moderately dilated. Moderate pulmonary hypertension by echo. RVSP 52-57 mmHg. IVC appeared normal with > 50% respiratory phasic variation (RAP 5-10 mmHg). (3) COPD with exacerbation Is this a current diagnosis for this admission?: Yes Plan: * Of note, at home, he only uses albuterol aerosol as needed. * Currently, off steroids. * 2D echo showed moderate pulmonary hypertension without overt signs of volume overload. * Start albuterol/budesonide scheduled. (4) Hypertension Qualifiers: Hypertension type: essential hypertension Qualified Code(s): I10 - Essenti al (primary) hypertension Is this a current diagnosis for this admission?: Yes Plan: * Currently on carvedilol 12.5 mg p.o. twice daily; Nitropaste 1 inch every 6 hours; Demadex 20 mg p.o. daily; furosemide 40 mg IV every 12 hours; tamsulosin 0.4 mg p.o. daily. * Notably, the patient is on no antihypertensive medications (aside from diuretics and Flomax) at home. * Decrease Nitropaste to half inch every 6 hours. * Continue carvedilol. (5) Hypoalbuminemia Is this a current diagnosis for this admission?: Yes (6) Acute renal failure Qualifiers: Acute renal failure type: unspecified Qualified Code(s): N17.9 - Acute kidney failure, unspecified Is this a current diagnosis for this admission?: Yes Plan: * Monitor urine output. * Avoid nephrotoxic drugs. * Renal dosing of medications. (7) Obesity (BMI 30-39.9) Is this a current diagnosis for this admission?: Yes (8) Aortic stenosis Qualifiers: Cardiac valve disease etiology: etiology unspecified Qualified Code(s): I35.0 - Nonrheumatic aortic (valve) stenosis Is this a current diagnosis for this admission?: Yes Plan Summary: Okay to transfer to floor from pulmonary/critical care standpoint. Critical Time Critical Time (minutes): 45 Level of Care: ICU -: 1. The care of a critical patient is a dynamic process. This note is a specialty sales representative synopsis but static in nature. The timeframe for treatments given in order is not necessarily the actual time these treatments may have been done. 2. This patient requires critical care secondary to ongoing requirements for therapy not offered or safe outside the critical care environment. Transfer to a lower level of care will result in altered life or limb morbidity and mortality. 3. Multidisciplinary rounds completed. 4. ABCDE bundle addressed.
[2020-08-15] MEDS ORDERED: HALOPERIDOL LACTATE INJ 5 MG/1 ML VIAL ONE (16:16)
[2020-08-15] MEDS ORDERED: ZIPRASIDONE MESYLATE INJ/PF 20 MG SDV IM ONE ×2 (16:37→18:00)
[2020-08-15] MEDS ORDERED: HALOPERIDOL LACTATE INJ 5 MG/1 ML VIAL IV ONE (17:30)
[2020-08-15] MEDS: DEXMEDETOMIDINE IN NS 400 MCG/100 ML RTUPB IV PRN ×2 (18:30→23:16)
[2020-08-15] MEDS ORDERED: DEXMEDETOMIDINE IN 0.9 % NACL 400 MCG/100 ML RTUPB IV ONE (18:31)
[2020-08-15] MEDS: ATORVASTATIN CALCIUM 10 MG TABLET PO SCH (22:31)
[2020-08-15] MEDS: MONTELUKAST SODIUM 10 MG TABLET NG SCH (22:31)
[2020-08-16] MEDS ORDERED: HYDRALAZINE HCL INJ/PF 20 MG/1 ML SDV ONE (00:23)
[2020-08-16] MEDS ORDERED: HYDRALAZINE HCL INJ/PF 20 MG/1 ML SDV IV ONE ×2 (01:00→03:42)
[2020-08-16] MEDS: NITROGLYCERIN 2% OINTMENT 1 GM PACKET TP SCH (06:16)
[2020-08-16] MEDS: HEPARIN SOD (PORCINE) 5,000 UNIT/ML 1 ML VIAL SUBCUT SCH ×3 (06:16→22:04)
[2020-08-16] MEDS: CARVEDILOL 6.25 MG TABLET PO SCH ×3 (06:16→19:06)
[2020-08-16 06:26] LABS: ABSOLUTE BASOPHILS # (AUTO) 0.1 10^3/uL (0.0-0.2); ABSOLUTE LYMPHOCYTES (AUTO) 0.9 10^3/uL (0.5-4.7); ABSOLUTE MONOCYTES (AUTO) 0.7 10^3/uL (0.1-1.4); ABSOLUTE NEUT (AUTO) 4.5 10^3/uL (1.7-8.2); BASOPHILS % (AUTO) 0.8 % (0-2); EOSINOPHILS % (AUTO) 0.1 % (0-6); HEMATOCRIT 26.3 % (37.9-51.0); HEMOGLOBIN 8.6 g/dL (13.5-17.0); LYMPHOCYTES % (AUTO) 14.7 % (13-45); MEAN CORPUSCULAR HEMOGLOBIN 25.4 pg (27.0-33.4); MEAN CORPUSCULAR HGB CONC 32.8 g/dL (32.0-36.0); MEAN CORPUSCULAR VOLUME 77 fl (80-97); MONOCYTES % (AUTO) 11.7 % (3-13); PLATELET COUNT 179 10^3/uL (150-450); RED CELL DISTRIBUTION WIDTH 15.9 % (11.5-14.0); SEGMENTED NEUTROPHILS % (AUTO) 72.7 % (42-78); TOTAL CELLS COUNTED % (AUTO) 100 %; WHITE BLOOD COUNT 6.2 10^3/uL (4.0-10.5)
[2020-08-16 06:43] LABS: ANION GAP 7 (5-19); BLOOD UREA NITROGEN 56 mg/dL (7-20); CALCIUM 8.6 mg/dL (8.4-10.2); CARBON DIOXIDE 28 mmol/L (22-30); CHLORIDE 107 mmol/L (98-107); GLUCOSE 109 mg/dL (75-110); PHOSPHORUS 4.6 mg/dL (2.5-4.5); POTASSIUM 3.4 mmol/L (3.6-5.0)
[2020-08-16] MEDS ORDERED: POTASSIUM CHLORIDE 20 MEQ PACKET PO ONE (07:54)
[2020-08-16] MEDS: ALBUTEROL SULFATE 0.083% NEB 2.5 MG/3 ML AMPUL NEB SCH ×4 (08:20→20:01)
[2020-08-16] MEDS ORDERED: PREDNISONE 20 MG TABLET PO SCH (10:00)
[2020-08-16] MEDS: FUROSEMIDE INJ/PF 40 MG/4 ML SDV IV SCH ×3 (10:23→22:07)
[2020-08-16] MEDS: LABETALOL HCL INJ 20 MG/4 ML DISP.SYRIN IV PRN ×2 (10:24→16:53)
[2020-08-16] MEDS: FAMOTIDINE INJ/PF 20 MG/2 ML SDV IV SCH (10:24)
[2020-08-16] MEDS: CLOPIDOGREL BISULFATE 75 MG TABLET NG SCH (10:28)
[2020-08-16] MEDS: TAMSULOSIN HCL 0.4 MG CAP.SR.24H PO SCH (10:28)
[2020-08-16] MEDS: ASPIRIN 81 MG TABLET, ENT COATED PO SCH (10:28)
[2020-08-16] MEDS: TORSEMIDE 20 MG TABLET NG SCH (10:29)
--- NOTE | 2020-08-16 10:45 | EKG REPORT ---
SEVERITY:- ABNORMAL ECG - SINUS RHYTHM ATRIAL PREMATURE COMPLEX IVCD, CONSIDER ATYPICAL RBBB LVH WITH SECONDARY REPOLARIZATION ABNORMALITY : Confirmed by: Cira Neil MD 16-Aug-2020 10:44:48
--- NOTE | 2020-08-16 12:19 | PDOC CRITICAL CARE PROG REPORT ---
General Date:: 08/16/20 ICU Day:: 4 Hospital Day:: 4 Resuscitation Status: Full Code Events in the past 12 to 24 Hours:: This obese 79-year-old male was admitted to [facility] on 08/13/2020 after presenting to the emergency department via EMS with respiratory distress. Initially, his SPO2 was found to be in the 70s. He was unresponsive and intubated in the field. He was admitted to the ICU with a working diagnosis of acute compensated CHF and COPD exacerbation. 08/14: The patient self extubated prior to morning rounds. He is a little groggy, but awake and answers appropriately. Follows commands. He is currently on a nonrebreather mask, SPO2 100%. 08/15: The patient was noncompliant with CPAP. Could not tolerate wearing the mask. Mentating well. On 3 LPM via nasal cannula. Daughter at bedside; [facility] ed. Creatinine 2.4 this a.m. On Demadex 20 mg p.o. daily in addition to furosemide 40 mg IV every 12 hours. 08/16: Rose catheter was removed yesterday. Had urinary retention that prompted reinsertion. Had an episode of sundowning yesterday evening. Had not slept at all on the previous night. Got 1 dose of Haldol 5 mg IV followed by Geodon 10 mg IM. 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 He slept comfortably all night long. Now resting comfortably in the bed. Apologetic over his behavior from the previous day. Review of systems relevant to events:: Respiratory: Respiratory distress, COPD exacerbation Cardiovascular: Congestive heart failure Neurologic: Altered mental status/unresponsive Reason for ICU Addmission:: Intubated with CHF - Medications: Medications reviewed and adjusted accordingly: Yes Vasopressors:: None Sedation:: Propofol/fentanyl Physical Exam Vital Signs: Temp Pulse Resp BP Pulse Ox 97.5 F 69 22 H 133/46 H 100 08/16/20 05:28 08/15/20 21:15 08/16/20 06:01 08/16/20 06:00 08/16/20 06:01 Intake & Output 08/15/20 08/16/20 08/17/20 06:59 06:59 06:59 Intake Total 580 773 Output Total 8581 5311 Balance -4753 -2120 Weight 108.3 kg 108.3 kg Weight/Height Weight 108.3 kg Height 1.88 m General appearance: PRESENT: no acute distress, obese, well-developed, well- nourished Head exam: PRESENT: atraumatic, normocephalic Eye exam: PRESENT: conjunctiva pink, EOMI, PERRLA. ABSENT: scleral icterus Neck exam: ABSENT: carotid bruit, JVD, lymphadenopathy, thyromegaly Respiratory exam: PRESENT: clear to auscultation eddi. ABSENT: rales, rhonchi, wheezes Cardiovascular exam: PRESENT: RRR. ABSENT: diastolic murmur, rubs, systolic murmur Pulses: PRESENT: normal dorsalis pedis pul GI/Abdominal exam: PRESENT: normal bowel sounds, soft. ABSENT: distended, guarding, mass, organolmegaly, rebound, tenderness Gentrourinary exam: PRESENT: indwelling catheter Extremities exam: PRESENT: full ROM, pedal edema, +2 edema. ABSENT: calf tenderness, clubbing Musculoskeletal exam: PRESENT: normal inspection. ABSENT: deformity Neurological exam: PRESENT: alert, awake, oriented to person, oriented to place, oriented to time, oriented to situation, CN II-XII grossly intact. ABSENT: motor sensory deficit Psychiatric exam: PRESENT: appropriate affect, normal mood. ABSENT: agitated, anxious, homicidal ideation, suicidal ideation Laboratory/Radiographs Laboratory Results: 08/16/20 06:15 08/16/20 06:15 08/16/20 08/16/20 08/16/20 04:00 04:00 06:15 WBC RBC Hgb Hct MCV MCH MCHC RDW Plt Count Seg Neutrophils % Not Reportable Sodium Cancelled 142.2 Potassium Cancelled 3.4 L Chloride Cancelled 107 Carbon Dioxide Cancelled 28 Anion Gap Cancelled 7 BUN Cancelled 56 H Creatinine Cancelled 2.13 H Est GFR ( Amer) Cancelled 36 L Est GFR (Non-Af Amer) Cancelled Glucose Cancelled 109 Calcium Cancelled 8.6 Phosphorus Cancelled 4.6 H Magnesium Cancelled 2.6 H 08/16/20 06:15 WBC 6.2 RBC 3.40 L Hgb 8.6 L Hct 26.3 L MCV 77 L MCH 25.4 L MCHC 32.8 RDW 15.9 H Plt Count 179 Seg Neutrophils % 72.7 Sodium Potassium Chloride Carbon Dioxide Anion Gap BUN Creatinine Est GFR ( Amer) Est GFR (Non-Af Amer) Glucose Calcium Phosphorus Magnesium 08/13/20 08/13/20 08/16/20 12:29 12:29 04:00 Creatine Kinase 41 L Troponin I 0.068 NT-Pro-B Natriuret Pep 62505 H Cancelled 08/16/20 06:15 Creatine Kinase Troponin I NT-Pro-B Natriuret Pep 96516 H Impressions: Chest X-Ray 08/14/20 06:00 IMPRESSION: Tubes and lines as above. Otherwise unchanged radiographic appearance of the chest. All labs, radiographs, diagnostic studies and EKGs were personally reviewed: Yes In addition, reports of radiographic and diagnostic studies were read: Yes Assessment and Plan - Diagnosis (1) Acute hypoxemic respiratory failure Is this a current diagnosis for this admission?: Yes Plan: * Supplemental oxygen to maintain SPO2 93+%. * Wean to room air as tolerated. (2) Hypokalemia Is this a current diagnosis for this admission?: Yes Plan: * Secondary to ongoing diuretic therapy. * Replete. (3) Acute decompensated heart failure Is this a current diagnosis for this admission?: Yes Plan: * Continue diuresis. Remove Rose catheter. Should be able to resume home diuretic regimen tomorrow. * Of note, his home diuretic regimen includes: Zaroxolyn 2.5 mg p.o. q. Friday: Demadex 40 mg p.o. twice daily; Lasix 40 mg p.o. twice daily. * 2D echo (08/14): Pleural effusion was noted. LVEF 55% with normal diastolic function. No definite wall motion abnormality. LA was moderately dilated. Moderate pulmonary hypertension by echo. RVSP 52-57 mmHg. IVC appeared normal with > 50% respiratory phasic variation (RAP 5-10 mmHg). (4) Hypertension Qualifiers: Hypertension type: essential hypertension Qualified Code(s): I10 - Essential (primary) hypertension Is this a current diagnosis for this admission?: Yes Plan: * Currently on carvedilol 12.5 mg p.o. twice daily; Nitropaste 1 inch every 6 hours; Demadex 20 mg p.o. daily; furosemide 40 mg IV every 12 hours; tamsulosin 0.4 mg p.o. daily. * Notably, the patient is on no antihypertensive medications (aside from diuretics and Flomax) at home. * Decrease Nitropaste to half inch every 6 hours. * Continue carvedilol. (5) COPD with exacerbation Is this a current diagnosis for this admission?: Yes Plan: * Of note, at home, he only uses albuterol aerosol as needed. * Currently, on prednisone 60 mg p.o. daily (previously incorrectly documented as off steroids). Decrease prednisone to 40 mg p.o. daily. * 2D echo showed moderate pulmonary hypertension without overt signs of volume overload. * Continue albuterol/budesonide scheduled. (6) Hypoalbuminemia Is this a current diagnosis for this admission?: Yes (7) Acute renal failure Qualifiers: Acute renal failure type: unspecified Qualified Code(s): N17.9 - Acute kidney failure, unspecified Is this a current diagnosis for this admission?: Yes (8) Obesity (BMI 30-39.9) Is this a current diagnosis for this admission?: Yes (9) Aortic stenosis Qualifiers: Cardiac valve disease etiology: etiology unspecified Qualified Code(s): I35.0 - Nonrheumatic aortic (valve) stenosis Is this a current diagnosis for this admission?: Yes Plan Summary: Okay to transfer to floor from pulmonary/critical care standpoint. Critical Time Critical Time (minutes): 45 Level of Care: ICU -: 1. The care of a critical patient is a dynamic process. This note is a outbound sales representative synopsis but static in nature. The timeframe for treatments given in order is not necessarily the actual time these treatments may have been done. 2. This patient requires critical care secondary to ongoing requirements for therapy not offered or safe outside the critical care environment. Transfer to a lower level of care will result in altered life or limb morbidity and mortality. 3. Multidisciplinary rounds completed. 4. ABCDE bundle addressed.
[2020-08-16] MEDS ORDERED: HYDRALAZINE HCL INJ/PF 20 MG/1 ML SDV IV PRN (12:24)
[2020-08-16] MEDS ORDERED: HALOPERIDOL LACTATE INJ 5 MG/1 ML VIAL ONE (17:05)
[2020-08-16] MEDS ORDERED: DEXMEDETOMIDINE IN NS 400 MCG/100 ML RTUPB IV PRN (17:23)
[2020-08-16] MEDS ORDERED: HALOPERIDOL LACTATE INJ 5 MG/1 ML VIAL IV ONE (17:45)
[2020-08-16] MEDS: ATORVASTATIN CALCIUM 10 MG TABLET PO SCH (22:05)
[2020-08-16] MEDS: MONTELUKAST SODIUM 10 MG TABLET NG SCH (22:05)
[2020-08-17 04:38] LABS: ABSOLUTE LYMPHOCYTES (AUTO) 1.3 10^3/uL (0.5-4.7); ABSOLUTE MONOCYTES (AUTO) 1.2 10^3/uL (0.1-1.4); ABSOLUTE NEUT (AUTO) 6.6 10^3/uL (1.7-8.2); BASOPHILS % (AUTO) 0.4 % (0-2); HEMATOCRIT 32.4 % (37.9-51.0); HEMOGLOBIN 10.3 g/dL (13.5-17.0); MEAN CORPUSCULAR HEMOGLOBIN 24.6 pg (27.0-33.4); MEAN CORPUSCULAR HGB CONC 31.8 g/dL (32.0-36.0); MEAN CORPUSCULAR VOLUME 78 fl (80-97); MONOCYTES % (AUTO) 13.5 % (3-13); PLATELET COUNT 252 10^3/uL (150-450); RED BLOOD COUNT 4.18 10^6/uL (4.35-5.55); SEGMENTED NEUTROPHILS % (AUTO) 72.1 % (42-78); TOTAL CELLS COUNTED % (AUTO) 100 %; WHITE BLOOD COUNT 9.1 10^3/uL (4.0-10.5)
[2020-08-17 05:08] LABS: ANION GAP 15 (5-19); BLOOD UREA NITROGEN 62 mg/dL (7-20); CALCIUM 9.2 mg/dL (8.4-10.2); CARBON DIOXIDE 26 mmol/L (22-30); CHLORIDE 104 mmol/L (98-107); GLUCOSE 92 mg/dL (75-110); PHOSPHORUS 4.5 mg/dL (2.5-4.5); POTASSIUM 3.8 mmol/L (3.6-5.0)
[2020-08-17] MEDS: CARVEDILOL 6.25 MG TABLET PO SCH (05:11)
[2020-08-17] MEDS: HEPARIN SOD (PORCINE) 5,000 UNIT/ML 1 ML VIAL SUBCUT SCH ×3 (05:13→23:41)
[2020-08-17] MEDS: ALBUTEROL SULFATE 0.083% NEB 2.5 MG/3 ML AMPUL NEB SCH ×4 (08:30→20:37)
[2020-08-17] MEDS: ASPIRIN 81 MG TABLET, ENT COATED PO SCH (10:08)
[2020-08-17] MEDS: CLOPIDOGREL BISULFATE 75 MG TABLET NG SCH (10:08)
[2020-08-17] MEDS: FAMOTIDINE INJ/PF 20 MG/2 ML SDV IV SCH (10:09)
[2020-08-17] MEDS: FUROSEMIDE INJ/PF 40 MG/4 ML SDV IV SCH ×2 (10:09→17:19)
[2020-08-17] MEDS: TAMSULOSIN HCL 0.4 MG CAP.SR.24H PO SCH (10:09)
[2020-08-17] MEDS: PREDNISONE 20 MG TABLET PO SCH (10:09)
[2020-08-17] MEDS ORDERED: POTASSIUM CHLORIDE 20 MEQ PACKET PO ONE (12:36)
[2020-08-17] MEDS ORDERED: QUETIAPINE FUMARATE 25 MG TABLET PO ONE (13:00)
[2020-08-17] MEDS ORDERED: INFLUENZA QUAD (6MOS+) 2020-21 VAC 0.5 ML SYR IM ONE (14:45)
--- NOTE | 2020-08-17 15:01 | PDOC CRITICAL CARE PROG REPORT ---
General Date:: 08/17/20 ICU Day:: 5 Hospital Day:: 5 Resuscitation Status: Full Code Events in the past 12 to 24 Hours:: This obese 79-year-old male [facility] after presenting to the emergency department via EMS with respiratory distress. Initially, his SPO2 was found to be in the 70s. He was unresponsive and intubated in the field. He was admitted to the ICU with a working diagnosis of acute compensated CHF and COPD exacerbation. 08/14: The patient self extubated prior to morning rounds. He is a little groggy, but awake and answers appropriately. Follows commands. He is currently on a nonrebreather mask, SPO2 100%. 08/15: The patient was noncompliant with CPAP. Could not tolerate wearing the mask. Mentating well. On 3 LPM via nasal cannula. Daughter at bedside; [facility] ed. Creatinine 2.4 this a.m. On Demadex 20 mg p.o. daily in addition to furosemide 40 mg IV every 12 hours. 08/16: Rose catheter was removed yesterday. Had urinary retention that prompted reinsertion. Had an episode of sundowning yesterday evening. Had not slept at all on the previous night. Got 1 dose of Haldol 5 mg IV followed by Geodon 10 mg IM. He was started on Precedex infusion, which was weaned off during tap grinder. He slept comfortably all night long. Now resting comfortably in the bed. Apologetic over his behavior from the previous day. 08/17: Doing well from a respiratory standpoint. Blood pressure (471270/[id number]) still elevated, worse with psychomotor agitation and sundowning. Off Precedex. Haldol does not seem to be effective in controlling his sundowning. Geodon does have helpful effects, but the patient understandably does not like IM administration. Now resting comfortably in bed. Review of systems relevant to events:: Respiratory: Respiratory distress, COPD exacerbation Cardiovascular: Congestive heart failure Neurologic: Altered mental status/unresponsive Reason for ICU Addmission:: Intubated with CHF - Medications: Medications reviewed and adjusted accordingly: Yes Vasopressors:: None Sedation:: Propofol/fentanyl Physical Exam Vital Signs: Temp Pulse Resp BP Pulse Ox 97.7 F 66 19 128/34 H 95 08/17/20 10:00 08/17/20 11:31 08/17/20 11:00 08/17/20 10:46 08/17/20 11:00 Intake & Output 08/16/20 08/17/20 08/18/20 06:59 06:59 06:59 Intake Total 494 16 Output Total 2625 2600 0 Balance -2131 -2584 0 Weight 108.3 kg 105.4 kg Weight/Height Weight 105.4 kg Height 1.88 m General appearance: PRESENT: no acute distress, well-developed, well-nourished Head exam: PRESENT: atraumatic, normocephalic Eye exam: PRESENT: conjunctiva pink, EOMI, PERRLA. ABSENT: scleral icterus Mouth exam: PRESENT: moist, tongue midline Neck exam: ABSENT: carotid bruit, JVD, lymphadenopathy, thyromegaly Respiratory exam: PRESENT: crackles. ABSENT: rales, rhonchi, wheezes Cardiovascular exam: PRESENT: RRR. ABSENT: diastolic murmur, rubs, systolic murmur Pulses: PRESENT: normal dorsalis pedis pul GI/Abdominal exam: PRESENT: normal bowel sounds, soft. ABSENT: distended, guarding, mass, organolmegaly, rebound, tenderness Gentrourinary exam: PRESENT: indwelling catheter Extremities exam: PRESENT: full ROM, pedal edema, +2 edema. ABSENT: calf tenderness, clubbing Musculoskeletal exam: PRESENT: normal inspection. ABSENT: deformity Neurological exam: PRESENT: alert, awake, oriented to person, oriented to place, oriented to time, oriented to situation, CN II-XII grossly intact. ABSENT: motor sensory deficit Psychiatric exam: ABSENT: agitated, anxious Skin exam: PRESENT: abrasion, dry, intact, warm. ABSENT: cyanosis, rash Laboratory/Radiographs Laboratory Results: 08/17/20 04:17 08/17/20 04:17 08/17/20 08/17/20 04:17 04:17 WBC 9.1 RBC 4.18 L Hgb 10.3 L Hct 32.4 L MCV 78 L MCH 24.6 L MCHC 31.8 L RDW 16.0 H Plt Count 252 Seg Neutrophils % 72.1 Sodium 145.0 Potassium 3.8 Chloride 104 Carbon Dioxide 26 Anion Gap 15 BUN 62 H Creatinine 2.45 H Est GFR ( Amer) 31 L Glucose 92 Calcium 9.2 Phosphorus 4.5 Magnesium 2.6 H 08/13/20 08/13/20 08/16/20 12:29 12:29 04:00 Creatine Kinase 41 L Troponin I 0.068 NT-Pro-B Natriuret Pep 81511 H Cancelled 08/16/20 08/17/20 06:15 04:17 Creatine Kinase Troponin I NT-Pro-B Natriuret Pep 66830 H 42332 H Impressions: Chest X-Ray 08/14/20 06:00 IMPRESSION: Tubes and lines as above. Otherwise unchanged radiographic appearance of the chest. All labs, radiographs, diagnostic studies and EKGs were personally reviewed: Yes In addition, reports of radiographic and diagnostic studies were read: Yes Assessment and Plan - Diagnosis (1) Acute hypoxemic respiratory failure Is this a current diagnosis for this admission?: Yes Plan: * Supplemental oxygen to maintain SPO2 93+%. * Wean to room air as tolerated. (2) Acute decompensated heart failure Is this a current diagnosis for this admission?: Yes (3) Hypertension Qualifiers: Hypertension type: essential hypertension Qualified Code(s): I10 - Essential (primary) hypertension Is this a current diagnosis for this admission?: Yes Plan: * Currently on carvedilol 12.5 mg p.o. twice daily; Nitropaste 1 inch every 6 hours; Demadex 20 mg p.o. daily; furosemide 40 mg IV every 12 hours; tamsulosin 0.4 mg p.o. daily. * Notably, the patient is on no antihypertensive medications (aside from diuretics and Flomax) at home. * Start Norvasc 10 mg p.o. daily. * Stop Nitropaste. * Continue carvedilol. (4) COPD with exacerbation Is this a current diagnosis for this admission?: Yes Plan: * Of note, at home, he only uses albuterol aerosol as needed. * Decrease prednisone to 20 mg p.o. daily. * 2D echo showed moderate pulmonary hypertension without overt signs of volume overload. * Continue albuterol/budesonide scheduled. (5) Is this a current diagnosis for this admission?: Yes Plan: * Trial of Seroquel 25 mg p.o. daily. (6) Hypoalbuminemia Is this a current diagnosis for this admission?: Yes (7) Acute renal failure Qualifiers: Acute renal failure type: unspecified Qualified Code(s): N17.9 - Acute kidney failure, unspecified Is this a current diagnosis for this admission?: Yes (8) Obesity (BMI 30-39.9) Is this a current diagnosis for this admission?: Yes (9) Aortic stenosis Qualifiers: Cardiac valve disease etiology: etiology unspecified Qualified Code(s): I35.0 - Nonrheumatic aortic (valve) stenosis Is this a current diagnosis for this admission?: Yes (10) Hypokalemia Is this a current diagnosis for this admission?: Yes Critical Time Critical Time (minutes): 45 Level of Care: ICU -: 1. The care of a critical patient is a dynamic process. This note is a sales representative education courses synopsis but static in nature. The timeframe for treatments given in order is not necessarily the actual time these treatments may have been done. 2. This patient requires critical care secondary to ongoing requirements for therapy not offered or safe outside the critical care environment. Transfer to a lower level of care will result in altered life or limb morbidity and mortality. 3. Multidisciplinary rounds completed. 4. ABCDE bundle addressed.
[2020-08-17] MEDS ORDERED: AMLODIPINE BESYLATE 10 MG TABLET PO ONE (16:00)
[2020-08-17] MEDS: CARVEDILOL 12.5 MG TABLET PO SCH (17:19)
[2020-08-17] MEDS: ENALAPRILAT DIHYDRATE INJ/PF 1.25 MG/1 ML SDV IV SCH (17:19)
[2020-08-17] MEDS: ATORVASTATIN CALCIUM 10 MG TABLET PO SCH (23:41)
[2020-08-17] MEDS: MONTELUKAST SODIUM 10 MG TABLET NG SCH (23:42)
[2020-08-18] MEDS: ENALAPRILAT DIHYDRATE INJ/PF 1.25 MG/1 ML SDV IV SCH ×4 (01:08→17:12)
[2020-08-18] MEDS: FUROSEMIDE INJ/PF 40 MG/4 ML SDV IV SCH ×4 (01:09→17:12)
[2020-08-18] MEDS: HEPARIN SOD (PORCINE) 5,000 UNIT/ML 1 ML VIAL SUBCUT SCH ×3 (05:10→21:40)
[2020-08-18] MEDS: CARVEDILOL 12.5 MG TABLET PO SCH ×2 (05:54→17:12)
[2020-08-18] MEDS: ALBUTEROL SULFATE 0.083% NEB 2.5 MG/3 ML AMPUL NEB SCH ×4 (08:45→21:12)
--- NOTE | 2020-08-18 11:01 | PDOC PROGRESS REPORT ---
Subjective Date:: 08/18/20 Subjective:: 79-year-old male was admitted to [facility] on 0 after presenting to the emergency department via EMS with respiratory distress. Initially, his SPO2 was found to be in the 70s. He was unresponsive and intubated in the field. He was admitted to the ICU with a working diagnosis of acute compensated CHF and COPD exacerbation. 08/14: The patient self extubated prior to morning rounds. He is a little groggy, but awake and answers appropriately. Follows commands. He is currently on a nonrebreather mask, SPO2 100%. 08/15: The patient was noncompliant with CPAP. Could not tolerate wearing the mask. Mentating well. On 3 LPM via nasal cannula. Daughter at bedside; updated. Creatinine 2.4 this a.m. On Demadex 20 mg p.o. daily in addition to furosemide 40 mg IV every 12 hours. 08/16: Rose catheter was removed yesterday. Had urinary retention that prompted reinsertion. Had an episode of sundowning yesterday evening. Had not slept at all on the previous night. Got 1 dose of Haldol 5 mg IV followed by Geodon 10 mg IM. He was started on Precedex infusion, which was weaned off during casino shift manager. He slept comfortably all night long. Now resting comfortably in the bed. Apologetic over his behavior from the previous day. 08/17: Doing well from a respiratory standpoint. Blood pressure (157188/[id number]) still elevated, worse with psychomotor agitation and sundowning. Off Precedex. Haldol does not seem to be effective in controlling his sundowning. Geodon does have helpful effects, but the patient understandably does not like IM administration. Now resting comfortably in bed. 08/18/2020-patient is comfortably in the room walking around. Not in distress. Expressing desire to go home. He was downgraded from ICU today. Patient may be able to go home tomorrow. Patient has a severe sundowning he is under one -to-one observation. He received Seroquel 25 mg p.o. last night slept good. Reason For Visit: ACUTE RESPIRATORY FAILURE FROM CHF. ALSO COPD. INT Physical Exam Vital Signs: Temp Pulse Resp BP Pulse Ox 98.6 F 55 L 15 129/65 H 97 08/17/20 19:53 08/18/20 04:27 08/18/20 08:00 08/18/20 07:51 08/17/20 20:37 Intake & Output 08/17/20 08/18/20 08/19/20 06:59 06:59 06:59 Intake Total 16 Output Total 2600 700 Balance -2584 -700 Weight 105.4 kg 104.1 kg General appearance: PRESENT: no acute distress, cooperative, well-developed Head exam: PRESENT: atraumatic Eye exam: PRESENT: conjunctiva pink, PERRLA Mouth exam: PRESENT: moist, tongue midline Teeth exam: PRESENT: poor dentation Neck exam: ABSENT: carotid bruit, JVD, lymphadenopathy, thyromegaly Respiratory exam: PRESENT: decreased breath sounds Cardiovascular exam: PRESENT: RRR. ABSENT: diastolic murmur, rubs, systolic murmur GI/Abdominal exam: PRESENT: normal bowel sounds, soft. ABSENT: distended, guarding, mass, organolmegaly, rebound, tenderness Rectal exam: PRESENT: deferred Extremities exam: PRESENT: full ROM. ABSENT: calf tenderness, clubbing, pedal edema Neurological exam: PRESENT: alert, awake, oriented to person, oriented to place, oriented to time, oriented to situation, CN II-XII grossly intact. ABSENT: motor sensory deficit Psychiatric exam: PRESENT: appropriate affect, normal mood. ABSENT: homicidal ideation, suicidal ideation Results Laboratory Results: 08/17/20 04:17 08/17/20 04:17 08/13/20 08/13/20 08/16/20 12:29 12:29 04:00 Creatine Kinase 41 L Troponin I 0.068 NT-Pro-B Natriuret Pep 27000 H Cancelled 08/16/20 08/17/20 06:15 04:17 Creatine Kinase Troponin I NT-Pro-B Natriuret Pep 36738 H 51905 H Impressions: Chest X-Ray 08/14/20 06:00 IMPRESSION: Tubes and lines as above. Otherwise unchanged radiographic appearance of the chest. Assessment and Plan - Diagnosis (1) Acute hypoxemic respiratory failure Is this a current diagnosis for this admission?: Yes Plan: * Supplemental oxygen to maintain SPO2 93+%. * Wean to room air as tolerated. * * * 08/18/2020-patient admitted for acute hypoxic respiratory failure secondary to CHF exacerbation resolved. Pulse ox is 96% room air today. (2) Acute decompensated heart failure Is this a current diagnosis for this admission?: Yes Plan: * Continue diuresis. Remove Rose catheter. Should be able to resume home diuretic regimen tomorrow. * Of note, his home diuretic regimen includes: Zaroxolyn 2.5 mg p.o. q. Friday: Demadex 40 mg p.o. twice daily; Lasix 40 mg p.o. twice daily. * 2D echo (08/14): Pleural effusion was noted. LVEF 55% with normal diastolic function. No definite wall motion abnormality. LA was moderately dilated. Moderate pulmonary hypertension by echo. RVSP 52-57 mmHg. IVC appeared normal with > 50% respiratory phasic variation (RAP 5-10 mmHg). (3) COPD with exacerbation Is this a current diagnosis for this admission?: Yes Plan: * Of note, at home, he only uses albuterol aerosol as needed. * Decrease prednisone to 20 mg p.o. daily. * 2D echo showed moderate pulmonary hypertension without overt signs of volume overload. * Continue albuterol/budesonide scheduled. * * * 08/18/2020-patient is doing well. Walking in the room without oxygen supplementations. Pulse ox is 96% room air. On examination chest bilateral entry was decreased no wheezing no crepitations present. (4) Hypertension Qualifiers: Hypertension type: essential hypertension Qualified Code(s): I10 - Essential (primary) hypertension Is this a current diagnosis for this admission?: No Plan: * Currently on carvedilol 12.5 mg p.o. twice daily; Nitropaste 1 inch every 6 hours; Demadex 20 mg p.o. daily; furosemide 40 mg IV every 12 hours; tamsulosin 0.4 mg p.o. daily. * Notably, the patient is on no antihypertensive medications (aside from diuretics and Flomax) at home. * Start Norvasc 10 mg p.o. daily. * Stop Nitropaste. * Continue carvedilol. * * * 08/18/2020-blood pressure today is 129/65. Heart rate is in the 50s. Asymptomatic. (5) Obesity (BMI 30-39.9) Is this a current diagnosis for this admission?: Yes (6) Is this a current diagnosis for this admission?: Yes Plan: * Trial of Seroquel 25 mg p.o. daily. 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 - Time Anticipated Discharge Disposition: Home, Self Care Anticipated Discharge Timeframe: within 24 hours
[2020-08-18] MEDS: CLOPIDOGREL BISULFATE 75 MG TABLET NG SCH (11:39)
[2020-08-18] MEDS: TAMSULOSIN HCL 0.4 MG CAP.SR.24H PO SCH (11:39)
[2020-08-18] MEDS: AMLODIPINE BESYLATE 10 MG TABLET PO SCH (11:39)
[2020-08-18] MEDS: ASPIRIN 81 MG TABLET, ENT COATED PO SCH (11:39)
[2020-08-18] MEDS: FAMOTIDINE INJ/PF 20 MG/2 ML SDV IV SCH (11:40)
[2020-08-18] MEDS: PREDNISONE 20 MG TABLET PO SCH (11:41)
[2020-08-18] MEDS: ATORVASTATIN CALCIUM 10 MG TABLET PO SCH (21:36)
[2020-08-18] MEDS: MONTELUKAST SODIUM 10 MG TABLET NG SCH (21:36)
[2020-08-19] MEDS: ENALAPRILAT DIHYDRATE INJ/PF 1.25 MG/1 ML SDV IV SCH ×2 (00:28→05:44)
[2020-08-19] MEDS: FUROSEMIDE INJ/PF 40 MG/4 ML SDV IV SCH (03:48)
[2020-08-19] MEDS: HEPARIN SOD (PORCINE) 5,000 UNIT/ML 1 ML VIAL SUBCUT SCH (05:39)
[2020-08-19] MEDS: CARVEDILOL 12.5 MG TABLET PO SCH (05:39)
[2020-08-19] MEDS ORDERED: FUROSEMIDE INJ/PF 40 MG/4 ML SDV IV SCH (06:00)
[2020-08-19] MEDS: ALBUTEROL SULFATE 0.083% NEB 2.5 MG/3 ML AMPUL NEB SCH ×2 (08:17→12:34)
[2020-08-19 09:24] LABS: ABSOLUTE BASOPHILS # (AUTO) 0.1 10^3/uL (0.0-0.2); ABSOLUTE EOSINOPHILS # (AUTO) 0.1 10^3/uL (0.0-0.6); ABSOLUTE LYMPHOCYTES (AUTO) 1.7 10^3/uL (0.5-4.7); ABSOLUTE MONOCYTES (AUTO) 1.1 10^3/uL (0.1-1.4); ABSOLUTE NEUT (AUTO) 6.4 10^3/uL (1.7-8.2); EOSINOPHILS % (AUTO) 1.1 % (0-6); HEMATOCRIT 31.8 % (37.9-51.0); HEMOGLOBIN 10.1 g/dL (13.5-17.0); LYMPHOCYTES % (AUTO) 18.4 % (13-45); MEAN CORPUSCULAR HEMOGLOBIN 24.7 pg (27.0-33.4); MEAN CORPUSCULAR HGB CONC 31.8 g/dL (32.0-36.0); MEAN CORPUSCULAR VOLUME 78 fl (80-97); MONOCYTES % (AUTO) 11.5 % (3-13); RED CELL DISTRIBUTION WIDTH 15.6 % (11.5-14.0); TOTAL CELLS COUNTED % (AUTO) 100 %; WHITE BLOOD COUNT 9.5 10^3/uL (4.0-10.5)
[2020-08-19 09:36] LABS: PLATELET COUNT 235 10^3/uL (150-450)
[2020-08-19] MEDS: CLOPIDOGREL BISULFATE 75 MG TABLET NG SCH (11:01)
[2020-08-19] MEDS: AMLODIPINE BESYLATE 10 MG TABLET PO SCH (11:01)
[2020-08-19] MEDS: ASPIRIN 81 MG TABLET, ENT COATED PO SCH (11:01)
[2020-08-19] MEDS: PREDNISONE 20 MG TABLET PO SCH (11:01)
[2020-08-19] MEDS: TAMSULOSIN HCL 0.4 MG CAP.SR.24H PO SCH (11:02)
[2020-08-19 13:23] VITALS: BP 120/47
--- NOTE | 2020-08-19 15:01 | PDOC DISCHARGE SUMMARY ---
Impression - Admit/DC Date/PCP Admission Date/Primary Care Provider: 08/13/20 15:36 KENYON ALVARENGA MD (1) Acute hypoxemic respiratory failure Is this a current diagnosis for this admission?: Yes Plan: * Supplemental oxygen to maintain SPO2 93+%. * Wean to room air as tolerated. * * * 08/18/2020-patient admitted for acute hypoxic respiratory failure secondary to CHF exacerbation resolved. Pulse ox is 96% room air today. * * * 08/19/2020-acute hypoxic respiratory failure is resolved. Pulse ox is 96% room air. Patient is stable to go home today. (2) Acute decompensated heart failure Is this a current diagnosis for this admission?: Yes Plan: * Continue diuresis. Remove Rose catheter. Should be able to resume home diuretic regimen tomorrow. * Of note, his home diuretic regimen includes: Zaroxolyn 2.5 mg p.o. q. Friday: Demadex 40 mg p.o. twice daily; Lasix 40 mg p.o. twice daily. * 2D echo (08/14): Pleural effusion was noted. LVEF 55% with normal diastolic function. No definite wall motion abnormality. LA was moderately dilated. Moderate pulmonary hypertension by echo. RVSP 52-57 mmHg. IVC appeared normal with > 50% respiratory phasic variation (RAP 5-10 mmHg). * * * 08/19/2020-patient admitted with acutely decompensated heart failure with EF of 55 on normal diastolic heart failure. Moderate pulmonary hypertension present by echo. He is euvolemic on examination today. advised to be compliant with medications and follow-up with the bobbin loose end finder next week. (3) COPD with exacerbation Is this a current diagnosis for this admission?: Yes Plan: * Of note, at home, he only uses albuterol aerosol as needed. * Decrease prednisone to 20 mg p.o. daily. * 2D echo showed moderate pulmonary hypertension without overt signs of volume overload. * Continue albuterol/budesonide scheduled. * * * 08/18/2020-patient is doing well. Walking in the room without oxygen supp lementations. Pulse ox is 96% room air. On examination chest bilateral entry was decreased no wheezing no crepitations present. (4) Hypertension Qualifiers: Hypertension type: essential hypertension Qualified Code(s): I10 - Essential (primary) hypertension Is this a current diagnosis for this admission?: No Plan: * Currently on carvedilol 12.5 mg p.o. twice daily; Nitropaste 1 inch every 6 hours; Demadex 20 mg p.o. daily; furosemide 40 mg IV every 12 hours; tamsulos in 0.4 mg p.o. daily. * Notably, the patient is on no antihypertensive medications (aside from diuretics and Flomax) at home. * Start Norvasc 10 mg p.o. daily. * Stop Nitropaste. * Continue carvedilol. * * * 08/18/2020-blood pressure today is 129/65. Heart rate is in the 50s. Asymptomatic. (5) Obesity (BMI 30-39.9) Is this a current diagnosis for this admission?: Yes (6) Sundowning Is this a current diagnosis for this admission?: Yes Plan: * Trial of Seroquel 25 mg p.o. daily. (7) Aortic stenosis Qualifiers: Cardiac valve disease etiology: etiology unspecified Qualified Code(s): I35.0 - Nonrheumatic aortic (valve) stenosis Discharge Date: 08/19/20 - Discharge Diagnosis (1) Acute hypoxemic respiratory failure Is this a current diagnosis for this admission?: Yes (2) Acute decompensated heart failure Is this a current diagnosis for this admission?: Yes (3) COPD with exacerbation Is this a current diagnosis for this admission?: Yes (4) Hypertension Is this a current diagnosis for this admission?: No (5) Obesity (BMI 30-39.9) Is this a current diagnosis for this admission?: Yes (6) Sundowning Is this a current diagnosis for this admission?: Yes (7) Aortic stenosis Is this a current diagnosis for this admission?: Yes - Additional Information Resuscitation Status: Full Code Discharge Diet: Cardiac Discharge Activity: Activity As Tolerated, Balance Activity w/Rest, Weigh Daily Referrals: KENYON ALVARENGA MD [Primary Care Provider] - 08/31/20 11:00 am Prescriptions: Carvedilol [Coreg 12.5 mg Tablet] 12.5 mg PO Q12A 30 Days #60 tablet Pantoprazole Sodium [Protonix [address] Tablet] 40 mg PO BID@0600,1700 30 Days #60 tablet. Montelukast Sodium [Singulair 10 mg Tablet] 10 mg NG QHS 30 Days #30 tablet Home Medications: Albuterol Sulfate [Ventolin 0.083% Neb 2.5 mg/3 mL Ampul] 2.5 mg NEB QID 04/15/20 Clopidogrel Bisulfate [Plavix 75 mg Tablet] 75 mg PO DAILY 04/15/20 Torsemide [Demadex 20 mg Tablet] 40 mg PO BID 04/15/20 Albuterol Sulfate [Proair HFA Inhalation Aerosol 8.5 gm MDI] 1 puff IH Q4HP PRN #1 hfa.aer.ad 04/17/20 Furosemide [Lasix 40 mg Tablet] 40 mg PO BID 04/29/20 Aspirin [Ecotrin 81 mg EC Tablet] 81 mg PO DAILY 08/13/20 Atorvastatin Calcium [Lipitor 10 mg Tablet] 10 mg PO QHS 08/13/20 Metolazone [Zaroxolyn 2.5 mg Tablet] 2.5 mg PO MO@1000 08/13/20 Tamsulosin HCl [Flomax] 0.4 mg PO DAILY 08/13/20 Carvedilol [Coreg 12.5 mg Tablet] 12.5 mg PO Q12A 30 Days #60 tablet 08/19/20 Montelukast Sodium [Singulair 10 mg Tablet] 10 mg NG QHS 30 Days #30 tablet 08/19/20 Pantoprazole Sodium [Protonix [address] Tablet] 40 mg PO BID@0600,1700 30 Days #60 tablet. 08/19/20 History of Present Illiness History of Present Illness: JANEY WILSON is a 79 year old male 79 yo man found in respiratory distress by EMS. Patient's O2 saturations were noted to be in the 70s. How accurate is not known but the pt then became unresponsive and was intubated in the field. He is on the ventilator sedated on diprivan. His BNP is 17K. 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 His of HTN, non-compliance, COPD, CHF by old records. No family currently available. Hospital Course Hospital Course: 79-year-old male was admitted to [facility] on 08/13/2020 after presenting to the emergency department via EMS with respiratory distress. Initially, his SPO2 was found to be in the 70s. He was unresponsive and intubated in the field. He was admitted to the ICU with a working diagnosis of acute compensated CHF and COPD exacerbation. 12/14: The patient self extubated prior to morning rounds. He is a little groggy, but awake and answers appropriately. Follows commands. He is currently on a nonrebreather mask, SPO2 100%. 08/15: The patient was noncompliant with CPAP. Could not tolerate wearing the mask. Mentating well. On 3 LPM via nasal cannula. Daughter at bedside; updated. Creatinine 2.4 this a.m. On Demadex 20 mg p.o. daily in addition to furosemide 40 mg IV every 12 hours. 08/16: Rose catheter was removed yesterday. Had urinary retention that prompted reinsertion. Had an episode of sundowning yesterday evening. Had not slept at all on the previous night. Got 1 dose of Haldol 5 mg IV followed by Geodon 10 mg IM. He was started on Precedex infusion, which was weaned off during mortgage loan coordinator. He slept comfortably all night long. Now resting comfortably in the bed. Apologetic over his behavior from the previous day. 08/17: Doing well from a respiratory standpoint. Blood pressure ([id number]) still elevated, worse with psychomotor agitation and sundowning. Off Precedex. Haldol does not seem to be effective in controlling his sundowning. Geodon does have helpful effects, but the patient understandably does not like IM administration. Now resting comfortably in bed. 08/18/2020-patient is comfortably in the room walking around. Not in distress. Expressing desire to go home. He was downgraded from ICU today. Patient may be able to go home tomorrow. Patient has a severe sundowning he is under one-to-one observation. He received Seroquel 25 mg p.o. last night slept good. 08/19/20-patient is doing well. Euvolemic. Expressing desire to go home. Advised to continue present medications at home. Physical Exam Vital Signs: Temp Pulse Resp BP Pulse Ox 97.6 F 70 16 103/40 L 97 08/19/20 11:44 08/19/20 12:34 08/19/20 12:34 08/19/20 11:44 08/19/20 12:34 Intake & Output 08/18/20 08/19/20 08/20/20 06:59 06:59 06:59 Intake Total 1434 Output Total 700 Balance -700 1434 Weight 104.1 kg 103.6 kg 103.6 kg General appearance: PRESENT: no acute distress Head exam: PRESENT: atraumatic Eye exam: PRESENT: PERRLA Neck exam: ABSENT: carotid bruit, JVD, lymphadenopathy, thyromegaly Respiratory exam: PRESENT: decreased breath sounds Cardiovascular exam: PRESENT: RRR. ABSENT: diastolic murmur, rubs, systolic murmur GI/Abdominal exam: PRESENT: normal bowel sounds, soft. ABSENT: distended, guarding, mass, organolmegaly, rebound, tenderness Rectal exam: PRESENT: deferred Extremities exam: PRESENT: full ROM. ABSENT: calf tenderness, clubbing, pedal edema Neurological exam: PRESENT: alert, awake, oriented to person, oriented to place, oriented to time, oriented to situation, CN II-XII grossly intact. ABSENT: motor sensory deficit Psychiatric exam: PRESENT: appropriate affect, normal mood. ABSENT: homicidal ideation, suicidal ideation Results Laboratory Results: WBC 9.5 10^3/uL (4.0-10.5) 08/19/20 08:38 RBC 4.10 10^6/uL (4.35-5.55) L 08/19/20 08:38 Hgb 10.1 g/dL (13.5-17.0) L 08/19/20 08:38 Hct 31.8 % (37.9-51.0) L 08/19/20 08:38 MCV 78 fl (80-97) L 08/19/20 08:38 MCH 24.7 pg (27.0-33.4) L 08/19/20 08:38 MCHC 31.8 g/dL (32.0-36.0) L 08/19/20 08:38 RDW 15.6 % (11.5-14.0) H 08/19/20 08:38 Plt Count 235 10^3/uL (150-450) 08/19/20 08:38 Lymph % (Auto) 18.4 % (13-45) 08/19/20 08:38 [place] % (Auto) 11.5 % (3-13) 08/19/20 08:38 Eos % (Auto) 1.1 % (0-6) 08/19/20 08:38 Baso % (Auto) 1.0 % (0-2) 08/19/20 08:38 Absolute Neuts (auto) 6.4 10^3/uL (1.7-8.2) 08/19/20 08:38 Absolute Lymphs (auto) 1.7 10^3/uL (0.5-4.7) 08/19/20 08:38 Absolute Monos (auto) 1.1 10^3/uL (0.1-1.4) 08/19/20 08:38 Absolute Eos (auto) 0.1 10^3/uL (0.0-0.6) 08/19/20 08:38 Absolute Basos (auto) 0.1 10^3/uL (0.0-0.2) 08/19/20 08:38 Total Counted 08/16/20 04:00 Seg Neutrophils % 68.0 % (42-78) 08/19/20 08:38 Seg Neuts % (Manual) % (42-78) 08/16/20 04:00 Lymphocytes % (Manual) % (13-45) 08/16/20 04:00 Monocytes % (Manual) % (3-13) 08/16/20 04:00 Eosinophils % (Manual) % (0-6) 08/16/20 04:00 Basophils % (Manual) % (0-2) 08/16/20 04:00 Abs Neuts (Manual) 10^3/uL (1.7-8.2) 08/16/20 04:00 Abs Lymphs (Manual) 10^3/uL (0.5-4.7) 08/16/20 04:00 Abs Monocytes (Manual) 10^3/uL (0.1-1.4) 08/16/20 04:00 Absolute Eos (Manual) 10^3/uL (0.0-0.6) 08/16/20 04:00 Abs Basophils (Manual) 10^3/uL (0.0-0.2) 08/16/20 04:00 Clumped Platelets 08/16/20 04:00 Platelet Comment 08/16/20 04:00 PT 15.3 SEC (11.4-15.4) 08/14/20 04:14 INR 1.19 08/14/20 04:14 APTT 35.4 SEC (23.5-35.8) 08/14/20 04:14 D-Dimer 1.95 ug/mL (0.00-0.50) H 08/13/20 12:29 Carbonic Acid 1.47 mmol/L (1.05-1.35) H 08/13/20 14:49 HCO3/H2CO3 Ratio 15:1 08/13/20 14:49 ABG pH 7.29 (7.35-7.45) L 08/13/20 14:49 ABG pCO2 48.7 mmHg (35-45) H 08/13/20 14:49 ABG pO2 110.0 mmHg (80-100) H 08/13/20 14:49 ABG HCO3 22.8 mmol/L (20-24) 08/13/20 14:49 ABG Total CO2 24.3 mmol/L (23-27) 08/13/20 14:49 ABG O2 Saturation 97.5 % (94-98) 08/13/20 14:49 ABG Base Excess -3.8 mmol/L 08/13/20 14:49 FiO2 50% 08/13/20 14:49 Sodium Cancelled 08/19/20 08:38 Potassium Cancelled 08/19/20 08:38 Chloride Cancelled 08/19/20 08:38 Carbon Dioxide Cancelled 08/19/20 08:38 Anion Gap Cancelled 08/19/20 08:38 BUN Cancelled 08/19/20 08:38 Creatinine Cancelled 08/19/20 08:38 Est GFR ( Amer) Cancelled 08/19/20 08:38 Est GFR (Non-Af Amer) Cancelled 08/19/20 08:38 Est GFR (MDRD) Non-Af Cancelled 08/19/20 08:38 Glucose Cancelled 08/19/20 08:38 Calcium Cancelled 08/19/20 08:38 Phosphorus 4.5 mg/dL (2.5-4.5) 08/17/20 04:17 Magnesium Cancelled 08/19/20 08:38 Total Bilirubin Cancelled 08/19/20 08:38 Direct Bilirubin Cancelled 08/19/20 08:38 Neonat Total Bilirubin Cancelled 08/19/20 08:38 Neonat Direct Bilirubin Cancelled 08/19/20 08:38 Neonat Indirect Bili Cancelled 08/19/20 08:38 AST Cancelled 08/19/20 08:38 ALT Cancelled 08/19/20 08:38 Alkaline Phosphatase Cancelled 08/19/20 08:38 Creatine Kinase 41 U/L (55-170) L 08/13/20 12:29 Troponin I 0.068 ng/mL 08/13/20 12:29 NT-Pro-B Natriuret Pep 70524 pg/mL (<450) H 08/17/20 04:17 Total Protein Cancelled 08/19/20 08:38 Albumin Cancelled 08/19/20 08:38 EGFR Cancelled 08/19/20 08:38 Urine Color STRAW 08/13/20 14:25 Urine Appearance CLEAR 08/13/20 14:25 Urine pH 5.0 (5.0-9.0) 08/13/20 14:25 Ur Specific [place] 1.009 08/13/20 14:25 Urine Protein 100 mg/dL (NEGATIVE) H 08/13/20 14:25 Urine Glucose (UA) NEGATIVE mg/dL (NEGATIVE) 08/13/20 14:25 Urine Ketones NEGATIVE mg/dL (NEGATIVE) 08/13/20 14:25 Urine Blood SMALL (NEGATIVE) H 08/13/20 14:25 Urine Nitrite NEGATIVE (NEGATIVE) 08/13/20 14:25 Urine Bilirubin NEGATIVE (NEGATIVE) 08/13/20 14:25 Urine Urobilinogen NEGATIVE mg/dL (<2.0) 08/13/20 14:25 Ur Leukocyte Esterase NEGATIVE (NEGATIVE) 08/13/20 14:25 Urine WBC (Auto) 1 /HPF 08/13/20 14:25 Urine RBC (Auto) 3 /HPF 08/13/20 14:25 U Hyaline Cast (Auto) 1 /LPF 08/13/20 14:25 Urine Ascorbic Acid NEGATIVE (NEGATIVE) 08/13/20 14:25 Influenza A (RT-PCR) NEGATIVE (NEGATIVE) 08/13/20 17:00 Influenza B (RT-PCR) NEGATIVE (NEGATIVE) 08/13/20 17:00 RSV (RT-PCR) NEGATIVE (NEGATIVE) 08/13/20 17:00 SARS-CoV-2 Rap RNA(RT-PCR) NEGATIVE (NEGATIVE) 08/13/20 17:00 08/13/20 08/16/20 08/16/20 12:29 04:00 06:15 Troponin I 0.068 NT-Pro-B Natriuret Pep 09152 H Cancelled [id number] H 08/17/20 04:17 Troponin I NT-Pro-B Natriuret Pep [id number] H Impressions: Chest X-Ray 08/13/20 12:27 IMPRESSION: Lines and tubes as above. Pulmonary edema and small left pleural effusion. Cardiomegaly. Chest X-Ray 08/14/20 06:00 IMPRESSION: Tubes and lines as above. Otherwise unchanged radiographic appearance of the chest. Plan Time Spent: Greater than 30 Minutes Stroke Is this a Stroke Patient?: No Acute Heart Failure Is this a Heart Failure Patient?: No
[2020-08-19] MEDS ORDERED: PANTOPRAZOLE SODIUM 40 MG TABLET.DR PO SCH (17:00)
== END 2020-08-19 15:45 | disposition home or self-care (01) | DRG 208 ==
LOC: ER 12:21 → EH 15:36 → ICU 16:40 → 3S 08-18 09:02
PROVIDERS: ADMIT Anesthesiology; ATTEND Internal Medicine
PROC: 5A1945Z Respiratory Ventilation, 24-96 Consecutive Hours (ICD-10-PCS; principal; 2020-08-13)
PROC: 0BH17EZ Insertion of Endotracheal Airway into Trachea, Via Natural or Artificial Opening (ICD-10-PCS; 2020-08-13)
PROC: 5A09457 Assistance with Respiratory Ventilation, 24-96 Consecutive Hours, Continuous Positive Airway Pressure (ICD-10-PCS; 2020-08-14)
PROC: B24BZZ4 Ultrasonography of Heart with Aorta, Transesophageal (ICD-10-PCS; 2020-08-14)
PROC: 3E02340 Introduction of Influenza Vaccine into Muscle, Percutaneous Approach (ICD-10-PCS; 2020-08-17)
DX: J96.01 Acute respiratory failure with hypoxia (principal); I50.31 Acute diastolic (congestive) heart failure; J44.1 Chronic obstructive pulmonary disease with (acute) exacerbation; F05 Delirium due to known physiological condition; N17.9 Acute kidney failure, unspecified; I11.0 Hypertensive heart disease with heart failure; E66.9 Obesity, unspecified; I35.0 Nonrheumatic aortic (valve) stenosis; K21.9 Gastro-esophageal reflux disease without esophagitis; Z20.828 Contact with and (suspected) exposure to other viral communicable diseases; Z23 Encounter for immunization; Z79.02 Long term (current) use of antithrombotics/antiplatelets; Z79.82 Long term (current) use of aspirin; Z79.899 Other long term (current) drug therapy; Z91.19 Patient's noncompliance with other medical treatment and regimen; Z95.5 Presence of coronary angioplasty implant and graft; Z87.891 Personal history of nicotine dependence; Z78.1 Physical restraint status
CPT/HCPCS: 36415; 36600; 71045; 80048; 80053; 81001; 82550; 82803; 83735; 83880; 84100; 84484; 85025; 85379; 85610; 85730; 87040; 93005; 93010; 93306; 94002; 94003; 94640; 94660; 96365; 96375; 99285; 99291; 0241U; C9803; J0360; J1630; J1644; J1940; J2704; J3010; J3486; J3490; J7512; J7613; S0028